=== PATIENT | female | born 1970 | race Caucasian/White ===

== ENCOUNTER 2016-07-21 19:46 | Emergency (ER) | payer MEDICARE ==
[2016-07-21 20:25] VITALS: RESP 18
[2016-07-21] MEDS ORDERED: SODIUM CHLORIDE 0.9% 1,000 ML IV STA ×2 (20:31)
[2016-07-21] MEDS ORDERED: RX INFO: IV CONTRAST WAS GIVEN 1 EACH MISC MISCELLANE PRN (20:31)
[2016-07-21] MEDS ORDERED: MORPHINE SULFATE 4 MG/ML SYRINGE IV STA (20:31)
--- NOTE | 2016-07-21 20:57 | ED ---
General Adult HPI - General Chief complaint: Abdominal Pain Stated complaint: Left Flank Pain Time Seen by Provider: 07/21/16 20:31 Source: patient, RN notes reviewed, old records reviewed Mode of arrival: ambulatory Limitations: no limitations - History of Present Illness Initial comments: This is a 46-year-old female the ER for evaluation. Patient presents today for evaluation of abdominal pain. Patient was any with severe abdominal pain left flank pain left groin pain. Left sided abdominal pain. Patient has history of multiple abdominal surgeries appendectomy Nevin hysterectomy. Patient denies any fevers, no diarrhea, no blood in her stool. No nausea vomiting. No recent travel history, no sick contacts. No colonoscopy history - Related Data Home Medications Medication Instructions Recorded Confirmed ALPRAZolam [Xanax] 1 mg PO BID PRN 04/04/15 07/21/16 Calcium Carbonate/Vitamin D3 1 tab PO DAILY 04/04/15 07/21/16 [Calcium 600 + Vit D Tablet] Cetirizine HCl [Zyrtec] 10 mg PO DAILY 04/04/15 07/21/16 Cholecalciferol [Vitamin D3] 5,000 unit PO DAILY 04/04/15 07/21/16 Est Estrogen 0.625 mg PO DAILY 04/04/15 07/21/16 Hydrocodone/Acetaminophen [[place] 1 tab PO Q6H PRN 04/04/15 07/21/16 10-325] Lisinopril [Zestril] 40 mg PO HS 04/04/15 07/21/16 Metoprolol Tartrate [Lopressor] 50 mg PO BID 04/04/15 07/21/16 amLODIPine [Norvasc] 10 mg PO HS 04/04/15 07/21/16 Gabapentin [Neurontin] 100 mg PO QAM 03/12/16 07/21/16 Bisacodyl [Dulcolax] 5 mg PO DAILY 07/21/16 07/21/16 DULoxetine HCL [Cymbalta] 30 mg PO DAILY 07/21/16 07/21/16 Gabapentin [Neurontin] 200 mg PO HS 07/21/16 07/21/16 Magnesium Oxide [Mag-Ox] 400 mg PO DAILY 07/21/16 07/21/16 Multivitamins, Thera [Multivitamin] 1 tab PO DAILY 01/04/17 01/04/17 Previous Rx's Medication Instructions Recorded Nitrofurantoin Monohyd/M-Cryst 100 mg PO Q12HR #14 cap 07/21/16 [Macrobid] Allergies Allergy/AdvReac Type Severity Reaction Status Date / Time No Known Allergies Allergy Verified 07/21/16 20:51 Review of Systems ROS Statement: Those systems with pertinent positive or pertinent negative responses have been documented in the HPI. ROS Other: All systems not noted in ROS Statement are negative. Past Medical History Past Medical History: Hypertension History of Any Multi-Drug Resistant Organisms: None Reported Past Surgical History: Appendectomy, Cholecystectomy, Hysterectomy, Orthopedic Surgery Additional Past Surgical History / Comment(s): back pain Past Psychological History: Anxiety Smoking Status: Never smoker Past Alcohol Use History: None Reported Past Drug Use History: None Reported General Exam Limitations: no limitations General appearance: alert, in no apparent distress, anxious Head exam: Present: atraumatic, normocephalic, normal inspection Eye exam: Present: normal appearance, PERRL, EOMI. Absent: scleral icterus, conjunctival injection, periorbital swelling ENT exam: Present: normal exam, mucous membranes moist Neck exam: Present: normal inspection. Absent: tenderness, meningismus, lymphadenopathy Respiratory exam: Present: normal lung sounds bilaterally. Absent: respiratory distress, wheezes, rales, rhonchi, stridor Cardiovascular Exam: Present: regular rate, normal rhythm, normal heart sounds. Absent: systolic murmur, diastolic murmur, rubs, gallop, clicks GI/Abdominal exam: Present: soft, normal bowel sounds. Absent: distended, tenderness, guarding, rebound, rigid Extremities exam: Present: normal inspection, full ROM, normal capillary refill. Absent: tenderness, pedal edema, joint swelling, calf tenderness Back exam: Present: normal inspection Neurological exam: Present: alert, oriented X3, CN II-XII intact Psychiatric exam: Present: normal affect, normal mood Skin exam: Present: warm, dry, intact, normal color. Absent: rash Course Vital Signs 07/21/16 20:23 Temperature 98.0 F Pulse Rate 75 Respiratory 18 Rate Blood Pressure 138/75 O2 Sat by Pulse 99 Oximetry - Reevaluation(s) Reevaluation #1: 07/21/16 22:11 Patient's pain is much improved at this time Medical Decision Making - Medical Decision Making 46 female here for evaluation for bowel pain, patient does have severe abdominal pain. Patient's pain is improved with narcotic pain management, CT of abdomen and pelvis is negative for acute disease - Lab Data Result diagrams: 07/21/16 21:15 Lab Results 07/21/16 07/21/16 Range/Units 21:15 22:12 WBC 7.1 (3.8-10.6) k/uL RBC 4.93 (3.80-5.40) m/uL Hgb 14.4 (11.4-16.0) gm/dL Hct 45.1 (34.0-46.0) % MCV 91.6 (80.0-100.0) fL MCH 29.3 (25.0-35.0) pg MCHC 32.0 (31.0-37.0) g/dL RDW 13.2 (11.5-15.5) % Plt Count 297 (150-450) k/uL Neutrophils % 66 % Lymphocytes % 25 % Monocytes % 5 % Eosinophils % 2 % Basophils % 1 % Neutrophils # 4.7 (1.3-7.7) k/uL Lymphocytes # 1.8 (1.0-4.8) k/uL Monocytes # 0.4 (0-1.0) k/uL Eosinophils # 0.1 (0-0.7) k/uL Basophils # 0.0 (0-0.2) k/uL Urine Color Yellow Urine Appearance Cloudy H (Clear) Urine pH 6.5 (5.0-8.0) Ur Specific [place] 1.017 (1.001-1.035) Urine Protein Negative (Negative) Urine Glucose (UA) Negative (Negative) Urine Ketones Negative (Negative) Urine Blood Negative (Negative) Urine Nitrate Negative (Negative) Urine Bilirubin Negative (Negative) Urine Urobilinogen <2.0 (<2.0) mg/dL Ur Leukocyte Esterase Large H (Negative) Urine RBC 6 H (0-5) /hpf Urine WBC 25 H (0-5) /hpf Ur Squamous Epith Cells 6 H (0-4) /hpf Urine Bacteria Rare H (None) /hpf Hyaline Casts 6 H (0-2) /lpf Urine Mucus Many H (None) /hpf - Radiology Data Radiology results: report reviewed (CT abdomen and pelvis is negative for acute disease), image reviewed Disposition Clinical Impression: Abdominal pain, UTI (urinary tract infection) Disposition: HOME SELF-CARE Condition: Good Instructions: Abdominal Pain (ED) Prescriptions: Nitrofurantoin Monohyd/M-Cryst [Macrobid] 100 mg PO Q12HR #14 cap Referrals: Yoandy Goodwin MD [Primary Care Provider] - 1-2 days
[2016-07-21] MEDS ORDERED: HYDROmorphone 1 MG/ML 1 ML SYRINGE IVP STA ×2 (21:14→22:18)
[2016-07-21 21:43] LABS: Basophils % (A) 1 %; CH 30.1; CHCM 33.1; Eosinophils # (A) 0.1 k/uL (0-0.7); Eosinophils % (A) 2 %; HCT 45.1 % (34.0-46.0); HDW 2.59; HGB 14.4 gm/dL (11.4-16.0); Luc # (Auto) 0.12; Luc % (Auto) 2; Lymphocytes # (A) 1.8 k/uL (1.0-4.8); Lymphocytes % (A) 25 %; MCH 29.3 pg (25.0-35.0); MCV 91.6 fL (80.0-100.0); Mean Platelet Volume 7.4; Monocytes # (A) 0.4 k/uL (0-1.0); Monocytes % (A) 5 %; Neutrophils # (A) 4.7 k/uL (1.3-7.7); Neutrophils % (A) 66 %; RBC 4.93 m/uL (3.80-5.40); RDW 13.2 % (11.5-15.5); WBC 7.1 k/uL (3.8-10.6); WBC (Perox) 7.24
--- NOTE | 2016-07-21 22:03 | CT ---
EXAMINATION TYPE: CT abdomen pelvis w con DATE OF EXAM: 07/21/2016 9:53 PM COMPARISON: 03/12/2016 HISTORY: LLQ pain x2 weeks. CT DLP: 2189.5 mGycm Automated exposure control for dose reduction was used. TECHNIQUE: Helical acquisition of images was performed from the lung bases through the pelvis. CONTRAST: Performed without Oral Contrast and with IV Contrast, patient injected with 100 mL of Omnipaque 300. FINDINGS: Lung bases are clear. There is no pleural effusion. There are clips from cholecystectomy. Liver spleen pancreas appear normal. Bile ducts are not dilated . There is no adrenal mass. Kidneys have normal size and contour. There is a 5 mm calcification in th e lower pole left kidney. There is a 3 mm calcification in the upper pole left kidney. There is a 2 c m cyst in the inferior spleen. There is no retroperitoneal adenopathy. There is no ascites. Appendix is not seen. There is no sign o f appendicitis. Bladder distends smoothly. There is no sign of a pelvic mass. There are a few diverti cula in the sigmoid colon. There is no sign of a pelvic mass. I see no bony destructive process. Ther e are spondylotic changes from L3 to S1 with disc space narrowing and vacuum disc. There is probably some bony spinal stenosis at L3-4 and L4-5. There are surgical clips in the stomach apparently from b ariatric surgery. IMPRESSION: SMALL SPLENIC CYST. NONOBSTRUCTING SMALL LEFT RENAL CALCULI. MILD SIGMOID DIVERTICULOSIS. NO SIGN OF ACUTE ABDOMEN AND PELVIS. NO ADVERSE CHANGE COMPARED TO CT SCAN. PREVIOUS SURGERY. THERE IS EVIDENCE OF LUMBAR SPINAL STENOSIS MAINLY AT L4-5.
[2016-07-21] MEDS ORDERED: KETOROLAC 30 MG/ML 1 ML VIAL IVP STA (22:18)
[2016-07-21 22:31] LABS: Appearance,Urine Cloudy (Clear); Bacteria,Urine Rare /hpf; Bilirubin,Urine Negative (Negative); Glucose,Urine (UA) Negative (Negative); Ketones,Urine Negative (Negative); Leukocyte Esterase,Urine Large (Negative); Mucus,Urine Many /hpf; Nitrite,Urine Negative (Negative); PH, Urine 6.5 (5.0-8.0); Particle Count 16253; Protein,Urine Negative (Negative); RBC,Urine 6 /hpf (0-5); Specific Gravity,Urine 1.017 (1.001-1.035); Squamous Epithelial Cell,Urine 6 /hpf (0-4); UA Billing (MACRO vs. MICRO) MICRO; Urobilinogen,Urine <2.0 mg/dL (<2.0); WBC,Urine 25 /hpf (0-5)
[2016-07-21] MEDS ORDERED: NITROFURANTOIN MONOHYD/M-CRYST 100 MG CAP PO STA (22:42)
[2016-07-21 22:56] LABS: Amylase <30 U/L (30-110); Anion Gap 11 mmol/L; Calcium 9.3 mg/dL (8.4-10.2); Carbon Dioxide 28 mmol/L (22-30); Chloride 102 mmol/L (98-107); Glucose 97 mg/dL (74-99); Non-African American GFR(MDRD) >60 (>60 ml/min/1.73 sqM); Sodium 141 mmol/L (137-145); Total Bilirubin 0.7 mg/dL (0.2-1.3)
[2016-07-21 23:00] VITALS: BP 157/76; PULSE 70; TEMP 97.5
[2016-07-21 23:05] LABS: Potassium 4.5 mmol/L (3.5-5.1); Total Protein 6.9 g/dL (6.3-8.2)
[2016-07-21 23:06] LABS: ALT 39 U/L (9-52); AST 37 U/L (14-36); Alkaline Phosphatase 75 U/L (38-126); Blood Urea Nitrogen 17 mg/dL (7-17)
== END 2016-07-21 23:20 | disposition home or self-care (01) ==
LOC: EC 19:46
DX: N39.0 Urinary tract infection, site not specified (principal); I10 Essential (primary) hypertension; F41.9 Anxiety disorder, unspecified; Z79.899 Other long term (current) drug therapy
CPT/HCPCS: 99284; 96374; 96376; 96375; 96361; 36415; 80053; 82150; 83605; 83690; 85025; 81001; 87086; 74177; J1885; J1170; Q9967

== ENCOUNTER 2016-07-24 01:44 | Emergency (ER) | payer MEDICARE ==
[2016-07-24 01:51] VITALS: BP 190/88; PULSE 83; RESP 18; TEMP 97.1
[2016-07-24] MEDS ORDERED: HYDROmorphone 1 MG/ML 1 ML SYRINGE IM STA (02:11)
--- NOTE | 2016-07-24 02:11 | ED ---
Abdominal Pain HPI - General Chief Complaint: Abdominal Pain Stated Complaint: abd pain Time Seen by Provider: 07/24/16 01:53 Source: patient, RN notes reviewed Mode of arrival: ambulatory Limitations: no limitations - History of Present Illness Initial Comments: 46-year-old female presents to emergency room chief complaint of left-sided abdominal wall pain. Patient states she's had this for about a week. Patient states started initially after lifting heavy boxes. Patient states it's in the left side of the abdomen. Patient states she stands up she notices a small bouts of left-sided the belly as well. Patient states she was seen here a few days ago she had a whole workup they thought maybe she had UTI and was sent home. Patient states antibiotics do not seem to be helping. Patient states the pain is just in the left side in one small area few touch. Patient denies any fever chills with this. Patient states she hasn't had any burning or seen in urination any nausea vomiting or diarrhea. Patient states she has had multiple surgeries to the abdomen. Patient denies any recent fever, chills, shortness of breath, chest pain, back pain, nausea vomiting, numbness or tingling, dysuria or hematuria, constipation or diarrhea, headaches or visual changes, or any other current symptoms. - Related Data Home Medications Medication Instructions Recorded Confirmed ALPRAZolam [Xanax] 1 mg PO BID PRN 04/04/15 07/24/16 Calcium Carbonate/Vitamin D3 1 tab PO DAILY 04/04/15 07/24/16 [Calcium 600 + Vit D Tablet] Cetirizine HCl [Zyrtec] 10 mg PO DAILY 04/04/15 07/24/16 Cholecalciferol [Vitamin D3] 5,000 unit PO DAILY 04/04/15 07/24/16 Est Estrogen 0.625 mg PO DAILY 04/04/15 07/24/16 Hydrocodone/Acetaminophen [[place] 1 tab PO Q6H PRN 04/04/15 07/24/16 10-325] Lisinopril [Zestril] 40 mg PO HS 04/04/15 07/24/16 Metoprolol Tartrate [Lopressor] 50 mg PO BID 04/04/15 07/24/16 amLODIPine [Norvasc] 10 mg PO HS 04/04/15 07/24/16 Gabapentin [Neurontin] 100 mg PO QAM 03/12/16 07/24/16 Bisacodyl [Dulcolax] 5 mg PO DAILY 07/21/16 07/24/16 DULoxetine HCL [Cymbalta] 30 mg PO DAILY 07/21/16 07/24/16 Gabapentin [Neurontin] 200 mg PO HS 07/21/16 07/24/16 Magnesium Oxide [Mag-Ox] 400 mg PO DAILY 07/21/16 07/24/16 Multivitamins, Thera [Multivitamin] 1 tab PO DAILY 07/21/16 07/24/16 Previous Rx's Medication Instructions Recorded Nitrofurantoin Monohyd/M-Cryst 100 mg PO Q12HR #14 cap 07/21/16 [Macrobid] Allergies Allergy/AdvReac Type Severity Reaction Status Date / Time No Known Allergies Allergy Verified 07/24/16 01:51 Review of Systems ROS Statement: Those systems with pertinent positive or pertinent negative responses have been documented in the HPI. ROS Other: All systems not noted in ROS Statement are negative. Past Medical History Past Medical History: Hypertension History of Any Multi-Drug Resistant Organisms: None Reported Past Surgical History: Appendectomy, Cholecystectomy, Hysterectomy, Orthopedic Surgery Additional Past Surgical History / Comment(s): back pain Past Psychological History: Anxiety Smoking Status: Never smoker Past Alcohol Use History: None Reported Past Drug Use History: None Reported General Exam - General Exam Comments Initial Comments: General: The patient is awake and alert, in no distress, and does not appear acutely ill. Eye: Pupils are equal, round and reactive to light, extra-ocular movements are intact; there is normal conjunctiva bilaterally. No signs of icterus. Ears, nose, mouth and throat: There are moist mucous membranes and no oral lesions. Neck: The neck is supple, there is no tenderness. Cardiovascular: There is a regular rate and rhythm. No murmur, rub or gallop is appreciated. Respiratory: Lungs are clear to auscultation, respirations are non-labored, breath sounds are equal. No wheezes, stridor, rales, or rhonchi. Gastrointestinal: Soft, non-distended, non-tender abdomen without masses or organomegaly noted. There is no rebound or guarding present. No CVA tenderness. Bowel sounds are unremarkable. Patient does appear to have one area that is superficially tender of the abdomen with no deep tenderness to palpation. Back: There is no tenderness to palpation in the midline. There is no obvious deformity. No rashes noted. Musculoskeletal: Normal ROM, no tenderness, There is no pedal edema. There is no calf tenderness or swelling. Sensation intact. Pulses equal bilaterally 2+. Neurological: CN II-XII intact, There are no obvious motor or sensory deficits. Coordination appears grossly intact. Speech is normal. Skin: Skin is warm and dry and no rashes or lesions are noted. Psychiatric: Cooperative, appropriate mood & affect, normal judgment. Limitations: no limitations Course Vital Signs 07/24/16 01:48 Temperature 97.1 F L Pulse Rate 83 Respiratory 18 Rate Blood Pressure 190/88 O2 Sat by Pulse 100 Oximetry Medical Decision Making - Medical Decision Making 46-year-old female presents emergency Department chief complaint of left-sided superficial abdominal pain. This discussed her suspicion for possible hernia versus other causes. CAT scan from previous and lab work was reviewed. Urine culture was read does not show sign of infection. At this time we discussed follow-up with her surgeon who she states is Dr. Sosa. We discussed that he needs to set the patient. We discussed return parameters and follow-up. We discussed all the patient's family's questions. He stated they understood. This and patient will be discharged home. Disposition Clinical Impression: Abdominal wall pain, Concern about hernia without diagnosis Disposition: HOME SELF-CARE Condition: Stable Instructions: Abdominal Pain (ED) Additional Instructions: Please use medication as discussed. Please follow up with family doctor if symptoms have not improved over the next two days. Please return to the emergency room if your symptoms increase or worsen or for any other concerns. Referrals: Yoandy Goodwin MD [Primary Care Provider] - 1-2 days [place] Sosa MD [Medical Doctor] - 1-2 days Time of Disposition: 02:11
== END 2016-07-24 02:29 | disposition home or self-care (01) ==
LOC: EC 01:44
DX: R10.9 Unspecified abdominal pain (principal); F41.9 Anxiety disorder, unspecified; I10 Essential (primary) hypertension; Z79.899 Other long term (current) drug therapy
CPT/HCPCS: 96372; 99283; J1170

== ENCOUNTER → 2016-08-04 | Outpatient (CLI) | payer MEDICARE ==
--- NOTE | 2016-08-04 23:06 | XR ---
EXAMINATION TYPE: XR abdomen 1V DATE OF EXAM: 08/04/2016 5:00 PM CLINICAL DATA: 46-year-old female left-sided kidney stones, [facility] COMPARISON: CT 07/21/2016 FINDINGS: Supine imaging limited for assessment of free air. Bowel gas pattern is nonobstructive. No significan t stool burden. Suture material in the upper abdomen relating to sleeve gastrectomy. Cholecystectomy clips are present along with a dropped clip in the right paramedian mid abdomen. Couple phlebolith in the pelvis. A clear suspicious urinary calcifications is not identified. Degenerative changes in the lumbar spine. IMPRESSION: The couple 6 mm left lower pole renal calculi seen on CT of 07/21/2016 are not well appreciated radiogr aphically.
== END | disposition home or self-care (01) ==
LOC: RADXRMAIN 16:38
PROVIDERS: ATTEND Family Medicine
DX: N20.0 Calculus of kidney (principal)
CPT/HCPCS: 74000

== ENCOUNTER 2016-09-26 21:11 | Emergency (ER) | payer MEDICARE ==
[2016-09-26] MEDS ORDERED: HYDROmorphone 1 MG/ML 1 ML SYRINGE IVP STA (23:31)
[2016-09-26] MEDS ORDERED: SODIUM CHLORIDE 0.9% 1,000 ML IV STA (23:31)
[2016-09-27 00:07] LABS: Basophils % (A) 1 %; CH 30.3; CHCM 33.2; Eosinophils # (A) 0.1 k/uL (0-0.7); Eosinophils % (A) 2 %; HCT 43.8 % (34.0-46.0); HDW 2.51; HGB 14.4 gm/dL (11.4-16.0); Luc # (Auto) 0.23; Luc % (Auto) 3; Lymphocytes # (A) 2.4 k/uL (1.0-4.8); Lymphocytes % (A) 31 %; MCH 30.3 pg (25.0-35.0); MCHC 32.9 g/dL (31.0-37.0); Mean Platelet Volume 7.3; Monocytes # (A) 0.4 k/uL (0-1.0); Monocytes % (A) 5 %; Neutrophils # (A) 4.4 k/uL (1.3-7.7); Neutrophils % (A) 58 %; RBC 4.77 m/uL (3.80-5.40); RDW 13.3 % (11.5-15.5); WBC 7.5 k/uL (3.8-10.6); WBC (Perox) 7.57
[2016-09-27 00:07] LABS: Appearance,Urine Clear (Clear); Bilirubin,Urine Negative (Negative); Glucose,Urine (UA) Negative (Negative); Ketones,Urine Negative (Negative); Leukocyte Esterase,Urine Negative (Negative); Nitrite,Urine Negative (Negative); Protein,Urine Negative (Negative); UA Billing (MACRO vs. MICRO) CHEM; Urobilinogen,Urine <2.0 mg/dL (<2.0)
[2016-09-27 00:22] LABS: ALT 33 U/L (9-52); AST 21 U/L (14-36); Alkaline Phosphatase 75 U/L (38-126); Amylase 45 U/L (30-110); Anion Gap 9 mmol/L; Blood Urea Nitrogen 14 mg/dL (7-17); Calcium 9.2 mg/dL (8.4-10.2); Carbon Dioxide 30 mmol/L (22-30); Chloride 103 mmol/L (98-107); Glucose 93 mg/dL (74-99); Non-African American GFR(MDRD) >60 (>60 ml/min/1.73 sqM); Potassium 4.3 mmol/L (3.5-5.1); Sodium 142 mmol/L (137-145); Total Bilirubin 0.5 mg/dL (0.2-1.3)
--- NOTE | 2016-09-27 00:51 | XR ---
EXAM: XR Abdomen, 1 View. CLINICAL HISTORY: Reason: abdominal pain TECHNIQUE: Frontal supine view of the abdomen/pelvis. COMPARISON: Abdominal radiographs 08/04/2016 FINDINGS: Intraperitoneal space: Bowel gas pattern is unremarkable. No evidence of bowel obstruction or pneumoperitoneum. Gastrointestinal tract: Unremarkable. No dilation. Organs: Surgical clips right upper quadrant compatible with previous cholecystectomy. No radiopaque renal calculi. No abnormal abdominal calcifications identified. Bones/joints: Unremarkable. IMPRESSION: No radiographic evidence of acute abdominal disease or bowel obstruction.
--- NOTE | 2016-09-27 01:06 | ED ---
Abdominal Pain HPI - General Chief Complaint: Abdominal Pain Stated Complaint: abd pain, Time Seen by Provider: 09/26/16 23:01 Source: patient, RN notes reviewed, old records reviewed Mode of arrival: wheelchair Limitations: no limitations - History of Present Illness Initial Comments: Patient is a 46 year old female with cheif complaint of chronic left lower quadrant abdominal pain. Patient states she has had CT scans, ultrasounds, and multiple lab tests. She states that she deals with this pain chronically, however the past day it became excrutiating. Patient states it feels as if her abdominal muscles are ripping. She denies any specific trauma or movements causing the injury. She states she has a history of kidney stones, but states that she knows this is different than her kidney stones. She states that the pain is only in the abdomen. She has a hysterectomy, and states it is unrelated to gynecologic reasons. She reports she had a bowel movement earlier today. She denies fever, chills, chest pain, shorntess of breath, vomiting, diarrhea, dysuria, hematuria, vaginal discharge. - Related Data Home Medications Medication Instructions Recorded Confirmed ALPRAZolam [Xanax] 1 mg PO BID PRN 04/04/15 09/26/16 Calcium Carbonate/Vitamin D3 1 tab PO DAILY 04/04/15 09/26/16 [Calcium 600 + Vit D Tablet] Cetirizine HCl [Zyrtec] 10 mg PO DAILY 04/04/15 09/26/16 Cholecalciferol [Vitamin D3] 5,000 unit PO DAILY 04/04/15 09/26/16 Est Estrogen 0.625 mg PO DAILY 04/04/15 09/26/16 Hydrocodone/Acetaminophen [[place] 1 tab PO Q6H PRN 04/04/15 09/26/16 10-325] Lisinopril [Zestril] 40 mg PO HS 04/04/15 09/26/16 Metoprolol Tartrate [Lopressor] 50 mg PO BID 04/04/15 09/26/16 amLODIPine [Norvasc] 10 mg PO HS 04/04/15 09/26/16 Gabapentin [Neurontin] 100 mg PO QAM 03/12/16 09/26/16 Bisacodyl [Dulcolax] 5 mg PO DAILY 07/21/16 09/26/16 DULoxetine HCL [Cymbalta] 30 mg PO DAILY 07/21/16 09/26/16 Gabapentin [Neurontin] 200 mg PO HS 07/21/16 09/26/16 Magnesium Oxide [Mag-Ox] 400 mg PO DAILY 07/21/16 09/26/16 Multivitamins, Thera [Multivitamin] 1 tab PO DAILY 07/21/16 09/26/16 Allergies Allergy/AdvReac Type Severity Reaction Status Date / Time No Known Allergies Allergy Verified 09/26/16 21:36 Review of Systems ROS Statement: Those systems with pertinent positive or pertinent negative responses have been documented in the HPI. ROS Other: All systems not noted in ROS Statement are negative. Past Medical History Past Medical History: Hypertension History of Any Multi-Drug Resistant Organisms: None Reported Past Surgical History: Appendectomy, Cholecystectomy, Hysterectomy, Orthopedic Surgery Additional Past Surgical History / Comment(s): back pain Past Psychological History: Anxiety Smoking Status: Never smoker Past Alcohol Use History: None Reported Past Drug Use History: None Reported General Exam Limitations: no limitations General appearance: alert, in no apparent distress Head exam: Present: atraumatic, normocephalic, normal inspection Eye exam: Present: normal appearance, PERRL, EOMI. Absent: scleral icterus, conjunctival injection, periorbital swelling ENT exam: Present: normal exam, mucous membranes moist Neck exam: Present: normal inspection. Absent: tenderness, meningismus, lymphadenopathy Respiratory exam: Present: normal lung sounds bilaterally. Absent: respiratory distress, wheezes, rales, rhonchi, stridor Cardiovascular Exam: Present: regular rate, normal rhythm, normal heart sounds. Absent: systolic murmur, diastolic murmur, rubs, gallop, clicks GI/Abdominal exam: Present: soft, tenderness (patient has tenderness with left lower quadrant. No evidence of bulging mass constent with hernia, patient has positive carnet sign. ), normal bowel sounds. Absent: distended, guarding, rebound, rigid Extremities exam: Present: normal inspection, full ROM, normal capillary refill. Absent: tenderness, pedal edema, joint swelling, calf tenderness Back exam: Present: normal inspection Neurological exam: Present: alert, oriented X3, CN II-XII intact Psychiatric exam: Present: normal affect, normal mood Skin exam: Present: warm, dry, intact, normal color. Absent: rash Course Vital Signs 09/26/16 09/27/16 21:34 01:40 Temperature 98.4 F 97.9 F Pulse Rate 83 77 Respiratory 20 16 Rate Blood Pressure 140/69 131/78 O2 Sat by Pulse 100 98 Oximetry Medical Decision Making - Medical Decision Making Patient is a 46 year old female with acute exacerbation of chronic left lower abdominal pain. Patient has had multiple tests for the past 6 months and no answers were found. Patient lab work was reviewed and patient reports that her pain is managed with IV pain medicine at this time. Patient labs and kub are negative for any acute process. I discussed that patient needs to follow up with PCP and to take at home pain medicaiton. Patient agrees with treatment plan and will comply. - Lab Data Result diagrams: 09/26/16 23:46 09/26/16 23:46 Lab Results 09/26/16 09/26/16 09/26/16 Range/Units 23:37 23:46 23:46 WBC 7.5 (3.8-10.6) k/uL RBC 4.77 (3.80-5.40) m/uL Hgb 14.4 (11.4-16.0) gm/dL Hct 43.8 (34.0-46.0) % MCV 92.0 (80.0-100.0) fL MCH 30.3 (25.0-35.0) pg MCHC 32.9 (31.0-37.0) g/dL RDW 13.3 (11.5-15.5) % Plt Count 310 (150-450) k/uL Neutrophils % 58 % Lymphocytes % 31 % Monocytes % 5 % Eosinophils % 2 % Basophils % 1 % Neutrophils # 4.4 (1.3-7.7) k/uL Lymphocytes # 2.4 (1.0-4.8) k/uL Monocytes # 0.4 (0-1.0) k/uL Eosinophils # 0.1 (0-0.7) k/uL Basophils # 0.0 (0-0.2) k/uL Sodium 142 (137-145) mmol/L Potassium 4.3 (3.5-5.1) mmol/L Chloride 103 (98-107) mmol/L Carbon Dioxide 30 (22-30) mmol/L Anion Gap 9 mmol/L BUN 14 (7-17) mg/dL Creatinine 0.70 (0.52-1.04) mg/dL Est GFR (MDRD) Af Amer >60 (>60 ml/min/1.73 sqM) Est GFR (MDRD) Non-Af >60 (>60 ml/min/1.73 sqM) Glucose 93 (74-99) mg/dL Calcium 9.2 (8.4-10.2) mg/dL Total Bilirubin 0.5 (0.2-1.3) mg/dL AST 21 (14-36) U/L ALT 33 (9-52) U/L Alkaline Phosphatase 75 (38-126) U/L Total Protein 7.0 (6.3-8.2) g/dL Albumin 3.9 (3.5-5.0) g/dL Amylase 45 (30-110) U/L Lipase 247 (23-300) U/L Urine Color Yellow Urine Appearance Clear (Clear) Urine pH 6.0 (5.0-8.0) Ur Specific [place] 1.010 (1.001-1.035) Urine Protein Negative (Negative) Urine Glucose (UA) Negative (Negative) Urine Ketones Negative (Negative) Urine Blood Negative (Negative) Urine Nitrate Negative (Negative) Urine Bilirubin Negative (Negative) Urine Urobilinogen <2.0 (<2.0) mg/dL Ur Leukocyte Esterase Negative (Negative) - Radiology Data Radiology results: report reviewed KUB is negative for any acute process. Disposition Clinical Impression: Abdominal pain, chronic, left lower quadrant Disposition: HOME SELF-CARE Condition: Good Instructions: Abdominal Pain (ED) Additional Instructions: Patient advised to follow up with primary care provider. Return to emergency department if any alarming signs or symptoms occur. Referrals: Yoandy Goodwin MD [Primary Care Provider] - 1-2 days Time of Disposition: 01:05
[2016-09-27 01:41] VITALS: BP 131/78; PULSE 77; RESP 16; TEMP 97.9
== END 2016-09-27 01:40 | disposition home or self-care (01) ==
LOC: EC 21:11
DX: G89.29 Other chronic pain (principal); R10.32 Left lower quadrant pain; Z79.899 Other long term (current) drug therapy; Z79.890 Hormone replacement therapy; I10 Essential (primary) hypertension; F41.9 Anxiety disorder, unspecified; Z90.710 Acquired absence of both cervix and uterus
CPT/HCPCS: 36415; 80053; 82150; 83690; 85025; 81003; 74000; 96374; 96361; 99284; J1170

== ENCOUNTER → 2016-10-27 | Outpatient (CLI) | payer MEDICARE ==
--- NOTE | 2016-10-28 10:03 | MM ---
Reason for exam: screening (asymptomatic). Last mammogram was performed 1 year and 2 months ago. History: Patient is postmenopausal. Benign excisional biopsy of the left breast. Taking estrogen for 14 years 2 months beginning at age 30. Physical Findings: A clinical breast exam by your physician is recommended on an annual basis and results should be correlated with mammographic findings. MG 3D Screening Mammo W/Cad Bilateral CC and MLO view(s) were taken. Prior study comparison: September 10, 2015, left breast MG 3d work up w/cad LT. August 28, 2015, bilateral MG screening mammo w CAD. There are scattered fibroglandular densities. Stable benign calcifications. There is no discrete abnormality. No significant changes when compared with prior studies. ASSESSMENT: Benign, BI-RAD 2 RECOMMENDATION: Routine screening mammogram of both breasts in 1 year.
== END | disposition home or self-care (01) ==
LOC: RADMAMWWP 09:46
PROVIDERS: ATTEND Obstetrics & Gynecology
DX: Z12.31 Encounter for screening mammogram for malignant neoplasm of breast (principal)
CPT/HCPCS: 77063; G0202

== ENCOUNTER → 2017-04-13 | Outpatient (CLI) | payer MEDICARE ==
[2017-04-13 13:13] LABS: Basophils # (A) 0.1 k/uL (0-0.2); Basophils % (A) 1 %; CH 29.6; CHCM 31.1; Eosinophils # (A) 0.2 k/uL (0-0.7); Eosinophils % (A) 3 %; HCT 46.3 % (34.0-46.0); HDW 2.49; HGB 14.4 gm/dL (11.4-16.0); Hypochromasia Slight; Luc # (Auto) 0.16; Luc % (Auto) 2; Lymphocytes # (A) 1.9 k/uL (1.0-4.8); Lymphocytes % (A) 23 %; MCH 29.8 pg (25.0-35.0); MCHC 31.2 g/dL (31.0-37.0); MCV 95.6 fL (80.0-100.0); Monocytes # (A) 0.5 k/uL (0-1.0); Monocytes % (A) 6 %; Neutrophils # (A) 5.6 k/uL (1.3-7.7); Neutrophils % (A) 67 %; RBC 4.84 m/uL (3.80-5.40); RDW 13.9 % (11.5-15.5); WBC 8.3 k/uL (3.8-10.6); WBC (Perox) 8.48
[2017-04-13 13:18] LABS: INR 0.9 (<1.2); Partial Thromboplastin Time 23.1 sec (22.0-30.0); Prothrombin Time 9.7 sec (9.0-12.0)
[2017-04-13 13:36] LABS: Anion Gap 10 mmol/L; Blood Urea Nitrogen 14 mg/dL (7-17); Calcium 9.2 mg/dL (8.4-10.2); Carbon Dioxide 28 mmol/L (22-30); Chloride 106 mmol/L (98-107); Glucose 72 mg/dL (74-99); Non-African American GFR(MDRD) >60 (>60 ml/min/1.73 sqM); Potassium 4.5 mmol/L (3.5-5.1); Sodium 144 mmol/L (137-145)
== END | disposition home or self-care (01) ==
LOC: LABWHC1 12:27
PROVIDERS: ATTEND Family Medicine
DX: Z01.818 Encounter for other preprocedural examination (principal)
CPT/HCPCS: 36415; 80048; 85025; 85610; 85730

== ENCOUNTER → 2017-11-30 | Outpatient (CLI) | payer MEDICARE ==
--- NOTE | 2017-11-30 12:08 | BD ---
EXAMINATION TYPE: Axial Bone Density DATE OF EXAM: 11/30/2017 COMPARISON: NONE CLINICAL HISTORY: 47-year-old female asymptomatic postmenopausal state Height: 5 FT 3 1/2 IN Weight: 278 FRAX RISK QUESTIONS: History of Fracture in Adulthood: YES Secondary Osteoporosis: 3. Menopause before 45: YES RISK FACTORS HISTORY OF: Surgery to Spine/Hip(right/left)/Wrist (right/left): LEFT WRIST CYST REMOVED X2 RT WRIST TENDON REPAI RED When: CYSTS AGE 11 AND 40, RT AGE 34 Active: YES Postmenopausal woman: TOTAL HYST AGE 30 Take estrogen and/or progesterone medications: ESTROTEST How lon YEARS MEDICATIONS: Additional Medications: ESTROTEST , BLOOD PRESSURE, CYMBALTA, NORCO , Additional History: EXAM MEASUREMENTS: Bone mineral densitometry was performed using the [employer] System. Bone mineral density as measured about the Lumbar spine is: ----- L1-L4(G/cm2): 1.644 T Score Values are as follows: ----- L2: 2.7 ----- L3: 4.7 ----- L4: 5.2 ----- L1-L4: 3.9 BASELINE Bone mineral density about the R hip (g/cm2): 1.245 Bone mineral density about the L hip (g/cm2): 1.145 T Score values are as follows: -----R Neck: 1.5 -----L Neck: 0.8 -----R Total: 1.5 -----L Total: 0.9 BASELINE IMPRESSION: Normal (Values between +1 and -1 indicate normal bone mass). Consider repeating this study in 5 year s or sooner if there is some new clinical indication. NOTE: T-SCORE=SD OF THE YOUNG ADULT MEAN.
== END | disposition home or self-care (01) ==
LOC: RADBDWWP 09:58
PROVIDERS: ATTEND Family Medicine
DX: Z78.0 Asymptomatic menopausal state (principal)
CPT/HCPCS: 77080

== ENCOUNTER 2018-01-01 03:27 | Emergency (ER) | payer MEDICARE ==
[2018-01-01 03:38] VITALS: RESP 18
[2018-01-01] MEDS ORDERED: DIAZEPAM 5 MG/ML 2 ML INJ IM STA (03:57)
[2018-01-01] MEDS ORDERED: KETOROLAC 60 MG/2 ML VIAL IM STA (03:57)
--- NOTE | 2018-01-01 04:02 | ED ---
General Adult HPI - General Chief complaint: Abdominal Pain Stated complaint: Flank Pain Time Seen by Provider: 01/01/18 03:35 Source: patient, RN notes reviewed Mode of arrival: wheelchair Limitations: no limitations - History of Present Illness Initial comments: This is a 47-year-old female presents emergency Department complaining of right lower back pain. Patient states this is been ongoing for a week and a half. Patient states any kind of bending twisting motion increases the pain. Patient states she might have a little increased frequency of urine but there has been no dysuria or hematuria. Patient states his been no recent injury to the back she doesn't recall falling lifting or straining in any way. Patient states she takes [employer] are ready for her back pain carpal tunnel and neuropathy. Patient denies any recent fever chills or cough. Patient denies any abdominal pain. Patient denies any chest pain or difficulty breathing. - Related Data Home Medications Medication Instructions Recorded Confirmed ALPRAZolam [Xanax] 1 mg PO BID PRN 04/04/15 09/26/16 Calcium Carbonate/Vitamin D3 1 tab PO DAILY 04/04/15 09/26/16 [Calcium 600 + Vit D Tablet] Cetirizine HCl [Zyrtec] 10 mg PO DAILY 04/04/15 09/26/16 Cholecalciferol [Vitamin D3] 5,000 unit PO DAILY 04/04/15 09/26/16 Est Estrogen 0.625 mg PO DAILY 04/04/15 09/26/16 Hydrocodone/Acetaminophen [[place] 1 tab PO Q6H PRN 04/04/15 09/26/16 10-325] Lisinopril [Zestril] 40 mg PO HS 04/04/15 09/26/16 Metoprolol Tartrate [Lopressor] 50 mg PO BID 04/04/15 09/26/16 amLODIPine [Norvasc] 10 mg PO HS 04/04/15 09/26/16 Gabapentin [Neurontin] 100 mg PO QA 03/12/16 09/26/16 Bisacodyl [Dulcolax] 5 mg PO DAILY 07/21/16 09/26/16 DULoxetine HCL [Cymbalta] 30 mg PO DAILY 07/21/16 09/26/16 Gabapentin [Neurontin] 200 mg PO HS 07/21/16 09/26/16 Magnesium Oxide [Mag-Ox] 400 mg PO DAILY 07/21/16 09/26/16 Multivitamins, Thera [Multivitamin] 1 tab PO DAILY 07/21/16 09/26/16 Previous Rx's Medication Instructions Recorded Cyclobenzaprine [Flexeril] 10 mg PO TID #20 tab 01/01/18 Allergies Allergy/AdvReac Type Severity Reaction Status Date / Time No Known Allergies Allergy Verified 01/01/18 03:38 Review of Systems ROS Statement: Those systems with pertinent positive or pertinent negative responses have been documented in the HPI. ROS Other: All systems not noted in ROS Statement are negative. Past Medical History Past Medical History: Hypertension Additional Past Medical History / Comment(s): kidney stones History of Any Multi-Drug Resistant Organisms: None Reported Past Surgical History: Appendectomy, Cholecystectomy, Hysterectomy, Orthopedic Surgery Additional Past Surgical History / Comment(s): back pain, left knee replacement Past Psychological History: Anxiety Smoking Status: Never smoker Past Alcohol Use History: None Reported Past Drug Use History: None Reported General Exam - General Exam Comments Initial Comments: GENERAL: Patient is well-developed and well-nourished. Patient is nontoxic and well- hydrated and is in mild distress. ENT: Neck is soft and supple. No significant lymphadenopathy is noted. Oropharynx is clear. Moist mucous membranes. Neck has full range of motion without eliciting any pain. EYES: The sclera were anicteric and conjunctiva were pink and moist. Extraocular movements were intact and pupils were equal round and reactive to light. Eyelids were unremarkable. PULMONARY: Unlabored respirations. Good breath sounds bilaterally. No audible rales rhonchi or wheezing was noted. CARDIOVASCULAR: There is a regular rate and rhythm without any murmurs gallops or rubs. ABDOMEN: Soft and nontender with normal bowel sounds. SKIN: Skin is clear with no lesions or rashes and otherwise unremarkable. NEUROLOGIC: Patient is alert and oriented x3. Cranial nerves II through XII are grossly intact. Motor and sensory are also intact. Normal speech, volume and content. Symmetrical smile. MUSCULOSKELETAL: Normal extremities with adequate strength and full range of motion. No lower extremity swelling or edema. No calf tenderness. LYMPHATICS: No significant lymphadenopathy is noted PSYCHIATRIC: Normal psychiatric evaluation. Normal interpersonal interactions appears functionally intact in deals appropriately with others. No signs of depression. No signs of anxiety. Limitations: no limitations Course Vital Signs 01/01/18 01/01/18 03:34 04:51 Temperature 98.0 F Pulse Rate 69 69 Respiratory 18 18 Rate Blood Pressure 113/67 123/56 O2 Sat by Pulse 99 99 Oximetry Medical Decision Making - Medical Decision Making I went into reevaluate the patient she was doing much better. She has an appointment to follow up with her physician early this week. - Lab Data Lab Results 01/01/18 Range/Units 03:47 Urine Color Yellow Urine Appearance Cloudy H (Clear) Urine pH 6.5 (5.0-8.0) Ur Specific [place] 1.011 (1.001-1.035) Urine Protein Negative (Negative) Urine Glucose (UA) Negative (Negative) Urine Ketones Negative (Negative) Urine Blood Negative (Negative) Urine Nitrite Negative (Negative) Urine Bilirubin Negative (Negative) Urine Urobilinogen <2.0 (<2.0) mg/dL Ur Leukocyte Esterase Small H (Negative) Urine WBC 4 (0-5) /hpf Ur Squamous Epith Cells 10 H (0-4) /hpf Urine Bacteria Rare H (None) /hpf Urine Mucus Rare H (None) /hpf Disposition Clinical Impression: Musculoskeletal back pain Disposition: HOME SELF-CARE Condition: Good Instructions: Acute Low Back Pain (ED) Prescriptions: Cyclobenzaprine [Flexeril] 10 mg PO TID #20 tab Is patient prescribed a controlled substance at d/c from ED?: No Referrals: Jasiel Meléndez MD [Primary Care Provider] - 1-2 days Time of Disposition: 05:26
[2018-01-01] MEDS ORDERED: DIAZEPAM 5 MG/ML 2 ML INJ IVP STA (04:08)
[2018-01-01] MEDS ORDERED: KETOROLAC 30 MG/ML 1 ML VIAL IVP STA (04:09)
[2018-01-01 04:14] LABS: Appearance,Urine Cloudy (Clear); Bacteria,Urine Rare /hpf; Bilirubin,Urine Negative (Negative); Blood,Urine Negative (Negative); Color,Urine Yellow; Glucose,Urine (UA) Negative (Negative); Ketones,Urine Negative (Negative); Leukocyte Esterase,Urine Small (Negative); Mucus,Urine Rare /hpf; Nitrite,Urine Negative (Negative); PH, Urine 6.5 (5.0-8.0); Protein,Urine Negative (Negative); Specific Gravity,Urine 1.011 (1.001-1.035); Squamous Epithelial Cell,Urine 10 /hpf (0-4); Urobilinogen,Urine <2.0 mg/dL (<2.0); WBC,Urine 4 /hpf (0-5)
[2018-01-01] MEDS ORDERED: HYDROmorphone 0.5 MG/0.5 ML SYRINGE IVP STA (04:40)
[2018-01-01 05:50] VITALS: BP 136/62; PULSE 62; TEMP 97.9
== END 2018-01-01 05:48 | disposition home or self-care (01) ==
LOC: EC 03:27
DX: M54.5 Low back pain (principal); R10.31 Right lower quadrant pain; I10 Essential (primary) hypertension; F41.9 Anxiety disorder, unspecified; Z90.49 Acquired absence of other specified parts of digestive tract; Z79.890 Hormone replacement therapy; Z79.899 Other long term (current) drug therapy
CPT/HCPCS: 81001; 99284; 96374; 96375 ×2; J3360; J1885; J1170

== ENCOUNTER → 2018-01-02 | Outpatient (CLI) | payer MEDICARE ==
--- NOTE | 2018-01-03 00:08 | MR ---
EXAMINATION TYPE: MR lumbar spine wo con DATE OF EXAM: 01/02/2018 COMPARISON: August 19, 2009 HISTORY: LBP, BLE radic x years; no hx trauma/surgery TECHNIQUE: Multiplanar, multisequence images of the lumbar spine were acquired. The lumbar vertebra have normal alignment. There is mild to moderate narrowing of disc spaces from L3 to S1. There is posterior disc herniation to a mild degree at L3-4. There is some hypertrophic facet arthropathy at L4-5 with mild lateral recess stenosis. There is no significant spinal stenosis. The visualized sacroiliac joints show cystic changes. I see no focal bone destruction. There is no lumbar paraspinal mass. There is no compression fracture. The neuroforamina are fairly well-maintained. IMPRESSION: Spondylotic changes from L3 to S1. Small posterior disc herniations at L3-4 L4-5. No spinal stenosis. There is overall not adverse change compared to old exam.
== END | disposition home or self-care (01) ==
LOC: RADMRIMAIN 17:48
PROVIDERS: ATTEND Psychiatry & Neurology Neurology
DX: M51.26 Other intervertebral disc displacement, lumbar region (principal); M47.816 Spondylosis without myelopathy or radiculopathy, lumbar region
CPT/HCPCS: 72148

== ENCOUNTER → 2018-05-08 | Outpatient (CLI) | payer MEDICARE ==
--- NOTE | 2018-05-08 12:09 | XR ---
EXAMINATION TYPE: XR hand complete LT DATE OF EXAM: 05/08/2018 CLINICAL HISTORY: pain TECHNIQUE: Frontal, lateral and oblique images of the left hand are obtained. COMPARISON: None. FINDINGS: There is no acute fracture/dislocation evident. Severe narrowing at the first carpometacar pal joint with underlying bony collapse and fragmentation seen. The overlying soft tissue appears unr emarkable. IMPRESSION: There is no acute fracture or dislocation. ICD 10 NO FRACTURE, INITIAL EVALUATION
== END | disposition home or self-care (01) ==
LOC: RADXRMAIN 11:07
PROVIDERS: ATTEND Physician Assistant
DX: M79.642 Pain in left hand (principal)

== ENCOUNTER 2018-09-23 22:53 | Emergency (ER) | payer MEDICARE ==
[2018-09-23 23:23] VITALS: BP 142/79; PULSE 74; RESP 16; TEMP 98.2
[2018-09-23] MEDS ORDERED: KETOROLAC 60 MG/2 ML VIAL IM STA (23:44)
[2018-09-23] MEDS ORDERED: MORPHINE SULFATE 2 MG/ML SYRINGE IM STA (23:44)
--- NOTE | 2018-09-23 23:51 | ED ---
General Adult HPI - General Chief complaint: Extremity Injury, Upper Stated complaint: In-Quicker Hand Swelling Time Seen by Provider: 09/23/18 23:27 Source: patient, family, RN notes reviewed Mode of arrival: ambulatory Limitations: no limitations - History of Present Illness Initial comments: Patient is a pleasant 48-year-old female presenting to the emergency Department with complaints of left hand pain and swelling. Patient has had symptoms since around April. Patient did have x-rays done twice, last was yesterday. Patient did see a local hand specialist yesterday and was given a localized injection of steroid. Patient states since that time discomfort has increased and swelling has increased a little bit as well. Patient denies any color change or warmth or fever. Patient does routinely see a glass breaker however does not have any diagnosed rheumatological disease. Patient has not seen her glass breaker this has started. Area of involvement is the MCP of the left ring finger. - Related Data Home Medications Medication Instructions Recorded Confirmed ALPRAZolam [Xanax] 1 mg PO BID PRN 04/04/15 09/26/16 Calcium Carbonate/Vitamin D3 1 tab PO DAILY 04/04/15 09/26/16 [Calcium 600 + Vit D Tablet] Cetirizine HCl [Zyrtec] 10 mg PO DAILY 04/04/15 09/26/16 Cholecalciferol [Vitamin D3] 5,000 unit PO DAILY 04/04/15 09/26/16 Est Estrogen 0.625 mg PO DAILY 04/04/15 09/26/16 Hydrocodone/Acetaminophen [[place] 1 tab PO Q6H PRN 04/04/15 09/26/16 10-325] Lisinopril [Zestril] 40 mg PO HS 04/04/15 09/26/16 Metoprolol Tartrate [Lopressor] 50 mg PO BID 04/04/15 09/26/16 amLODIPine [Norvasc] 10 mg PO HS 04/04/15 09/26/16 Gabapentin [Neurontin] 100 mg PO QA 03/12/16 09/26/16 Bisacodyl [Dulcolax] 5 mg PO DAILY 07/21/16 09/26/16 DULoxetine HCL [Cymbalta] 30 mg PO DAILY 07/21/16 09/26/16 Gabapentin [Neurontin] 200 mg PO HS 07/21/16 09/26/16 Magnesium Oxide [Mag-Ox] 400 mg PO DAILY 07/21/16 09/26/16 Multivitamins, Thera [Multivitamin] 1 tab PO DAILY 07/21/16 09/26/16 Previous Rx's Medication Instructions Recorded Cyclobenzaprine [Flexeril] 10 mg PO TID #20 tab 01/01/18 predniSONE 20 mg PO BID #10 tab 09/23/18 Allergies Allergy/AdvReac Type Severity Reaction Status Date / Time No Known Allergies Allergy Verified 09/23/18 23:23 Review of Systems ROS Statement: Those systems with pertinent positive or pertinent negative responses have been documented in the HPI. Constitutional: Denies: fever Eyes: Denies: eye pain ENT: Denies: ear pain Respiratory: Denies: cough Cardiovascular: Denies: chest pain Endocrine: Denies: fatigue Gastrointestinal: Denies: abdominal pain Genitourinary: Denies: dysuria Musculoskeletal: Reports: arthralgia Skin: Denies: rash Neurological: Denies: weakness Past Medical History Past Medical History: Hypertension Additional Past Medical History / Comment(s): kidney stones, trigger finger History of Any Multi-Drug Resistant Organisms: None Reported Past Surgical History: Appendectomy, Cholecystectomy, Hysterectomy, Orthopedic Surgery Additional Past Surgical History / Comment(s): back pain, left knee replacement Past Psychological History: Anxiety Smoking Status: Never smoker Past Alcohol Use History: None Reported Past Drug Use History: None Reported General Exam Limitations: no limitations General appearance: alert, in no apparent distress Head exam: Present: atraumatic Eye exam: Present: normal appearance Respiratory exam: Present: normal lung sounds bilaterally Cardiovascular Exam: Present: regular rate, normal rhythm Left Hand Wrist exam: Present: full ROM, tenderness (Index finger MCP), swelling (Index MCP), other (No warmth). Absent: erythema Vascular: Present: normal capillary refill. Absent: vascular compromise Neurological exam: Present: alert. Absent: motor sensory deficit Psychiatric exam: Present: normal affect, normal mood Skin exam: Present: normal color. Absent: rash, erythema Course Vital Signs 09/23/18 23:16 Temperature 98.2 F Pulse Rate 74 Respiratory 16 Rate Blood Pressure 142/79 O2 Sat by Pulse 98 Oximetry Medical Decision Making - Medical Decision Making Patient does have mild to moderate swelling over the next finger MCP with associated tenderness. Patient states this is somewhat chronic. No signs of infection. No warmth or erythema. Full range of motion. Sensation intact distally. Patient will be given medication for pain and inflammation in the emergency department. Patient will be prescribed steroid if symptoms continue tomorrow. Patient will need to have close follow-up with her orthopedic doctor on Tuesday. Disposition Clinical Impression: Hand swelling Disposition: HOME SELF-CARE Condition: Stable Instructions (If sedation given, give patient instructions): Arthralgia (ED) Additional Instructions: Start steroids tomorrow if symptoms persist. Please follow-up with your orthopedic doctor Tuesday. Please also follow-up with your glass breaker and primary care physician. Return for increased pain, swelling, redness, warmth, fever, worsening symptoms or other concerns. Prescriptions: predniSONE 20 mg PO BID #10 tab Is patient prescribed a controlled substance at d/c from ED?: No Referrals: Jasiel Meléndez MD [Primary Care Provider] - 1-2 days Luis Cowan DO [Medical Doctor] - 1-2 days Time of Disposition: 23:50
--- NOTE | 2018-09-24 00:04 | ED ---
Disposition Clinical Impression: Hand swelling Disposition: HOME SELF-CARE Condition: Stable Instructions (If sedation given, give patient instructions): Arthralgia (ED) Additional Instructions: Start steroids tomorrow if symptoms persist. Please follow-up with your orthopedic doctor Tuesday. Please also follow-up with your strategy associate and primary care physician. Return for increased pain, swelling, redness, warmth, fever, worsening symptoms or other concerns. Prescriptions: predniSONE 20 mg PO BID #10 tab Is patient prescribed a controlled substance at d/c from ED?: No Referrals: Jasiel Meléndez MD [Primary Care Provider] - 1-2 days Luis Cowan DO [Medical Doctor] - 1-2 days Procedures - Orthopedic Splinting/Casting Injury #1 Side: left Upper Extremity Injury Location: short arm, hand Upper Extremity Immobilizer: volar splint
== END 2018-09-24 00:05 | disposition home or self-care (01) ==
LOC: EC 22:53
DX: M79.89 Other specified soft tissue disorders (principal); M79.642 Pain in left hand; I10 Essential (primary) hypertension; F41.9 Anxiety disorder, unspecified; Z79.890 Hormone replacement therapy; Z79.899 Other long term (current) drug therapy; Z87.39 Personal history of other diseases of the musculoskeletal system and connective tissue
CPT/HCPCS: 99283; 96372 ×2; J1885; J2270

== ENCOUNTER → 2018-12-25 | Outpatient (CLI) | payer OTHER | END | disposition home or self-care (01) | LOC: RADMRIMAIN 11:12 | PROVIDERS: ATTEND Orthopaedic Surgery | DX: Z53.9 Procedure and treatment not carried out, unspecified reason (principal) ==

== ENCOUNTER → 2018-12-26 | Outpatient (CLI) | payer OTHER ==
--- NOTE | 2018-12-27 12:24 | MR ---
EXAMINATION TYPE: MR hand LT wo con DATE OF EXAM: 12/26/2018 COMPARISON: 05/08/2018 left hand x-ray HISTORY: Left hand pain, swelling, and limited movement. TECHNIQUE: Multiplanar, multisequence images of the left hand were acquired per department protocol. FINDINGS: There is extensive degenerative change of the first carpometacarpal joint with capsular hyp ertrophy and discontinuity of the anterior metacarpal ligament. The radial collateral ligament appear s grossly intact but bowed by the capsular hypertrophy and bony productive change. Small osseous cyst s are seen of the first metacarpal base, lunate, and capitellum that are presumed to be degenerative in nature. The flexor and extensor compartments appear unremarkable. Radial and ulnar nerves also appear unremar kable. No extrinsic compression is seen. No focal bone marrow edema is appreciated. Osseous cyst within the ulnar styloid process is seen. Giv en the larger field of view there is some limitation in evaluation of the triangular fibrocartilage h owever no discrete tear is seen and there is no fluid in the distal radioulnar joint. The scapholunat e ligament and lunatotriquetral ligaments appear intact. No joint effusion. Small osseous cysts of the third metatarsal head is seen. Small probable bone island within the secon d proximal phalanx although not appreciated on the exam of 05/08/2018. IMPRESSION: 1. Extensive arthropathic changes of the first carpometacarpal joint with discontinuity of the anteri or metacarpal ligament and bowing of the radial collateral ligament by capsular hypertrophy and bony productive change. 2. Carpal carpal ligaments appear intact however there is suboptimal evaluation of the triangular fib rocartilage given the large [id number]. No gross defect. 3. Mild arthropathy of the carpals with multiple osseous cysts. No bone marrow edema is seen.
== END | disposition home or self-care (01) ==
LOC: RADMRIMAIN 11:43
PROVIDERS: ATTEND Orthopaedic Surgery
DX: M19.042 Primary osteoarthritis, left hand (principal); M18.12 Unilateral primary osteoarthritis of first carpometacarpal joint, left hand; M85.642 Other cyst of bone, left hand; M24.242 Disorder of ligament, left hand

== ENCOUNTER → 2019-03-29 | Outpatient (CLI) | payer OTHER ==
--- NOTE | 2019-03-29 10:29 | MM ---
Reason for exam: screening (asymptomatic). Last mammogram was performed 2 years and 5 months ago. History: Patient is postmenopausal. Benign excisional biopsy of the left breast. Taking estrogen for 16 years 7 months beginning at age 30. Physical Findings: A clinical breast exam by your physician is recommended on an annual basis and results should be correlated with mammographic findings. MG Screening Mammo w CAD Bilateral CC, MLO, and XCCL view(s) were taken. Prior study comparison: October 27, 2016, bilateral MG 3d screening mammo w/cad. September 10, 2015, left breast MG 3d work up w/cad LT. There are scattered fibroglandular densities. There are benign appearing round calcifications bilaterally. There is no discrete abnormality. ASSESSMENT: Benign, BI-RAD 2 RECOMMENDATION: Routine screening mammogram of both breasts in 1 year.
== END | disposition home or self-care (01) ==
LOC: RADMAMWWP 08:41
PROVIDERS: ATTEND Obstetrics & Gynecology
DX: Z12.31 Encounter for screening mammogram for malignant neoplasm of breast (principal)
CPT/HCPCS: 77067

== ENCOUNTER → 2019-06-27 | Outpatient (CLI) | payer OTHER ==
--- NOTE | 2019-06-27 20:17 | XR ---
EXAMINATION TYPE: XR foot complete RT DATE OF EXAM: 06/27/2019 COMPARISON: NONE HISTORY: Foot pain TECHNIQUE: 3 views FINDINGS: Metatarsals are intact. There are moderate plantar and Achilles calcaneal spurs. There are no erosions. Joint spaces are fairly normal. IMPRESSION: Calcaneal spurring. No fracture. No sign of inflammatory arthritis.
== END | disposition home or self-care (01) ==
LOC: RADXRMAIN 16:38
PROVIDERS: ATTEND Family Medicine
DX: M77.31 Calcaneal spur, right foot (principal)

== ENCOUNTER 2019-08-10 13:36 | Emergency (ER) | payer OTHER ==
[2019-08-10] MEDS ORDERED: HYDROcodone/APAP 5-325MG 1 EACH TAB PO STA (14:15)
[2019-08-10] MEDS ORDERED: IBUPROFEN 400 MG TAB PO STA (14:15)
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
[2019-08-10] MEDS ORDERED: HYDROmorphone 1 MG/ML 1 ML SYRINGE IM STA (16:06)
[2019-08-10 16:31] VITALS: BP 142/78; PULSE 64; RESP 16; TEMP 98.2
== END 2019-08-10 16:30 | disposition home or self-care (01) ==
LOC: EC 13:36
DX: S49.92XA Unspecified injury of left shoulder and upper arm, initial encounter (principal); S89.92XA Unspecified injury of left lower leg, initial encounter; I10 Essential (primary) hypertension; F41.9 Anxiety disorder, unspecified; Z79.890 Hormone replacement therapy; Z79.899 Other long term (current) drug therapy; Z96.653 Presence of artificial knee joint, bilateral; V47.5XXA Car driver injured in collision with fixed or stationary object in traffic accident, initial encounter; Y93.89 Activity, other specified; Y92.410 Unspecified street and highway as the place of occurrence of the external cause
CPT/HCPCS: 73030; 73562; 71045; 99284; 96372; J1170

== ENCOUNTER 2019-11-09 16:18 | Emergency (ER) | payer OTHER ==
[2019-11-09 16:22] VITALS: RESP 18
[2019-11-09] MEDS ORDERED: KETOROLAC 30 MG/ML 1 ML VIAL IVP STA (16:42)
[2019-11-09] MEDS ORDERED: SODIUM CHLORIDE 0.9% 1,000 ML IV STA (16:42)
[2019-11-09 17:03] LABS: Appearance,Urine Clear (Clear); Bacteria,Urine Occasional /hpf; Basophils % (A) 1 %; Bilirubin,Urine Negative (Negative); Blood,Urine Negative (Negative); Calcium Oxalate Crystals,Urine Rare /hpf; Color,Urine Yellow; Eosinophils # (A) 0.5 k/uL (0-0.7); Eosinophils % (A) 8 %; Glucose,Urine (UA) Negative (Negative); HCT 43.4 % (34.0-46.0); HGB 13.5 gm/dL (11.4-16.0); Hypochromasia Slight; Ketones,Urine Negative (Negative); Leukocyte Esterase,Urine Moderate (Negative); Lymphocytes # (A) 2.3 k/uL (1.0-4.8); Lymphocytes % (A) 33 %; MCH 28.1 pg (25.0-35.0); MCHC 31.1 g/dL (31.0-37.0); MCV 90.3 fL (80.0-100.0); Monocytes # (A) 0.3 k/uL (0-1.0); Monocytes % (A) 5 %; Mucus,Urine Many /hpf; Neutrophils # (A) 3.5 k/uL (1.3-7.7); Neutrophils % (A) 51 %; Nitrite,Urine Negative (Negative); Platelet Count 430 k/uL (150-450); Protein,Urine Trace (Negative); RBC 4.81 m/uL (3.80-5.40); RBC,Urine 1 /hpf (0-5); RDW 14.4 % (11.5-15.5); Specific Gravity,Urine 1.026 (1.001-1.035); Squamous Epithelial Cell,Urine 5 /hpf (0-4); WBC 6.9 k/uL (3.8-10.6); WBC,Urine 4 /hpf (0-5)
[2019-11-09 17:12] LABS: ALT 18 U/L (4-34); AST 24 U/L (14-36); African American GFR (CKD) >90 (>60 ml/min/1.73 sqM); Albumin 3.9 g/dL (3.5-5.0); Alkaline Phosphatase 81 U/L (38-126); Anion Gap 8 mmol/L; Blood Urea Nitrogen 16 mg/dL (7-17); Calcium 8.7 mg/dL (8.4-10.2); Carbon Dioxide 27 mmol/L (22-30); Chloride 104 mmol/L (98-107); Glucose 114 mg/dL (74-99); Non-African American GFR(CKD) >90 (>60 ml/min/1.73 sqM); Potassium 4.1 mmol/L (3.5-5.1); Sodium 139 mmol/L (137-145); Total Bilirubin 0.3 mg/dL (0.2-1.3)
--- NOTE | 2019-11-09 17:34 | CT ---
EXAMINATION TYPE: CT abdomen pelvis wo con DATE OF EXAM: 11/09/2019 COMPARISON: 07/21/2016 INDICATION: left flank pain, hx of stones. DLP: 1745 mGycm, Automated exposure control for dose reduction was used. CONTRAST: 0 mL of Isovue 300. Study performed without Oral Contrast TECHNIQUE: Axial images were obtained from above the diaphragm to the pubic rami in the axial plane a t 5 mm thick sections. Reconstructed images are reviewed on the computer in the coronal plane. FINDINGS: Limited CT sections are obtained the lung bases. The lung bases are clear. CT ABDOMEN: Gastric sleeve is been performed. Small hiatal hernia is present. Liver: Normal Spleen: Normal Pancreas: Normal Adrenal glands: The adrenal glands are normal. Gallbladder: Surgically absent Kidneys: No masses are evident. No hydronephrosis is present. No cysts are present. There is a 0.3 cm mid left lateral of renal stone without obstruction. There are several calcifications at the infe rior pole left kidney. The largest measures 0.5 cm transverse. No obstruction is evident. No ureteral stones are evident. Aorta: Normal Inferior vena cava: Normal. CT PELVIS: Loops of bowel within the abdomen and pelvis are normal. The studies performed without oral contr ast limiting bowel evaluation. There may be some mild diverticulosis. No adjacent inflammatory change s to suggest acute diverticulitis is evident. Appears to be an anastomosis in the right lower quadran t between small bowel and colon. Appendix: Not identified. No suspicious dilated tubular structures or inflammatory changes are eviden t. Urinary bladder: Decompressed with limited evaluation. No suspicious calcifications are evident. Genitourinary structures: Uterus and ovaries are not identified. Osseous structures: No suspicious lytic or sclerotic lesions. IMPRESSIONS: 1. Nonobstructing left renal stones. 2. Mild diverticulosis without acute diverticulitis. 3. Postsurgical bowel changes.
[2019-11-09] MEDS ORDERED: MORPHINE SULFATE 4 MG/ML SYRINGE IVP STA (17:39)
--- NOTE | 2019-11-09 17:50 | ED ---
Abdominal Pain HPI - General Chief Complaint: Abdominal Pain Stated Complaint: lt sided flank pain Time Seen by Provider: 11/09/19 16:26 Source: patient Mode of arrival: ambulatory Limitations: no limitations - History of Present Illness Initial Comments: Patient is a 49-year-old female presenting to emergency Department with complaints of left-sided flank pain 3 days. Patient states she has a history of kidney stones and this feels similar. She denies any fever, chills, nausea, vomiting. She's been having regular bowel movements. She does admit to mild dysuria. She denies any hematuria. She does have history of multiple abdominal surgeries including hysterectomy, tummy tuck, and other exploratory surgeries for an infection. She does take [place] as at home 3 times a day. She states this is not helping with her pain. She has no other complaints at this time. She denies chance for secondary to hysterectomy. Upon arrival to the ER, her vital signs are stable. - Related Data Home Medications Medication Instructions Recorded Confirmed Hydrocodone/Acetaminophen [[place] 1 tab PO TID 04/04/15 11/09/19 10-325] Lisinopril [Zestril] 40 mg PO HS 04/04/15 11/09/19 Metoprolol Tartrate [Lopressor] 50 mg PO BID 04/04/15 11/09/19 amLODIPine [Norvasc] 10 mg PO HS 04/04/15 11/09/19 Gabapentin [Neurontin] 100 mg PO QAM 03/12/16 11/09/19 Gabapentin [Neurontin] 300 mg PO HS 07/21/16 11/09/19 Multivitamins, Thera [Multivitamin] 1 tab PO DAILY 07/21/16 11/09/19 Bisacodyl [Dulcolax] 5 mg PO DAILY 11/09/19 11/09/19 DULoxetine HCL [Cymbalta] 60 mg PO BID 11/09/19 11/09/19 Estratest Hs 0.625-1.25mg Tab 1 tab PO DAILY 11/09/19 11/09/19 Fexofenadine HCl [Meaghan Allergy] 180 mg PO DAILY 11/09/19 11/09/19 Previous Rx's Medication Instructions Recorded Cephalexin [Keflex] 500 mg PO BID 5 Days #10 cap 11/09/19 Ketorolac [Toradol] 10 mg PO Q8HR #10 tab 11/09/19 Tamsulosin [Flomax] 0.4 mg PO DAILY #7 cap 11/09/19 Allergies Allergy/AdvReac Type Severity Reaction Status Date / Time No Known Allergies Allergy Verified 11/09/19 17:40 Review of Systems ROS Statement: Those systems with pertinent positive or pertinent negative responses have been documented in the HPI. ROS Other: All systems not noted in ROS Statement are negative. Past Medical History Past Medical History: Hypertension Additional Past Medical History / Comment(s): kidney stones, trigger finger History of Any Multi-Drug Resistant Organisms: None Reported Past Surgical History: Appendectomy, Cholecystectomy, Hysterectomy, Orthopedic Surgery Additional Past Surgical History / Comment(s): left knee replacement, Right knee been replaced twice Past Psychological History: Anxiety Smoking Status: Never smoker Past Alcohol Use History: None Reported Past Drug Use History: None Reported General Exam - General Exam Comments Initial Comments: GENERAL: Well-appearing, well-nourished and in no acute distress. HEAD: Atraumatic, normocephalic. EYES: Pupils equal round and reactive to light, extraocular movements intact, sclera anicteric, conjunctiva are normal. ENT: TMs normal, nares patent, oropharynx clear without exudates. Moist mucous membranes. NECK: Normal range of motion, supple without lymphadenopathy or JVD. LUNGS: Breath sounds clear to auscultation bilaterally and equal. No wheezes rales or rhonchi. HEART: Regular rate and rhythm without murmurs, rubs or gallops. ABDOMEN: Left sided abdominal tenderness, mild left flank pain. Soft, normoactive bowel sounds. No guarding, no rebound. No masses appreciated. : Deferred EXTREMITIES: Normal range of motion, no pitting or edema. No clubbing or cyanosis. NEUROLOGICAL: Normal speech, normal gait. PSYCH: Normal mood, normal affect. SKIN: Warm, Dry, normal turgor, no rashes or lesions noted. Limitations: no limitations Course Vital Signs 11/09/19 11/09/19 11/09/19 16:20 17:02 17:55 Temperature 98 F 98.2 F Pulse Rate 80 75 72 Respiratory 18 18 18 Rate Blood Pressure 160/91 116/56 129/67 O2 Sat by Pulse 100 97 95 Oximetry Medical Decision Making - Medical Decision Making Patient is a 49-year-old female presenting with left-sided flank pain with radiation into the left groin 3 days. She does have history kidney stones and states this feels similar. She denies recent fever. Her vital signs are stable upon arrival. On exam patient has some mild left flank pain tenderness and left-sided abdominal tenderness. Her labs are unremarkable. UA shows evidence of bacteria, leukocyte Estrace. CT of the abdomen shows nonobstructing left sided renal stones, mild diverticulosis without acute diverticulitis. No other acute findings. I did discuss these findings with the patient. Suggested that she might have recently passed a small stone. Patient will be started on antibiotics as well as Flomax and Toradol for pain relief. She is in agreement with this plan of care. She is stable for discharge. Return parameters were discussed with the patient she verbalized understanding. Case discussed with Dr. Hernández. - Lab Data Result diagrams: 11/09/19 16:54 11/09/19 16:54 Lab Results 11/09/19 11/09/19 11/09/19 Range/Units 16:54 16:54 16:54 WBC 6.9 (3.8-10.6) k/uL RBC 4.81 (3.80-5.40) m/uL Hgb 13.5 (11.4-16.0) gm/dL Hct 43.4 (34.0-46.0) % MCV 90.3 (80.0-100.0) fL MCH 28.1 (25.0-35.0) pg MCHC 31.1 (31.0-37.0) g/dL RDW 14.4 (11.5-15.5) % Plt Count 430 (150-450) k/uL Neutrophils % 51 % Lymphocytes % 33 % Monocytes % 5 % Eosinophils % 8 % Basophils % 1 % Neutrophils # 3.5 (1.3-7.7) k/uL Lymphocytes # 2.3 (1.0-4.8) k/uL Monocytes # 0.3 (0-1.0) k/uL Eosinophils # 0.5 (0-0.7) k/uL Basophils # 0.0 (0-0.2) k/uL Hypochromasia Slight Sodium 139 (137-145) mmol/L Potassium 4.1 (3.5-5.1) mmol/L Chloride 104 (98-107) mmol/L Carbon Dioxide 27 (22-30) mmol/L Anion Gap 8 mmol/L BUN 16 (7-17) mg/dL Creatinine 0.68 (0.52-1.04) mg/dL Est GFR (CKD-EPI)AfAm >90 (>60 ml/min/1.73 sqM) Est GFR (CKD-EPI)NonAf >90 (>60 ml/min/1.73 sqM) Glucose 114 H (74-99) mg/dL Calcium 8.7 (8.4-10.2) mg/dL Total Bilirubin 0.3 (0.2-1.3) mg/dL AST 24 (14-36) U/L ALT 18 (4-34) U/L Alkaline Phosphatase 81 (38-126) U/L Total Protein 7.0 (6.3-8.2) g/dL Albumin 3.9 (3.5-5.0) g/dL Urine Color Yellow Urine Appearance Clear (Clear) Urine pH 6.0 (5.0-8.0) Ur Specific [place] 1.026 (1.001-1.035) Urine Protein Trace H (Negative) Urine Glucose (UA) Negative (Negative) Urine Ketones Negative (Negative) Urine Blood Negative (Negative) Urine Nitrite Negative (Negative) Urine Bilirubin Negative (Negative) Urine Urobilinogen 3.0 (<2.0) mg/dL Ur Leukocyte Esterase Moderate H (Negative) Urine RBC 1 (0-5) /hpf Urine WBC 4 (0-5) /hpf Ur Squamous Epith Cells 5 H (0-4) /hpf Calcium Oxalate Crystal Rare H (None) /hpf Urine Bacteria Occasional H (None) /hpf Urine Mucus Many H (None) /hpf Disposition Clinical Impression: Left flank pain, UTI (urinary tract infection), Calculus of left kidney Disposition: HOME SELF-CARE Condition: Stable Instructions (If sedation given, give patient instructions): Kidney Stones (ED) Additional Instructions: Please return to the Emergency Department if symptoms worsen or any other concerns. Take medications as prescribed. Follow-up with PCP. Prescriptions: Tamsulosin [Flomax] 0.4 mg PO DAILY #7 cap Cephalexin [Keflex] 500 mg PO BID 5 Days #10 cap Ketorolac [Toradol] 10 mg PO Q8HR #10 tab Is patient prescribed a controlled substance at d/c from ED?: No Referrals: Jasiel Meléndez MD [Primary Care Provider] - 1-2 days
[2019-11-09 17:56] VITALS: BP 129/67; PULSE 72; TEMP 98.2
== END 2019-11-09 18:03 | disposition home or self-care (01) ==
LOC: EC 16:18
DX: N39.0 Urinary tract infection, site not specified (principal); N20.0 Calculus of kidney; K57.90 Diverticulosis of intestine, part unspecified, without perforation or abscess without bleeding; I10 Essential (primary) hypertension; F41.9 Anxiety disorder, unspecified; Z79.899 Other long term (current) drug therapy; Z90.49 Acquired absence of other specified parts of digestive tract; Z90.89 Acquired absence of other organs; Z90.710 Acquired absence of both cervix and uterus; Z96.653 Presence of artificial knee joint, bilateral
CPT/HCPCS: 96374; 96375; 96361; 99284; 36415; 80053; 85025; 81001; 74176; J2270; J1885

== ENCOUNTER → 2020-05-12 | Outpatient (CLI) | payer OTHER ==
--- NOTE | 2020-05-14 10:34 | MM ---
Reason for exam: screening (asymptomatic). Last mammogram was performed 1 year and 1 month ago. History: Patient is postmenopausal. Benign excisional biopsy of the left breast. Taking estrogen for 16 years 7 months beginning at age 30. Physical Findings: A clinical breast exam by your physician is recommended on an annual basis and results should be correlated with mammographic findings. MG 3D Screening Mammo W/Cad Bilateral CC and MLO view(s) were taken. Prior study comparison: March 29, 2019, bilateral MG screening mammo w CAD. October 27, 2016, bilateral MG 3d screening mammo w/cad. There are scattered fibroglandular densities. There are benign appearing round calcifications bilaterally. There is no discrete abnormality. ASSESSMENT: Benign, BI-RAD 2 RECOMMENDATION: Routine screening mammogram of both breasts in 1 year.
== END | disposition home or self-care (01) ==
LOC: RADMAMWWP 13:17
PROVIDERS: ATTEND Family Medicine
DX: Z12.31 Encounter for screening mammogram for malignant neoplasm of breast (principal)
CPT/HCPCS: 77063; 77067

== ENCOUNTER → 2020-09-03 | Outpatient (CLI) | payer OTHER ==
--- NOTE | 2020-09-03 15:38 | US ---
EXAMINATION TYPE: US bladder DATE OF EXAM: 09/03/2020 COMPARISON: CT 2019 CLINICAL HISTORY: R32 Unspecified urinary incontinence.... EXAM MEASUREMENTS: Post Void Residual Volume: 16.5 mL Color Doppler performed to assess ureteral jets. Bilateral Jets seen: no Normal Post Void Residual (less than 50ml): yes IMPRESSION: Nonvisualization of ureteral jets.
--- NOTE | 2020-09-03 16:41 | CT ---
EXAMINATION TYPE: CT lower leg LT wo con DATE OF EXAM: 09/03/2020 COMPARISON: None INDICATION: Left leg pain radiating from hip down to knee x couple months, no injury. DLP: 1752.5 mGycm, Automated exposure control for dose reduction was used. CONTRAST: None CT of the left lower extremity is performed from above the femoral head to the lower tibia. Three-D r econstructed images performed on a separate computer by the technologist are reviewed. There is some limitation due to beam hardening artifact from the left knee prosthesis. 2-D reconstructed images in the coronal and sagittal plane are reviewed on the computer. FINDINGS: Femoral head articulates with the acetabulum. Diffuse mild joint space narrowing may be present. No a cute fracture at the femoral neck is evident. Femoral shaft to the prosthesis is intact. Knee prosthesis causes limitation at the joint space. The portion of the distal femur and proximal ti chivo is visualized however appears intact. Some very subtle lucency surrounding the tibial stem of the prosthesis may be present. Consider the possibility of loosening. Fibula appears intact. The tibia included away from the prosthesis appears normal. There is beam hard ening artifact from left ankle prosthesis. IMPRESSIONS: 1. There may be some lucency surrounding the tibial stem of the prosthesis. Consider the possibilit y of loosening. Consider bone scan for additional evaluation with attention to the left knee. 2. Osseous structures as visualized otherwise appear intact.
== END | disposition home or self-care (01) ==
LOC: RADUSWWP 15:08
PROVIDERS: ATTEND Family Medicine
DX: M79.605 Pain in left leg (principal); R32 Unspecified urinary incontinence
CPT/HCPCS: 76857

== ENCOUNTER 2020-09-08 15:19 | Emergency (ER) | payer OTHER ==
[2020-09-08 15:23] VITALS: RESP 18; TEMP 97.5
--- NOTE | 2020-09-08 15:37 | ED ---
General Adult HPI - General Chief complaint: Extremity Injury, Lower Stated complaint: R Ankle Pain Time Seen by Provider: 09/08/20 15:31 Source: patient, RN notes reviewed Mode of arrival: wheelchair Limitations: physical limitation - History of Present Illness Initial comments: Patient is a pleasant 50-year-old female presenting to the emergency Department with complaints of right ankle pain. Onset of symptoms was yesterday. Patient was shopping at [employer] when she felt a snap in her ankle. Patient states there is no fall. No significant foot pain. Patient states discomfort has increased since yesterday. Discomfort does increase with ambulation. Patient is able and really with discomfort. No other area of injury or concern. No history of chronic right ankle pain. - Related Data Home Medications Medication Instructions Recorded Confirmed Hydrocodone/Acetaminophen [[place] 1 tab PO TID 04/04/15 11/09/19 10-325] Metoprolol Tartrate [Lopressor] 50 mg PO BID 04/04/15 11/09/19 amLODIPine [Norvasc] 10 mg PO HS 04/04/15 11/09/19 lisinopriL [Zestril] 40 mg PO HS 04/04/15 11/09/19 Gabapentin [Neurontin] 100 mg PO QAM 03/12/16 11/09/19 Gabapentin [Neurontin] 300 mg PO HS 07/21/16 11/09/19 Multivitamins, Thera [Multivitamin] 1 tab PO DAILY 07/21/16 11/09/19 DULoxetine HCL [Cymbalta] 60 mg PO BID 11/09/19 11/09/19 Estratest Hs 0.625-1.25mg Tab 1 tab PO DAILY 11/09/19 11/09/19 Fexofenadine HCl [Meaghan Allergy] 180 mg PO DAILY 11/09/19 11/09/19 bisacodyL [Dulcolax] 5 mg PO DAILY 11/09/19 11/09/19 Previous Rx's Medication Instructions Recorded Cephalexin [Keflex] 500 mg PO BID 5 Days #10 cap 11/09/19 Ketorolac [Toradol] 10 mg PO Q8HR #10 tab 11/09/19 Tamsulosin [Flomax] 0.4 mg PO DAILY #7 cap 11/09/19 Allergies Allergy/AdvReac Type Severity Reaction Status Date / Time No Known Allergies Allergy Verified 09/08/20 15:23 Review of Systems ROS Statement: Those systems with pertinent positive or pertinent negative responses have been documented in the HPI. ROS Other: All systems not noted in ROS Statement are negative. Constitutional: Denies: fever Eyes: Denies: eye pain ENT: Denies: ear pain Respiratory: Denies: cough Cardiovascular: Denies: chest pain Endocrine: Denies: fatigue Gastrointestinal: Denies: abdominal pain Genitourinary: Denies: urgency Musculoskeletal: Reports: as per HPI Skin: Denies: rash Neurological: Denies: weakness Past Medical History Past Medical History: Hypertension Additional Past Medical History / Comment(s): kidney stones, trigger finger History of Any Multi-Drug Resistant Organisms: None Reported Past Surgical History: Appendectomy, Cholecystectomy, Hysterectomy, Orthopedic Surgery Additional Past Surgical History / Comment(s): left knee replacement, Right knee been replaced twice Past Psychological History: Anxiety Smoking Status: Never smoker Past Alcohol Use History: None Reported Past Drug Use History: None Reported General Exam Limitations: physical limitation General appearance: alert, in no apparent distress, obese Head exam: Present: atraumatic Eye exam: Present: normal appearance Neck exam: Present: normal inspection Respiratory exam: Present: normal lung sounds bilaterally Cardiovascular Exam: Present: regular rate, normal rhythm Expanded Peripheral pulses: 2+: Posterior Tibialis (R), Dorsalis Pedis (R) GI/Abdominal exam: Present: soft. Absent: tenderness Extremities exam: Present: tenderness (Mild tenderness medial greater than lateral ankle. No foot tenderness. No tenderness of the proximal tib-fib.). Absent: calf tenderness Neurological exam: Present: alert Psychiatric exam: Present: normal affect, normal mood Skin exam: Present: normal color Course Vital Signs 09/08/20 15:20 Temperature 97.5 F L Pulse Rate 66 Respiratory 18 Rate Blood Pressure 151/83 O2 Sat by Pulse 100 Oximetry Medical Decision Making - Medical Decision Making Patient reevaluated and resting comfortably in bed. Patient updated on results and need for follow-up. - Radiology Data Radiology results: image reviewed (Right ankle x-ray reveals no acute process) Disposition Clinical Impression: Ankle sprain Disposition: HOME SELF-CARE Condition: Stable Instructions (If sedation given, give patient instructions): Ankle Sprain (ED) Additional Instructions: Rest, ice, compression, elevation. [id number] Motrin as needed. Return for increased pain, swelling, worsening symptoms or other concerns. Please f ollow-up with primary care physician in the next day or 2 for recheck. If symptoms continue consider orthopedic evaluation. Is patient prescribed a controlled substance at d/c from ED?: No Referrals: Jasiel Meléndez MD [Primary Care Provider] - 1-2 days Time of Disposition: 16:49
--- NOTE | 2020-09-08 16:33 | XR ---
RESULT: HISTORY: pain TECHNIQUE: 3 views of the right ankle were obtained. COMPARISON: None. FINDINGS: There is no acute fracture or dislocation. There are scattered mild degenerative changes. Prior post surgical changes of the calcaneus are seen. The ankle mortise is congruent. IMPRESSION: No acute osseous abnormality. Mild osteoarthritis.
[2020-09-08 16:56] VITALS: BP 142/80; PULSE 70
== END 2020-09-08 17:06 | disposition home or self-care (01) ==
LOC: EC 15:19
DX: S93.401A Sprain of unspecified ligament of right ankle, initial encounter (principal); I10 Essential (primary) hypertension; Z79.899 Other long term (current) drug therapy; F41.9 Anxiety disorder, unspecified; Z96.653 Presence of artificial knee joint, bilateral; X50.9XXA Other and unspecified overexertion or strenuous movements or postures, initial encounter; Y93.01 Activity, walking, marching and hiking; Y92.89 Other specified places as the place of occurrence of the external cause
CPT/HCPCS: 73610; 29515; 99283; L4350

== ENCOUNTER 2020-10-19 00:19 | Emergency (ER) | payer OTHER ==
[2020-10-19 00:25] VITALS: RESP 18
[2020-10-19] MEDS ORDERED: IBUPROFEN 400 MG TAB PO STA (00:55)
[2020-10-19] MEDS ORDERED: ACETAMINOPHEN TAB 325 MG TAB PO STA (00:55)
--- NOTE | 2020-10-19 01:00 | ED ---
Fever HPI - General Chief Complaint: Fever Stated Complaint: Cough, SOB Time Seen by Provider: 10/19/20 00:30 Source: patient Mode of arrival: wheelchair Limitations: no limitations - History of Present Illness MD Complaint: fever -: days(s) Context: sick contacts Associated Symptoms: chills, myalgias, headache, cough Treatments Prior to Arrival: Acetaminophen - Related Data Home Medications Medication Instructions Recorded Confirmed Hydrocodone/Acetaminophen [[place] 1 tab PO TID 04/04/15 11/09/19 10-325] Metoprolol Tartrate [Lopressor] 50 mg PO BID 04/04/15 11/09/19 amLODIPine [Norvasc] 10 mg PO HS 04/04/15 11/09/19 lisinopriL [Zestril] 40 mg PO HS 04/04/15 11/09/19 Gabapentin [Neurontin] 100 mg PO QAM 03/12/16 11/09/19 Gabapentin [Neurontin] 300 mg PO HS 07/21/16 11/09/19 Multivitamins, Thera [Multivitamin] 1 tab PO DAILY 07/21/16 11/09/19 DULoxetine HCL [Cymbalta] 60 mg PO BID 11/09/19 11/09/19 Estratest Hs 0.625-1.25mg Tab 1 tab PO DAILY 11/09/19 11/09/19 Fexofenadine HCl [Meaghan Allergy] 180 mg PO DAILY 11/09/19 11/09/19 bisacodyL [Dulcolax] 5 mg PO DAILY 11/09/19 11/09/19 Previous Rx's Medication Instructions Recorded Cephalexin [Keflex] 500 mg PO BID 5 Days #10 cap 11/09/19 Ketorolac [Toradol] 10 mg PO Q8HR #10 tab 11/09/19 Tamsulosin [Flomax] 0.4 mg PO DAILY #7 cap 11/09/19 Allergies Allergy/AdvReac Type Severity Reaction Status Date / Time No Known Allergies Allergy Verified 10/19/20 00:20 Review of Systems ROS Statement: Those systems with pertinent positive or pertinent negative responses have been documented in the HPI. ROS Other: All systems not noted in ROS Statement are negative. Constitutional: Reports: fever, chills Respiratory: Reports: cough. Denies: dyspnea, hemoptysis Cardiovascular: Denies: chest pain, palpitations, edema Gastrointestinal: Denies: abdominal pain, nausea, vomiting, diarrhea Genitourinary: Denies: dysuria, hematuria Musculoskeletal: Reports: myalgia. Denies: back pain Skin: Denies: rash Neurological: Reports: headache. Denies: weakness, numbness, confusion Past Medical History Past Medical History: Hypertension Additional Past Medical History / Comment(s): kidney stones, trigger finger History of Any Multi-Drug Resistant Organisms: None Reported Past Surgical History: Appendectomy, Cholecystectomy, Hysterectomy, Orthopedic Surgery Additional Past Surgical History / Comment(s): left knee replacement, Right knee been replaced twice Past Psychological History: Anxiety Smoking Status: Never smoker Past Alcohol Use History: None Reported Past Drug Use History: None Reported General Exam Limitations: no limitations General appearance: alert, in no apparent distress Head exam: Present: atraumatic, normocephalic Eye exam: Present: normal appearance. Absent: scleral icterus, conjunctival injection ENT exam: Present: normal oropharynx Neck exam: Present: normal inspection, full ROM Respiratory exam: Present: normal lung sounds bilaterally. Absent: respiratory distress, wheezes, rales, rhonchi, stridor Cardiovascular Exam: Present: normal rhythm, tachycardia, normal heart sounds. Absent: systolic murmur, diastolic murmur, rubs, gallop GI/Abdominal exam: Present: soft. Absent: distended, tenderness, guarding, rebound, rigid, mass Extremities exam: Present: normal inspection, normal capillary refill. Absent: pedal edema, calf tenderness Back exam: Present: normal inspection. Absent: CVA tenderness (R), CVA tenderness (L) Neurological exam: Present: alert Skin exam: Present: warm, dry, intact, normal color. Absent: rash Course Vital Signs 10/19/20 00:22 Temperature 101.1 F H Pulse Rate 113 H Respiratory 18 Rate Blood Pressure 138/72 O2 Sat by Pulse 95 Oximetry Medical Decision Making - Lab Data Lab Results 10/19/20 Range/Units 01:32 Coronavirus (PCR) Detected A (Not Detectd) Disposition Clinical Impression: COVID-19 Disposition: HOME SELF-CARE Condition: Good Instructions (If sedation given, give patient instructions): Coronavirus Disease 2019 (COVID-19) Is patient prescribed a controlled substance at d/c from ED?: No Referrals: Jasiel Meléndez MD [Primary Care Provider] - 1-2 days
[2020-10-19] MEDS ORDERED: ONDANSETRON 4 MG/2 ML VIAL IVP STA (01:30)
[2020-10-19] MEDS ORDERED: ONDANSETRON ODT 4 MG TAB PO STA (01:32)
[2020-10-19 03:54] VITALS: BP 122/64; PULSE 86; TEMP 98.7
[2020-10-19] MEDS ORDERED: BAMLANIVIMAB (EUA) 700 MG, ETESEVIMAB (EUA) 1,400 MG in SODIUM CHLORIDE 0.9% 50 ML IVPB ONE (04:00)
== END 2020-10-19 05:35 | disposition home or self-care (01) ==
LOC: EC 00:19
DX: U07.1 COVID-19 (principal); R00.0 Tachycardia, unspecified; F41.9 Anxiety disorder, unspecified; I10 Essential (primary) hypertension; Z79.899 Other long term (current) drug therapy; Z90.49 Acquired absence of other specified parts of digestive tract; Z90.710 Acquired absence of both cervix and uterus; Z96.653 Presence of artificial knee joint, bilateral
CPT/HCPCS: 87635; 99283; 96374; Q0245

== ENCOUNTER → 2020-11-03 | Outpatient (CLI) | payer OTHER ==
--- NOTE | 2020-11-03 14:51 | XR ---
EXAMINATION TYPE: XR wrist limited bilateral DATE OF EXAM: 11/03/2020 COMPARISON: Left hand 05/08/2018 HISTORY: 50-year-old female with bilateral wrist pain after fall 5 days ago. M25.531., M25.532 TECHNIQUE: 2 views each side FINDINGS: Left: End-stage degenerative changes of the left basal joint of the thumb with loss of joint space, extensi ve hyperostotic degenerative spurring and sclerosis and cystic change. The radiocarpal and distal rad ioulnar joint as well as the metacarpals appear intact. No acute fracture, subluxation, dislocation. Right: 5 mm corticated bone fragment adjacent to the ulnar styloid process. Mild to moderate degenerative ch cristian first CMC joint with marginal spurring and either a 2 mm fragmented spur loose body. Radiocarpal and distal radioulnar joint as well as the midcarpal compartment appear intact. No acute fracture, s ubluxation, or dislocation. IMPRESSION: 1. 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 No acute oss eous abnormality seen. 2. Right: 5 mm corticated bone fragment adjacent to the ulnar styloid process could represent an acce ssory ossicle or sequela of remote injury. Mild to moderate overall OA at the basal joint of the thum b. No acute osseous abnormality seen.
== END | disposition home or self-care (01) ==
LOC: RADXRMAIN 14:26
PROVIDERS: ATTEND Nurse Practitioner Family
DX: M19.032 Primary osteoarthritis, left wrist (principal)

== ENCOUNTER → 2021-02-25 | Outpatient (CLI) | payer OTHER ==
--- NOTE | 2021-02-25 16:06 | XR ---
EXAMINATION TYPE: XR knee complete LT DATE OF EXAM: 02/25/2021 COMPARISON: 08/10/2019 HISTORY: Pain left patella following fall TECHNIQUE: 3 view left knee FINDINGS: Tibial and femoral components are present. No acute fractures or dislocations are evident. Postsurgical changes along the posterior patella. Small joint effusion may be difficult to exclude. N o moderate or large effusion is evident. Couple of small calcifications are inferior to the patella w hich may be fragments joint space. These appear to be present previously on comparison study. IMPRESSION: 1. No acute osseous abnormality. Left knee prosthesis is present.
--- NOTE | 2021-02-25 16:07 | XR ---
EXAMINATION TYPE: XR shoulder complete LT DATE OF EXAM: 02/25/2021 COMPARISON: NONE HISTORY: Pain TECHNIQUE: Shoulder examined in 3 views FINDINGS: The humeral head articulates with the glenoid. The acromio-clavicular junction is normal. No acute fractures or dislocations are evident. A follow up study can be performed 7-10 days from acute trauma for continued pain. IMPRESSION: 1. Normal three-view left Shoulder
== END | disposition home or self-care (01) ==
LOC: RADXRMAIN 15:25
PROVIDERS: ATTEND Nurse Practitioner
DX: M25.519 Pain in unspecified shoulder (principal); M25.562 Pain in left knee

== ENCOUNTER 2021-05-13 09:57 | Day surgery (SDC) | payer OTHER ==
[2021-05-11 12:20] VITALS: BMI 46.3
--- NOTE | 2021-05-12 20:12 | HP ---
HISTORY AND PHYSICAL DATE OF SURGERY: 05/13/2021 Alexia Borrego is a 50-year-old patient seen with progressive left shoulder pain. We discussed options regarding treatment. She elected to proceed with left shoulder arthroscopy. Consent was obtained. PAST MEDICAL HISTORY: Hypertension, hyperlipidemia. PAST SURGICAL HISTORY: Bilateral total knee arthroplasty, revision right total knee arthroplasty, right shoulder rotator cuff repair, gastric sleeve surgery. DAILY MEDICATIONS: Amlodipine, Cymbalta, lisinopril, metoprolol. ALLERGIES: NONE. SOCIAL HISTORY: She denies tobacco use. PHYSICAL EVALUATION OF THE LEFT SHOULDER: Flexion is 50 degrees. Abduction is 40 degrees. External rotation zero with weakness. Tenderness along the anterolateral acromion and rotator cuff insertion site. Impingement is positive at 80 degrees. Cross-body adduction sign is positive. Drop- arm sign is positive. Distal neurovascular exam is intact. IMAGING: Left shoulder radiographs revealed a type 2 acromion, evidence for acromioclavicular joint osteoarthritis, and cystic changes of the tuberosity. Left shoulder MRI revealed a retracted rotator cuff tear, severe subacromial space narrowing, impingement and acromioclavicular joint osteoarthritis. IMPRESSION: 1. Left shoulder impingement with retracted rotator cuff tear. 2. Left shoulder acromioclavicular joint osteoarthritis. 3. Hypertension. 4. Hyperlipidemia. PLAN: Left shoulder arthroscopy with subacromial decompression, arthroscopic rotator cuff repair, Jose Luis procedure and debridement. MMODL / IJN: [id number] /
[~2021-05-13 09:57] MED LIST: DEXAMETHASONE SOD PHOSPHATE 4 MG/ML 1 ML VIAL IV ONE; HYDROmorphone 0.5 MG/0.5 ML SYRINGE IVP PRN; LACTATED RINGERS 1,000 ML IV SCH; LIDOCAINE 1% (10MG/ML) FOR IV START INTRADERMA PRN; MIDAZOLAM 2 MG/2 ML VIAL IV PRN; ONDANSETRON 4 MG/2 ML VIAL IVP ONE; SCOPOLAMINE 1.5MG/72HR PATCH TRANSDERM ONE; ceFAZolin 3 GM in SODIUM CHLORIDE 0.9% 100 ML IVPB PRN; fentaNYL (PF) 50 MCG/ML 2 ML AMP IVP PRN
[2021-05-13] MEDS ORDERED: MIDAZOLAM 2 MG/2 ML VIAL IVP ONE (11:08)
[2021-05-13] MEDS ORDERED: fentaNYL (PF) 50 MCG/ML 2 ML AMP IVP ONE (11:09)
[2021-05-13] MEDS ORDERED: SUCCINYLCHOLINE CHLORIDE 100 MG/5 ML SYR IV ONE (11:16)
[2021-05-13] MEDS ORDERED: PROPOFOL 10 MG/ML 20 ML VIAL IV ONE (11:16)
[2021-05-13] MEDS ORDERED: LIDOCAINE 1% INJ 10MG/ML (20 ML MDV) ONE (11:16)
[2021-05-13] MEDS ORDERED: ROPIVACAINE 5 MG/ML 30 ML VIAL ONE (11:16)
[2021-05-13] MEDS ORDERED: PHENYLEPHRINE-0.9% NACL SYG 1,000 MCG/10 ML SYRINGE ONE (11:16)
[2021-05-13] MEDS ORDERED: MIDAZOLAM 2 MG/2 ML VIAL ONE (11:16)
[2021-05-13] MEDS ORDERED: fentaNYL (PF) 50 MCG/ML 2 ML AMP ONE (11:16)
[2021-05-13] MEDS ORDERED: ePHEDrine 50 MG/ML 1 ML AMP ONE (11:16)
--- NOTE | 2021-05-13 11:24 | P.ANPRN ---
Procedure Note - Anesthesia - Nerve Block Performed Left Interscalene Single Time Out Performed: Yes (1107) Date of Procedure: 05/13/21 Procedure Start Time: 11:08 Procedure Stop Time: 11:15 Location of Patient: PreOp Indication: Acute Post-Operative Pain, Requested by Surgeon Specifically requested for management of pain by DrAyesha: Memo Pedraza Sedation Type: Sedate with meaningful contact maintained Preparation: Sterile Prep Position: Supine Catheter: None Needle Types: Pajunk Needle Gauge: 21 Ultrasound used to visualize needle placement: Yes Ultrasound used to observe medication spread: Yes Injectate: 0.5% Ropivacaine (see comment for volume) (30cc) Blood Aspirated: No Pain Paresthesia on Injection Noted: No Resistance on Injection: Normal Image Stored and Saved: Yes Events: Uneventful and Well Tolerated
[2021-05-13] MEDS ORDERED: LACTATED RINGERS 1,000 ML IV ONE (12:10)
--- NOTE | 2021-05-13 13:45 | P.OP ---
Date of Procedure: 05/13/21 Preoperative Diagnosis: Left shoulder impingement Postoperative Diagnosis: 1. Left shoulder large rotator cuff tendon tear 2. Left shoulder impingement 3. Left shoulder acromioclavicular joint osteoarthritis 4. Left shoulder superficial labral tear 5. Left shoulder long head biceps tendon tear Procedure(s) Performed: 1. Left shoulder arthroscopic rotator cuff repair 2. Left shoulder arthroscopic subacromial decompression 3. Left shoulder arthroscopic Jose Luis procedure 4. Left shoulder arthroscopic debridement labral tear 5. Left shoulder arthroscopic biceps tenotomy Implants: 4Arthrex swivel lock anchors Anesthesia: GETA, regional (Interscalene block) Surgeon: Memo Pedraza Protective Signal Repairer #1: Seymour Hardwick Estimated Blood Loss (ml): 11 Pathology: none sent Condition: stable Disposition: PACU Indications for Procedure: 50-year-old patient seen with progressive left shoulder pain. After treatment options were discussed, she elected to proceed with arthroscopy. Operative Findings: See description of procedure Description of Procedure: Patient underwent an interscalene block by department of anesthesia. The patient was then taken to the operative suite. The patient underwent a general anesthetic by the department of anesthesia. The patient was placed into a lateral position and secured. There was appropriate padding of the bony prominence. Left shoulder was then prepped and draped in normal sterile orthopedic fashion. We placed the extremity in 10 pounds of longitudinal traction. A posterior incision was now made for a posterior working portal site. The trocar and cannula were inserted into the glenohumeral joint. Arthroscopy was initiated. Spinal needle was now inserted anteriorly, to ascertain the anterior working portal site. An incision was now made in that area, a trocar was inserted followed by a probe. There was some superficial tearing of the superior labrum. There was partial tearing hyperemia long head biceps tendon. I performed an arthroscopic biceps tenotomy. I debrided that superficial labral tear getting down to stable labral tissue. I noted grade 2 chondromalacia of the humeral head with no osteochondral tears present. The residual labrum was probed and found to be stable. Instruments removed from glenohumeral joint. Utilizing the posterior working portal site, the trocar and cannula were inse rted into the subacromial space. Arthroscopy initiated. I made an incision 2 fingerbreadths lateral to the acromion. I introduced my trocar followed by my ArthroCare ablator. I now began ablating thick subacromial bursal tissue, which exposed the undersurface of the anterior acromion. There was diminished subacromial space. There was a very prominent anterior acromion. A motorized bur was introduced and a subacromial decompression was performed. I also excised some osteophytes off the inferior aspect of the distal clavicle. The AC joint was visualized and noted to be fairly arthritic. The motorized bur was introduced in the anterior portal site and a Jose Luis procedure was performed without difficulty, decompressing the AC joint nicely. I turned my attention to the rotator cuff. There was a 3.54 cm rotator cuff tear. I debrided the margins getting down to stable tendon tissue. I placed 2 converging sutures centrally. I was able to pull the tendon over the footprint. I introduced my motorized bur and abraded the footprint area, getting some petechial bleeding. I now made an accessory portal site off the lateral aspect of the acromion. I punched 2 holes medial for medial row fixation with the assistance of Carson HANCOCK carefully tapping the punch with a mallet as I held the punch and the camera. I now introduced both anchors into the pre-punched holes and Carson HANCOCK tapped them with the mallet as I held anchors and the camera. Carson HANCOCK now screwed the anchors in place a while I held the anchor guide and camera. All 8 limbs of suture were now passed through good bites of rotator cuff tendon. I also passed an additional length stitch anteriorly and posteriorly. I now punched 2 holes for lateral row fixation again I held the punch and camera while Carson HANCOCK used a mallet to tap in the punch. We now passed sutures through both anchors and individually I introduced the anchors into the pre-punch holes I held the anchor guide in position with one hand holding the camera with the other hand while Carson HANCOCK tensioned the sutures and screwed in the anchors one at a time. All residual suture limbs were now clipped. We had good compression of the tendon along the entire footprint. Instruments now removed from the portal sites. All portal sites were approximated with nylon suture. Sterile dressings were applied followed by a shoulder immobilizer. Seymour HANCOCK assisted in this complex case. The patient was awakened, transferred to a bed, and taken to recovery in stable condition.
[2021-05-13 13:51] VITALS: TEMP 97.2
[2021-05-13 14:00] VITALS: RESP 16
[2021-05-13] MEDS ORDERED: HYDROcodone/APAP 10-325MG 1 EACH TAB ONE (14:52)
[2021-05-13 15:11] VITALS: BP 112/76; PULSE 78
[2021-05-13] MEDS ORDERED: HYDROcodone/APAP 10-325MG 1 EACH TAB PO ONE (15:13)
== END 2021-05-13 16:03 | disposition home or self-care (01) ==
LOC: OR 09:57
PROVIDERS: ATTEND Orthopaedic Surgery
DX: M19.012 Primary osteoarthritis, left shoulder (principal); I10 Essential (primary) hypertension; E78.5 Hyperlipidemia, unspecified
CPT/HCPCS: 29824; 29826; 29827; 29828; 64415; 76942; C1713 ×4; J2250; J1100; J0690; J2405; J2001; J3010; J2795; J2370; J0330; J2704

== ENCOUNTER → 2021-06-24 | Outpatient (CLI) | payer OTHER | END | disposition home or self-care (01) | LOC: LABWHC1 12:11 | PROVIDERS: ATTEND Family Medicine | DX: J06.9 Acute upper respiratory infection, unspecified (principal) | CPT/HCPCS: 87502; U0003; C9803; U0005 ==

== ENCOUNTER → 2021-07-14 | Outpatient (CLI) | payer OTHER ==
--- NOTE | 2021-07-14 18:32 | XR ---
EXAMINATION TYPE: XR foot complete LT DATE OF EXAM: 07/14/2021 CLINICAL HISTORY: pain TECHNIQUE: Frontal, lateral and oblique images of the left foot are obtained. COMPARISON: None. FINDINGS: Cortical irregularity involving the base of the fifth metatarsal may reflect a small chip o r avulsion fracture. No additional fractures seen. Postoperative changes about the ankle joint. IMPRESSION: Cortical irregularity involving the base of the fifth metatarsal may reflect a small chip or avulsion fracture.
== END | disposition home or self-care (01) ==
LOC: RADXRMAIN 15:57
PROVIDERS: ATTEND Nurse Practitioner Family
DX: R93.6 Abnormal findings on diagnostic imaging of limbs (principal)

== ENCOUNTER 2021-08-05 10:15 | Day surgery (SDC) | payer OTHER ==
[2021-08-03 10:41] VITALS: BMI 44.9
--- NOTE | 2021-08-04 14:00 | HP ---
HISTORY AND PHYSICAL HISTORY OF PRESENT ILLNESS: Alexia Borrego is a 51-year-old patient seen with symptomatic right carpal tunnel syndrome. We discussed options for treatment. She elected to proceed with decompression right median nerve. Consent obtained. PAST MEDICAL HISTORY: Hypertension. SURGICAL HISTORY: Total knee arthroplasty, bilateral ankle arthroplasty, hysterectomy, shoulder rotator cuff repair, gastric sleeve. DAILY MEDICATIONS: Amlodipine, Cymbalta, gabapentin, hydrocodone, lisinopril, metoprolol. ALLERGIES: None. SOCIAL HISTORY: She denies current tobacco use. PHYSICAL EVALUATION OF THE RIGHT HAND: She has a positive carpal compression, carpal Tinel's causing increased numbness, tingling throughout the median nerve distribution. There is some moderate thenar atrophy. She has some decreased sensation throughout the median nerve distribution. She has good perfusion distally. There is a good radial pulse present. RADIOGRAPHS: Radiographs revealed osteoarthritic changes. MRI revealed carpal tunnel syndrome. IMPRESSION: 1. Right carpal tunnel syndrome. 2. Hypertension. PLAN: Decompression, right median nerve. MMODL / IJN: [id number] /
[~2021-08-05 10:15] MED LIST changes: +BUPIVACAINE (PF) 0.25% 30 ML VIAL SQ ONE; -DEXAMETHASONE SOD PHOSPHATE 4 MG/ML 1 ML VIAL IV ONE; -HYDROmorphone 0.5 MG/0.5 ML SYRINGE IVP PRN; -LACTATED RINGERS 1,000 ML IV SCH; -LIDOCAINE 1% (10MG/ML) FOR IV START INTRADERMA PRN; -MIDAZOLAM 2 MG/2 ML VIAL IV PRN; -ONDANSETRON 4 MG/2 ML VIAL IVP ONE; -SCOPOLAMINE 1.5MG/72HR PATCH TRANSDERM ONE; -ceFAZolin 3 GM in SODIUM CHLORIDE 0.9% 100 ML IVPB PRN; -fentaNYL (PF) 50 MCG/ML 2 ML AMP IVP PRN
[2021-08-05 10:43] VITALS: TEMP 98.4
[2021-08-05] MEDS ORDERED: ONDANSETRON 4 MG/2 ML VIAL ONE (10:50)
[2021-08-05] MEDS ORDERED: ONDANSETRON 4 MG/2 ML VIAL IVP ONE (11:07)
[2021-08-05] MEDS ORDERED: LACTATED RINGERS 1,000 ML IV ONE (11:07)
[2021-08-05] MEDS ORDERED: KETAMINE 10 MG/ML 20 ML VIAL ONE (11:35)
[2021-08-05] MEDS ORDERED: MIDAZOLAM 2 MG/2 ML VIAL ONE (11:35)
[2021-08-05] MEDS ORDERED: PROPOFOL 10 MG/ML 20 ML VIAL IV ONE (11:35)
[2021-08-05] MEDS ORDERED: LIDOCAINE 1% INJ 10MG/ML (20 ML MDV) ONE (11:35)
[2021-08-05] MEDS ORDERED: fentaNYL (PF) 50 MCG/ML 2 ML AMP ONE (11:35)
--- NOTE | 2021-08-05 12:06 | P.OP ---
Date of Procedure: 08/05/21 Preoperative Diagnosis: Right carpal tunnel syndrome Postoperative Diagnosis: Right carpal tunnel syndrome Procedure(s) Performed: Decompression right median nerve Anesthesia: MAC, local Surgeon: Memo Pedraza Estimated Blood Loss (ml): 1 Pathology: none sent Condition: stable Disposition: PACU Indications for Procedure: 51-year-old patient seen with symptomatic right carpal syndrome. After having treatment options discussed she elected to proceed decompression right median nerve. Operative Findings: see description of procedure Description of Procedure: Patient was taken to the operative suite. She underwent IV sedation by the department of anesthesia. She received preoperative IV antibiotics. A well- padded tourniquet placed proximal right upper extremity. Right upper extremity was prepped and draped in the normal sterile orthopedic fashion. I infiltrated the proposed incision site with 10 mL quarter percent plain Marcaine. Once sufficient local analgesia was noted the extremity was elevated and tourniquet insufflated to 25. I made an incision beginning at the distal volar wrist crease extending distally approximately 3 cm in line with the fourth metacarpal sharply through skin. I dissected down through the palmar fascia to the transverse carpal ligament. I made a small incision in the transverse carpal ligament. I now released the transverse carpal ligament proximally and distally with blunt Metzenbaums. There was complete release of the ligament. There was good decompression of the nerve. There was good hemostasis. The wound was irrigated. Skin margins were proximal nylon suture. We applied sterile dressings. The tourniquet was released with immediate capillary refill of all digits noted. The patient was now awakened and transferred to recovery stable condition having tolerated the procedure well.
[2021-08-05 12:09] VITALS: RESP 16
[2021-08-05 12:52] VITALS: BP 119/76
[2021-08-05 13:10] VITALS: PULSE 60
== END 2021-08-05 13:34 | disposition home or self-care (01) ==
LOC: OR 10:15
PROVIDERS: ATTEND Orthopaedic Surgery
DX: G56.01 Carpal tunnel syndrome, right upper limb (principal); I10 Essential (primary) hypertension; Z98.84 Bariatric surgery status; Z96.659 Presence of unspecified artificial knee joint; Z96.662 Presence of left artificial ankle joint; Z96.661 Presence of right artificial ankle joint; Z90.710 Acquired absence of both cervix and uterus; Z98.890 Other specified postprocedural states; Z79.899 Other long term (current) drug therapy; Z79.891 Long term (current) use of opiate analgesic
CPT/HCPCS: 64721; J2250; J0690; J2405; J2001; J3010; J2704

== ENCOUNTER → 2021-08-27 | Outpatient (CLI) | payer OTHER ==
--- NOTE | 2021-08-27 16:13 | XR ---
EXAMINATION TYPE: XR wrist complete RT DATE OF EXAM: 08/27/2021 COMPARISON: NONE HISTORY: 51-year-old female M2 5.531, right wrist pain. TECHNIQUE: 4 views FINDINGS: There is vamsi widening of the scapholunate interval at 4.5 mm. There is some degenerative joint spac e narrowing and spurring at the distal radioulnar joint. 5 mm corticated bone fragment of the ulnar s tyloid process suggesting sequela of remote injury. There is a mild ulnar sided soft tissue swelling. Moderate degenerative change of the first CMC joint with a 2.5 mm loose body. There is abnormal narr owing of the radioscaphoid joint space on the navicular view. IMPRESSION: 1. Vamsi scapholunate ligament disruption. The navicular view shows abnormal narrowing of the radiosc aphoid joint space. Findings suggest early SLAC wrist. 2. Moderate OA at the basal joint of the thumb and mild to moderate at the distal radioulnar joint. 3. Corticated bone fragment at the ulnar styloid process suggesting sequela of remote injury.
== END | disposition home or self-care (01) ==
LOC: RADXRMAIN 14:21
PROVIDERS: ATTEND Family Medicine
DX: M18.11 Unilateral primary osteoarthritis of first carpometacarpal joint, right hand (principal); S63.8X1A Sprain of other part of right wrist and hand, initial encounter; X58.XXXA Exposure to other specified factors, initial encounter

== ENCOUNTER → 2021-09-15 | Outpatient (CLI) | payer OTHER ==
--- NOTE | 2021-09-16 02:00 | MR ---
EXAMINATION TYPE: MR shoulder LT wo con DATE OF EXAM: 09/15/2021 COMPARISON: None HISTORY: Left shoulder pain and limited movement since 2020, surgery 05-13-21 Multiplanar multiecho imaging of the left shoulder without contrast. FINDINGS: There is a moderate-sized shoulder joint effusion. Subscapularis tendon is intact. There is linear ar tifact in the humeral head consistent with previous surgery. There is large defect in the supraspinat us tendon with retraction. There is some spurring at the AC joint. There is no evidence of a fracture. There is some mild deformity in irregular contour of the anterior glenoid labrum. The biceps tendon is not well defined. There is probably at least partial tear of th e biceps tendon. IMPRESSION: Very large rotator cuff tear with extensive retraction of the supraspinatus tendon. Large shoulder will int effusion. Deformity of the anterior glenoid labrum consistent with labral tear. There is at least partial tear of the biceps tendon. No fracture seen.
== END | disposition home or self-care (01) ==
LOC: RADMRIMAIN 13:00
PROVIDERS: ATTEND Orthopaedic Surgery
DX: M75.112 Incomplete rotator cuff tear or rupture of left shoulder, not specified as traumatic (principal); M25.412 Effusion, left shoulder; M67.814 Other specified disorders of tendon, left shoulder

== ENCOUNTER → 2021-10-12 | Outpatient (CLI) | payer OTHER | END | disposition home or self-care (01) | LOC: LABWHC1 15:03 | PROVIDERS: ATTEND Nurse Practitioner Family | DX: I10 Essential (primary) hypertension (principal) | CPT/HCPCS: 36415; 93005 ==

== ENCOUNTER 2021-10-22 09:34 | Day surgery (SDC) | payer OTHER ==
[2021-10-21 12:14] VITALS: BMI 43.4
--- NOTE | 2021-10-21 13:50 | HP ---
HISTORY AND PHYSICAL DATE OF SURGERY: 10/22/2021 Alexia Borrego is a 51-year-old patient seen with progressive left shoulder pain consistent with rotator cuff tendon tear. We discussed options regarding treatment. She elected to proceed with arthroscopy. Consent was obtained. PAST MEDICAL HISTORY: Hypertension. PAST SURGICAL HISTORY: Total knee arthroplasty, revision total knee arthroplasty, ankle arthroscopy, hysterectomy, shoulder surgery, gastric sleeve. DAILY MEDICATIONS: Amlodipine, Cymbalta, gabapentin, lisinopril, metoprolol. ALLERGIES: NONE REPORTED. SOCIAL HISTORY: She denies current tobacco use. PHYSICAL EVALUATION OF THE LEFT SHOULDER: Flexion 10 degrees. Abduction is 10 degrees. External rotation zero degrees with pain and weakness. Tenderness along the anterolateral acromion and rotator cuff insertion. Impingement is positive at 60 degrees. Drop-arm sign is positive. Distal neurovascular exam is intact. Radiographs of the left shoulder revealed conversion to a flat anterior acromion. MRI left shoulder revealed a large recurrent rotator cuff tendon tear. IMPRESSION: 1. Left shoulder large rotator cuff tendon tear. 2. History of previous left shoulder arthroscopic rotator cuff repair. 3. Hypertension. 4. Hyperlipidemia. PLAN: Left shoulder arthroscopy with arthroscopic rotator cuff repair and debridement. MMODL / IJN: [id number] /
[~2021-10-22 09:34] MED LIST changes: -BUPIVACAINE (PF) 0.25% 30 ML VIAL SQ ONE; +DEXAMETHASONE SOD PHOSPHATE 4 MG/ML 1 ML VIAL IV ONE; +HYDROmorphone 0.5 MG/0.5 ML SYRINGE IVP PRN; +LACTATED RINGERS 1,000 ML IV SCH; +LIDOCAINE 1% (10MG/ML) FOR IV START INTRADERMA PRN; +METOCLOPRAMIDE 5 MG/ML 2 ML VIAL IVP PRN; +MIDAZOLAM 2 MG/2 ML VIAL IV PRN; +ONDANSETRON 4 MG/2 ML VIAL IVP ONE; +fentaNYL (PF) 50 MCG/ML 2 ML AMP IVP PRN
[2021-10-22] MEDS ORDERED: MIDAZOLAM 2 MG/2 ML VIAL IVP ONE (10:37)
[2021-10-22] MEDS ORDERED: fentaNYL (PF) 50 MCG/ML 2 ML AMP IVP ONE (10:37)
[2021-10-22] MEDS ORDERED: LIDOCAINE 1% INJ 10MG/ML (20 ML MDV) ONE (11:16)
[2021-10-22] MEDS ORDERED: ePHEDrine 50 MG/ML 1 ML VIAL ONE (11:16)
[2021-10-22] MEDS ORDERED: MIDAZOLAM 2 MG/2 ML VIAL ONE (11:16)
[2021-10-22] MEDS ORDERED: ROPIVACAINE 5 MG/ML 30 ML VIAL ONE (11:16)
[2021-10-22] MEDS ORDERED: PROPOFOL 10 MG/ML 20 ML VIAL IV ONE (11:16)
[2021-10-22] MEDS ORDERED: SUCCINYLCHOLINE CHLORIDE VIAL 200 MG/10 ML VIAL IV ONE (11:16)
[2021-10-22] MEDS ORDERED: fentaNYL (PF) 50 MCG/ML 2 ML AMP ONE (11:16)
--- NOTE | 2021-10-22 13:28 | P.ANPRN ---
Procedure Note - Anesthesia - Nerve Block Performed Right Interscalene Single Time Out Performed: Yes (1036) Date of Procedure: 10/22/21 Procedure Start Time: 10:37 Procedure Stop Time: 10:43 Location of Patient: PreOp Indication: Acute Post-Operative Pain, Requested by Surgeon Specifically requested for management of pain by DrAyesha: Memo Pedraza Sedation Type: Sedate with meaningful contact maintained Preparation: Sterile Prep Position: Supine Catheter: None Needle Types: Pajunk Needle Gauge: 21 Ultrasound used to visualize needle placement: Yes Ultrasound used to observe medication spread: Yes Injectate: 0.5% Ropivacaine (see comment for volume) (30cc) Blood Aspirated: No Pain Paresthesia on Injection Noted: No Resistance on Injection: Normal Image Stored and Saved: Yes Events: Uneventful and Well Tolerated
--- NOTE | 2021-10-22 13:28 | P.OP ---
Date of Procedure: 10/22/21 Preoperative Diagnosis: Left shoulder recurrent rotator cuff tear Postoperative Diagnosis: Left shoulder recurrent massive retracted rotator cuff tendon tear Procedure(s) Performed: Left shoulder arthroscopic revision rotator cuff repair Implants: 2Arthrex 4.75 swivel lock anchors 1Arthrex 5.5 swivel lock anchor Anesthesia: GETA, regional (Interscalene block) Surgeon: Memo Pedraza Electro Winning Operator #1: Seymour Hardwick Estimated Blood Loss (ml): 10 Pathology: none sent Condition: stable Disposition: PACU Indications for Procedure: 51-year-old patient seen with a recurrent large retracted rotator cuff tendon tear. She had previous undergone arthroscopic rotator cuff repair of a massive tear and fell down a few times postoperatively. She was noted to have a recurrent retracted large tear. We discussed options for treatment. She elected to proceed with arthroscopy. Consent was obtained. Operative Findings: See description of procedure Description of Procedure: Patient underwent an interscalene block by department of anesthesia. The patient was then taken to the operative suite. The patient underwent a general anesthetic by the department of anesthesia. The patient was placed into a lateral position and secured. There was appropriate padding of the bony prominence. Left shoulder was then prepped and draped in normal sterile orthopedic fashion. We placed the extremity in 10 pounds of longitudinal traction. A posterior incision was now made for a posterior working portal site. The trocar and cannula were inserted into the glenohumeral joint. Arthroscopy was initiated. Spinal needle was now inserted anteriorly, to ascertain the anterior working portal site. An incision was now made in that area, a trocar was inserted followed by a probe the labrum was stable. There were grade 1/2 chondromalacia changes about the glenohumeral joint. The biceps was absent. I could visualize a massive retracted rotator cuff tendon tear. Instruments re moved from glenohumeral joint. Utilizing the posterior working portal site, the trocar and cannula were inserted into the subacromial space. Arthroscopy initiated. I made an incision 2 fingerbreadths lateral to the acromion. I introduced my trocar followed by my ArthroCare ablator. I now began ablating thick subacromial bursal tissue, which exposed the undersurface of the anterior acromion. There was evidence of the previous decompression with adequate subacromial space. I turned my attention to the massive rotator cuff tendon tear. The measured approximately 4.5 cm and was retracted to level of glenoid. There was significant residual suture material diffusely noted. At this point I meticulously removed all the suture material. I could visualize a previous anchors and one of them appear loose distally. I removed that without difficulty. I tried to pull the tendon over the footprint and it was now mobile enough. There was some shredded areas were debrided out. I now began meticulously releasing the tendon proximally all the way around. I still could not mobilize over the footprint. I now utilized to converging suture centrally. I now pulled the tendon I could just get just to the edge of the footprint area. I decided to go ahead and try repair here. With the assistance of Carson HANCOCK I passed 6 everted mattress sutures through good bites of rotator cuff tendon starting anteriorly and working my posteriorly. I now centrally punch hole the footprint area for insertion of an anchor. We passed the 4 central limbs of suture through the eyelet of a 4.75 swivel lock anchor. I placed the anchor into the pre-punch hole. I held it in position while Carson HANCOCK tension all 4 suture limbs in the plate that anchor with good fixation noted. The tendon was just barely over the footprint. I now addressed posterior portion of the tear. I punched the hole in the footprint area therefore insertional anchor. All 4 limbs of suture were passed through the eyelet of a 5.5 Arthrex swivel lock anchor. I placed the eyelet into the pre-punch hole. I held it there while Carson HANCOCK tension all 4 suture limbs and deployed the anchor with good fixation noted. Residual suture limbs were clipped. I now turned my attention to the anterior portion of the tear. A partial footprint in the area of the footprint for insertion of anchor. I passed all 4 limbs of suture through the eyelet of a 4.75 swivel lock anchor. I placed that eyelet into the prepunched hole. I held that while Carson HANCOCK tension all 4 suture limbs and deployed the anchor with good fixation noted. All residual suture limbs were clipped. The repair was under quite a bit attention. The central portion which is barely over the footprint. Instruments now removed from the portal sites. All portal sites were approximated with nylon suture. Sterile dressings were applied followed by a shoulder immobilizer. Seymour HANCOCK assisted in this complex case. The patient was awakened, transferred to a bed, and taken to recovery in stable condition. The patient's prognosis is guarded given this recurrent massive retracted tear.
[2021-10-22 14:07] VITALS: TEMP 96.1
[2021-10-22 14:51] VITALS: BP 113/75; PULSE 70; RESP 20
== END 2021-10-22 15:38 | disposition home or self-care (01) ==
LOC: OR 09:34
PROVIDERS: ATTEND Orthopaedic Surgery
DX: M75.122 Complete rotator cuff tear or rupture of left shoulder, not specified as traumatic (principal); M94.212 Chondromalacia, left shoulder; I10 Essential (primary) hypertension; M79.7 Fibromyalgia; G43.909 Migraine, unspecified, not intractable, without status migrainosus; F41.9 Anxiety disorder, unspecified; F32.A Depression, unspecified; E78.5 Hyperlipidemia, unspecified; W19.XXXA Unspecified fall, initial encounter; Z96.659 Presence of unspecified artificial knee joint; Z90.710 Acquired absence of both cervix and uterus; Z98.84 Bariatric surgery status; Z79.899 Other long term (current) drug therapy
CPT/HCPCS: 64415; 76942; 29827; C1713 ×3; J2250; J0330; J1100; J0690; J2405; J2001; J3010; J2795; J2704

== ENCOUNTER 2021-11-04 17:01 | Emergency (ER) | payer OTHER ==
[2021-11-04 17:06] VITALS: BP 158/81; PULSE 69; RESP 18; TEMP 98
--- NOTE | 2021-11-04 17:38 | ED ---
General Adult HPI - General Chief complaint: Extremity Injury, Upper Stated complaint: rt wrist injury Time Seen by Provider: 11/04/21 17:10 Source: patient Mode of arrival: ambulatory Limitations: no limitations - History of Present Illness Initial comments: Patient is a 51-year-old female presenting with chief complaint of right wrist pain. Patient states that she tripped over a blanket in the hallway today and landed on her right side. Patient denies hitting her head or use of blood thinners. Patient admits to pain and swelling of the right wrist, she has full range of motion significant pain over the posterior lateral portion of the wrist. She denies any numbness, tingling, weakness, radiation of pain up the arm or down the fingers, cold extremity. No headache, neck pain or stiffness, vision or hearing changes, dizziness, nausea, vomiting, loss of consciousness, amnesia. - Related Data Home Medications Medication Instructions Recorded Confirmed Hydrocodone/Acetaminophen [[place] 1 tab PO TID PRN 04/04/15 10/22/21 10-325] Metoprolol Tartrate [Lopressor] 50 mg PO BID 04/04/15 10/22/21 amLODIPine [Norvasc] 10 mg PO HS 04/04/15 10/22/21 lisinopriL [Zestril] 40 mg PO HS 04/04/15 10/22/21 Gabapentin [Neurontin] 100 mg PO QAM 03/12/16 10/22/21 Gabapentin [Neurontin] 400 mg PO HS 07/21/16 10/22/21 DULoxetine HCL [Cymbalta] 60 mg PO BID 11/09/19 10/22/21 Fexofenadine HCl [Meaghan Allergy] 180 mg PO DAILY 11/09/19 10/22/21 bisacodyL [Dulcolax] 5 mg PO DAILY 11/09/19 10/22/21 Solifenacin Succinate [Vesicare] 5 mg PO HS 05/11/21 10/22/21 Fruit & Vegetable Supplement 1 tab PO DAILY 08/03/21 10/22/21 Previous Rx's Medication Instructions Recorded traMADol HCl [Ultram] 50 mg PO Q6H PRN #12 tab 08/05/21 Allergies Allergy/AdvReac Type Severity Reaction Status Date / Time No Known Allergies Allergy Verified 11/04/21 19:10 Review of Systems ROS Statement: Those systems with pertinent positive or pertinent negative responses have been documented in the HPI. ROS Other: All systems not noted in ROS Statement are negative. Past Medical History Past Medical History: Hypertension Additional Past Medical History / Comment(s): kidney stones, MIGRAINE HEADACHES, NEUROPATHY, History of Any Multi-Drug Resistant Organisms: None Reported Past Surgical History: Appendectomy, Bariatric Surgery, Cholecystectomy, Hysterectomy, Orthopedic Surgery, Tonsillectomy Additional Past Surgical History / Comment(s): left knee replacement, Right knee been replaced twice, LEFT ANKLE SURGERY, RIGHT HEEL SURGERY , RIGHT ROTATOR CUFF SURGERY, D&C, LAP BAND SURGERY, REMOVAL OF LAP BAND, GASTRIC SLEEVE, Past Anesthesia/Blood Transfusion Reactions: No Reported Reaction Past Psychological History: Anxiety, Depression Smoking Status: Never smoker Past Alcohol Use History: None Reported Past Drug Use History: None Reported - Past Family History Mother Family Medical History: Cancer Father Family Medical History: Cancer General Exam Limitations: no limitations General appearance: alert, in no apparent distress Head exam: Present: atraumatic, normocephalic, normal inspection Eye exam: Present: normal appearance, EOMI. Absent: scleral icterus Right Forearm Wrist exam: Present: full ROM, tenderness, swelling, tenderness over anatomical snuff box. Absent: ecchymosis, erythema Vascular: Absent: vascular compromise Neurological exam: Present: alert, oriented X3, CN II-XII intact Psychiatric exam: Present: normal affect, normal mood Skin exam: Present: warm, dry, intact, normal color. Absent: rash Course Vital Signs 11/04/21 17:03 Temperature 98 F Pulse Rate 69 Respiratory 18 Rate Blood Pressure 158/81 O2 Sat by Pulse 100 Oximetry Medical Decision Making - Medical Decision Making Patient is a 51-year-old female presenting with chief complaint of right wrist pain. Patient fell after tripping over an object in her hallway today landing on the right side. Patient denies head injury, use of blood thinners, loss of consciousness, nausea, vomiting, neck pain or stiffness. On examination there is tenderness over the anatomical snuffbox. Patient has full range of motion and is neurovascularly intact. X-ray shows no acute fracture or dislocation. Due to tenderness over the snuffbox I am treating with thumb spica splint for potential scaphoid fracture. Educated the patient on the findings and scaphoid fractures. I instructed the patient to follow-up with orthopedics in one to 2 days. Follow-up with primary care this week. Take Motrin and Tylenol as needed for pain control, icing and elevation may also help control pain. I answered all questions and educated on return parameters. Report back to ER if any worsening symptoms. Patient conveyed verbal understanding and agreed to the plan. I discussed this case with my attending Dr. Nugent. - Radiology Data Radiology results: report reviewed Wrist x-ray: No acute wrist fracture or dislocation appreciated. Again demonstrated is widening of the scapholunate interval. Again demonstrated is sequel of remote trauma of the ulnar styloid. Again demonstrated arthritic changes at the distal radial ulnar joint, first carpometacarpal joint distal interphalangeal joints. Mild soft tissue swelling wrist joint greater along the ulnar side. Disposition Clinical Impression: Scaphoid fracture Narrative: suspected, xray negative Disposition: HOME SELF-CARE Condition: Good Instructions (If sedation given, give patient instructions): Wrist Injury (ED), Scaphoid Fracture (ED) Additional Instructions: Follow-up with orthopedics in one to 2 days. Follow-up with primary care this week. Report back to ER with any worsening symptoms, including but not limited to discoloration of the fingers, increasing sensation of tightness, loss of sensation. Is patient prescribed a controlled substance at d/c from ED?: No Referrals: Jasiel Meléndez MD [Primary Care Provider] - 1-2 days Johnna Feliz DO [Doctor of Osteopathic Medicine] - 1-2 days Time of Disposition: 19:01
--- NOTE | 2021-11-04 17:46 | XR ---
EXAMINATION TYPE: XR wrist complete RT DATE OF EXAM: 11/04/2021 COMPARISON: 08/27/2021 HISTORY: 51 years Female. STUDY INDICATION GIVEN: injury and pain . TECHNIQUE: 4 radiographs of the wrist IMPRESSION: No acute wrist fracture or dislocation appreciated. Again demonstrated is widening of the scapholunate interval. Again demonstrated is sequel of remote trauma of the ulnar styloid. Again demonstrated are arthritic changes at the distal radial ulnar joint, first carpometacarpal join t distal interphalangeal joints. Mild soft tissue swelling wrist joint greater along the ulnar side.
== END 2021-11-04 19:24 | disposition home or self-care (01) ==
LOC: EC 17:01
DX: S62.011A Displaced fracture of distal pole of navicular [scaphoid] bone of right wrist, initial encounter for closed fracture (principal); I10 Essential (primary) hypertension; F41.9 Anxiety disorder, unspecified; F32.A Depression, unspecified; Z87.442 Personal history of urinary calculi; Z90.49 Acquired absence of other specified parts of digestive tract; Z98.84 Bariatric surgery status; Z90.710 Acquired absence of both cervix and uterus; Z96.652 Presence of left artificial knee joint; W01.0XXA Fall on same level from slipping, tripping and stumbling without subsequent striking against object, initial encounter
CPT/HCPCS: 29125; 99283

== ENCOUNTER → 2021-12-29 | Outpatient (CLI) | payer OTHER ==
--- NOTE | 2021-12-30 02:22 | MR ---
EXAMINATION TYPE: MR shoulder RT wo con DATE OF EXAM: 12/29/2021 COMPARISON: None HISTORY: Right shoulder pain and limited range of motion for 2 months due to trip and fall. Multiplanar multiecho imaging of the right shoulder with no contrast. There is a moderate shoulder joint effusion. There is obliteration of the subacromial joint space. Th ere is retraction of the supraspinatus tendon. There is moderate hypertrophic osteoarthritis of the g lenohumeral joint. There is deformity of the anterior glenoid labrum. The subscapularis tendon shows some thinning. The biceps tendon is intact. There is fluid in the subacromial subdeltoid bursa. There is hypertrophic spurring at the AC joint with fluid. No fracture seen. There is some atrophy of the supraspinatus and infraspinatus muscles. IMPRESSION: Large rotator cuff tear with retraction of the supraspinatus tendon. There is obliteration of the sub acromial joint space. Superior subluxation of the humeral head. Moderate hypertrophic osteoarthritis. Infraspinatus muscle atrophy. Moderate shoulder joint effusion and subdeltoid effusion. No fracture seen.
== END | disposition home or self-care (01) ==
LOC: RADMRIMAIN 16:04
PROVIDERS: ATTEND Family Medicine
DX: S46.011A Strain of muscle(s) and tendon(s) of the rotator cuff of right shoulder, initial encounter (principal); M19.011 Primary osteoarthritis, right shoulder; M62.50 Muscle wasting and atrophy, not elsewhere classified, unspecified site; W01.0XXA Fall on same level from slipping, tripping and stumbling without subsequent striking against object, initial encounter

== ENCOUNTER → 2021-12-30 | Outpatient (CLI) | payer OTHER ==
--- NOTE | 2021-12-30 12:37 | XR ---
EXAMINATION TYPE: XR foot complete RT DATE OF EXAM: 12/30/2021 CLINICAL HISTORY: Medial side pain. TECHNIQUE: Frontal, lateral, and oblique images of the right foot are obtained. COMPARISON: Right foot X-ray June 27, 2019 FINDINGS: There is no acute fracture/dislocation evident in the right foot. Flexion in the toes is r edemonstrated. Metallic anchors in the posterior calcaneus redemonstrated. Persistent moderate bony f ormation possible fracture spur inferior calcaneus at plantar fascia attachment and moderate bony for mation posterior superior calcaneus near distal Achilles insertion. No new bony destruction. Overlyin g soft tissue is unremarkable. IMPRESSION: As above.
== END | disposition home or self-care (01) ==
LOC: RADXRMAIN 12:02
PROVIDERS: ATTEND Nurse Practitioner Family
DX: M21.271 Flexion deformity, right ankle and toes (principal)

== ENCOUNTER → 2022-03-03 | Outpatient (CLI) | payer OTHER ==
[2022-03-03 22:45] LABS: Basophils # (A) 0.06 X 10*3/uL (0.00-0.10); Eosinophils # (A) 0.43 X 10*3/uL (0.04-0.35); Eosinophils % (A) 6.9 %; HGB 12.3 g/dL (12.0-15.0); Immature Grans, Automated 0.2 %; Lymphocytes # (A) 1.85 X 10*3/uL (0.90-5.00); Lymphocytes % (A) 29.6 %; MCH 28.3 pg (27.0-32.0); MCHC 31.5 g/dL (32.0-37.0); MCV 89.7 fL (80.0-97.0); Mean Platelet Volume 10.7 fL (9.5-12.2); Monocytes # (A) 0.45 X 10*3/uL (0.20-1.00); Monocytes % (A) 7.2 %; NRBC Per 100 WBC 0 /100 WBCS (0.0-0.0); Neutrophils # (A) 3.45 X 10*3/uL (1.80-7.70); Neutrophils % (A) 55.1 %; Platelet Count 372 X 10*3/uL (140-440); RBC 4.35 X 10*6/uL (4.10-5.20); RDW 14.6 % (11.5-14.5); WBC 6.25 X 10*3/uL (4.50-10.00)
[2022-03-04 02:12] LABS: Anion Gap 10.4 mmol/L (10.00-18.00); Carbon Dioxide 25.3 mmol/L (20.0-27.5)
== END | disposition home or self-care (01) ==
LOC: LABPAT 15:44
PROVIDERS: ATTEND Family Medicine
DX: Z01.812 Encounter for preprocedural laboratory examination (principal); M75.41 Impingement syndrome of right shoulder
CPT/HCPCS: 80051; 85025

== ENCOUNTER 2022-03-25 05:34 | Day surgery (SDC) | payer OTHER ==
[2022-03-24 08:31] VITALS: BMI 44.2
--- NOTE | 2022-03-25 03:26 | HP ---
HISTORY AND PHYSICAL DATE OF SURGERY: 03/25/2022. HISTORY OF PRESENT ILLNESS: Alexia Borrego is a 51-year-old patient seen with progressive right shoulder pain. We discussed options regarding treatment. She elected to proceed with right shoulder arthroscopy. Consent regarding the procedure was obtained. PAST MEDICAL HISTORY: Hypertension. PAST SURGICAL HISTORY: Total knee arthroplasty bilaterally, left ankle arthroplasty, right shoulder rotator cuff repair, gastric sleeve, left shoulder arthroscopy. MEDICATIONS: Daily medications are, 1. Cymbalta. 2. Hydrocodone. 3. Lisinopril. 4. Metoprolol. ALLERGIES: None. SOCIAL HISTORY: She denies tobacco use. PHYSICAL EVALUATION OF THE RIGHT SHOULDER: Flexion is 80 degrees. Abduction is 80 degrees. External rotation is 0 degrees with weakness. There is tenderness along the anterior lateral acromion and rotator cuff insertion. Impingement is positive at 80 degrees. Anterior apprehension sign is positive. Drop-arm sign is positive. Distal neurovascular exam is intact. RADIOGRAPHS: Right shoulder radiographs revealed some superior migration of the humeral head and evidence for acromioclavicular joint osteoarthritis. MRI of right shoulder revealed a large retracted rotator cuff tendon tear. IMPRESSION: 1. Right shoulder impingement with rotator cuff tear. 2. Right shoulder acromioclavicular joint osteoarthritis. 3. Hypertension. 4. Chronic opioid use. PLAN: Right shoulder arthroscopy with subacromial decompression, possible arthroscopic rotator cuff repair, Jose Luis procedure and debridement. MMODL / IJN: [id number] /
[2022-03-25] MEDS ORDERED: ONDANSETRON 4 MG/2 ML VIAL IVP ONE (05:51)
[2022-03-25] MEDS ORDERED: LACTATED RINGERS 1,000 ML IV SCH (05:51)
[2022-03-25] MEDS ORDERED: HYDROmorphone 0.5 MG/0.5 ML SYRINGE IVP PRN (05:51)
[2022-03-25] MEDS ORDERED: MIDAZOLAM 2 MG/2 ML VIAL IV PRN (05:51)
[2022-03-25] MEDS ORDERED: DEXAMETHASONE SOD PHOSPHATE 4 MG/ML 1 ML VIAL IV ONE (05:51)
[2022-03-25] MEDS ORDERED: LIDOCAINE 1% (10MG/ML) FOR IV START INTRADERMA PRN (05:51)
[2022-03-25 06:15] VITALS: TEMP 97
[2022-03-25] MEDS ORDERED: MIDAZOLAM 2 MG/2 ML VIAL IVP ONE (06:55)
[2022-03-25] MEDS ORDERED: LIDOCAINE 2% INJ 20 MG/ML (2 ML VIAL) ONE (07:02)
[2022-03-25] MEDS ORDERED: PROPOFOL 10 MG/ML 20 ML VIAL IV ONE (07:02)
[2022-03-25] MEDS ORDERED: ROPIVACAINE 5 MG/ML 30 ML VIAL ONE (07:02)
[2022-03-25] MEDS ORDERED: DEXAMETHASONE SOD PHOSPHATE 4 MG/ML 1 ML VIAL ONE (07:02)
[2022-03-25] MEDS ORDERED: SUCCINYLCHOLINE CHLORIDE 200 MG/10 ML VIAL IV ONE (07:02)
[2022-03-25] MEDS ORDERED: MIDAZOLAM 2 MG/2 ML VIAL ONE (07:02)
[2022-03-25] MEDS ORDERED: HYDROcodone/APAP 10-325MG 1 EACH TAB PO ONE (09:28)
[2022-03-25 09:33] VITALS: BP 120/75; PULSE 68; RESP 15
--- NOTE | 2022-03-25 09:44 | OP ---
OPERATIVE REPORT PREOPERATIVE DIAGNOSIS: Right shoulder impingement. POSTOPERATIVE DIAGNOSES: 1. Right shoulder massive retracted rotator cuff tendon tear. 2. Right shoulder impingement. 3. Right shoulder partial long head biceps tendon tear. 4. Right shoulder superficial labral tears. PROCEDURES PERFORMED: 1. Right shoulder arthroscopic rotator cuff repair. 2. Right shoulder arthroscopic subacromial decompression. 3. Right shoulder arthroscopic biceps tenotomy. 4. Right shoulder arthroscopic debridement of labral tear. IMPLANTS: 1-4.75 Arthrex SwiveLock anchor. ANESTHESIA: General with a preoperative interscalene block for postoperative pain management. ESTIMATED BLOOD LOSS: 11 mL. PATHOLOGY: None sent. CONDITION: Stable. INDICATIONS FOR PROCEDURE: A 51-year-old patient was seen with progressive right shoulder pain. After treatment options were discussed with her, she elected to proceed with right shoulder arthroscopy. Consent was obtained. DESCRIPTION OF PROCEDURE: The patient was taken to the operative suite after having interscalene block performed by the Department of Anesthesia for postoperative pain management. She received preoperative IV antibiotics. She underwent general anesthetic by the Department of Anesthesia. She was placed in a lateral recumbent position with appropriately padding the bony prominence. She was secured. The right upper extremity was placed in 10 pounds of longitudinal traction. The right shoulder was prepped and draped in normal sterile orthopedic fashion. A posterior working portal site was made. A trocar and camera were inserted into the glenohumeral joint. Arthroscopy was now initiated. I used a spinal needle to assign the anterior working portal site. I made an incision of 12 by trocar and probe. There were superficial tearing of the superior and anterior labrum and partial tearing of the long head biceps tendon. There was an obvious large retracted rotator cuff tendon tear I could see from the glenohumeral side. There were advanced chondromalacia changes involving the superior glenoid and the superior humeral head, more moderate inferiorly. I performed an arthroscopic biceps tenotomy. I debrided out the superficial labral tear. The residual labrum was probed and was found to be stable. Instruments were now removed from the glenohumeral joint. Utilizing the posterior working portal site, the trocar and camera were introduced into the subacromial space. Arthroscopy was now initiated there. I made an incision along the lateral acromion and inserted a trocar followed by my ArthroCare ablator. I ablated some thick subacromial bursal tissue exposing the undersurface of the anterior acromion, which was very prominent and appeared to be there was evidence for some previous surgery as this patient did have previous open repair with some residual suture material. I performed a decompression. I removed some osteophytes off the inferior aspect of the clavicle distally. In the AC joint, we noted moderate arthritis, not enough to warrant a Jose Luis procedure. I now turned my attention to the rotator cuff tendon. There was a massive retracted tear. Subscapularis was torn and was not repairable. I performed a significant release anterior, middle, and posterior. Still, I could not pull that tendon over the footprint centrally. I could pull the tendon over the footprint involving the infraspinatus tendon. The supraspinatus tendon was retracted and nonrepairable. I decided at this point to try and repair infraspinatus to see if we could give her some coverage posteriorly. I debrided the footprint with a motorized bur. With the assistance of KARISSA Hodges, I passed 2 vertical mattress sutures with good bites of rotator cuff tendon/infraspinatus tendon. I now punched a hole in the footprint area for insertion of an anchor. All 4 limbs of the suture were passed through the eyelet of a 4.75 Arthrex SwiveLock anchor. I placed the eyelet into the pre-punched hole. I held it in position while KARISSA Hodges, tensioned all 4 suture limbs and deployed the anchor with good fixation noted. Residual suture limbs were clipped. We had good repair of that infraspinatus tendon. Again, subscapularis and supraspinatus were not repairable. At this point, instruments were removed from the subacromial space. All 3 portal sites were approximated with nylon suture. Sterile dressings were applied. The patient was placed into a sling, awakened, transferred to a bed, and taken to Recovery in stable condition. Her prognosis is obviously guarded given the massive tear and unrepairable supraspinatus and subscapularis tendons. KARISSA Hodges, assisted with this complex procedure. MMODL / IJN: [id number] /
--- NOTE | 2022-03-25 19:28 | P.ANPRN ---
Procedure Note - Anesthesia - Nerve Block Performed Right Interscalene Single Time Out Performed: Yes Date of Procedure: 03/25/22 Procedure Start Time: 06:53 Procedure Stop Time: 06:58 Location of Patient: PreOp Indication: Acute Post-Operative Pain, Requested by Surgeon Sedation Type: Sedate with meaningful contact maintained Preparation: Sterile Prep Position: Supine Needle Types: Pajunk Needle Gauge: 21 Ultrasound used to visualize needle placement: Yes Ultrasound used to observe medication spread: Yes Blood Aspirated: No Pain Paresthesia on Injection Noted: No Resistance on Injection: Normal Image Stored and Saved: Yes Events: Uneventful and Well Tolerated (ropi .5% 20cc plus dexamethasone 4mg)
== END 2022-03-25 10:30 | disposition home or self-care (01) ==
LOC: OR 05:34
PROVIDERS: ATTEND Orthopaedic Surgery
DX: M75.101 Unspecified rotator cuff tear or rupture of right shoulder, not specified as traumatic (principal); M75.41 Impingement syndrome of right shoulder; S46.121A Laceration of muscle, fascia and tendon of long head of biceps, right arm, initial encounter; S43.431A Superior glenoid labrum lesion of right shoulder, initial encounter; M94.211 Chondromalacia, right shoulder; M25.711 Osteophyte, right shoulder; M19.011 Primary osteoarthritis, right shoulder; G89.18 Other acute postprocedural pain; I10 Essential (primary) hypertension; K21.9 Gastro-esophageal reflux disease without esophagitis; Z79.899 Other long term (current) drug therapy; R94.31 Abnormal electrocardiogram [ECG] [EKG]; Z80.0 Family history of malignant neoplasm of digestive organs; X58.XXXA Exposure to other specified factors, initial encounter
CPT/HCPCS: 64415; 76942; 29827; 29826; 29807; C1713; J2250; J0330; J1100; J0690; J2405; J2795; J2704; J2001

== ENCOUNTER → 2022-05-31 | Outpatient (CLI) | payer OTHER | END | disposition home or self-care (01) | LOC: LABPAT 14:24 | PROVIDERS: ATTEND Anesthesiology | DX: Z01.812 Encounter for preprocedural laboratory examination (principal) | CPT/HCPCS: 93005 ==

== ENCOUNTER 2022-06-02 09:05 | Day surgery (SDC) | payer OTHER ==
[2022-05-31 10:14] VITALS: BMI 43.9
--- NOTE | 2022-06-01 19:29 | P.HPOR ---
History of Present Illness H&P Date: 06/01/22 Chief Complaint: Right thumb CMC arthritis Subjective: This is a 51 year old female that presents today for follow up evaluation regarding a right hand and base of the thumb arthritis. She recently underwent shoulder surgery and feels she is strong enough to now rehab the thumb. She is still having pain with grasp, pinch and movement at the base of the thumb. SHe denies any paresthesias. Physical Examination: RUE: AIN/PIN/Radial/Ulnar/Median motor intact. Radial/Ulnar/Median SILT. 2+/4 Radial/Ulnar pulses palpated. 5/5 APB, 5/5 FDI. Negative Finkelsteins, positive CMC grind, negative Durkan's compression. Wrist F/E 70/60. No pain with DRUJ shuck. Imaging: X-Rays of the right wrist taken at last visit demonstrate severe thumb CMC arthritis. Chronic S-L widening with DISI deformity, present on 2018 and 2020 comparison views. Old healed distal radius fracture with 15 degrees of residual dorsal angulation and chronic healed ulnar styloid fracture. Arthritic changes at DRUJ with no evidence of dorsal or volar subluxation at DRUJ joint. No acute fracture/dislocation visible. 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 4.) Right DRUJ arthritis Plan: Diagnosis and treatment options were discussed with the patient. She would like to proceed with right thumb basal joint arthroplasty after having failed conservative treatment for her right thumb CMC arthritis. Risks and benefits of surgery including bleeding, infection, damage to surrounding tissue, need for further surgery, residual numbness were discussed and the patient wished to go forward with surgery. -Sabino Nguyen DO Orthopedic Hand/Upper Extremity Surgeon Past Medical History Past Medical History: Hypertension Additional Past Medical History / Comment(s): kidney stones, MIGRAINE HEADACHES, NEUROPATHY, History of Any Multi-Drug Resistant Organisms: None Reported Past Surgical History: Appendectomy, Bariatric Surgery, Cholecystectomy, Hysterectomy, Joint Replacement, Orthopedic Surgery, Tonsillectomy Additional Past Surgical History / Comment(s): left knee replacement, Right knee been replaced twice, LEFT ANKLE SURGERY, RIGHT HEEL SURGERY , RIGHT ROTATOR CUFF SURGERY X2, D&C, LAP BAND SURGERY, REMOVAL OF LAP BAND, GASTRIC SLEEVE, LT SHOULDER SX X2, Past Anesthesia/Blood Transfusion Reactions: No Reported Reaction Smoking Status: Never smoker - Past Family History Mother Family Medical History: Cancer Additional Family Medical History / Comment(s): LIVER CANCER. Father Family Medical History: Cancer Additional Family Medical History / Comment(s): COLON CANCER. Medications and Allergies Home Medications Medication Instructions Recorded Confirmed Type Hydrocodone/Acetaminophen [[place] 1 tab PO QID PRN 04/04/15 05/31/22 History 10-325] Metoprolol Tartrate [Lopressor] 50 mg PO BID 04/04/15 05/31/22 History amLODIPine [Norvasc] 10 mg PO HS 04/04/15 05/31/22 History lisinopriL [Zestril] 40 mg PO HS 04/04/15 05/31/22 History Gabapentin [Neurontin] 100 mg PO DAILY 03/12/16 05/31/22 History DULoxetine HCL [Cymbalta] 60 mg PO BID 11/09/19 05/31/22 History Solifenacin Succinate [Vesicare] 10 mg PO HS 05/11/21 05/31/22 History Naproxen 500 mg PO BID PRN 11/04/21 05/31/22 History Omeprazole 20 mg PO DAILY 03/24/22 05/31/22 History Gabapentin [Neurontin] 400 mg PO HS 05/31/22 05/31/22 History Allergies Allergy/AdvReac Type Severity Reaction Status Date / Time No Known Allergies Allergy Verified 05/31/22 10:03 Physical Examination Osteopathic Statement: *. No significant issues noted on an osteopathic structural exam other than those noted in the History and Physical/Consult.
[~2022-06-02 09:05] MED LIST changes: -METOCLOPRAMIDE 5 MG/ML 2 ML VIAL IVP PRN; -fentaNYL (PF) 50 MCG/ML 2 ML AMP IVP PRN
[2022-06-02] MEDS ORDERED: METOPROLOL TARTRATE 50 MG TAB PO STA (09:44)
[2022-06-02] MEDS ORDERED: MIDAZOLAM 2 MG/2 ML VIAL IVP ONE (10:05)
[2022-06-02] MEDS ORDERED: ROPIVACAINE 5 MG/ML 30 ML VIAL ONE (10:26)
[2022-06-02] MEDS ORDERED: fentaNYL (PF) 50 MCG/ML 2 ML AMP ONE (10:26)
[2022-06-02] MEDS ORDERED: SUCCINYLCHOLINE CHLORIDE 200 MG/10 ML VIAL IV ONE (10:26)
[2022-06-02] MEDS ORDERED: PROPOFOL 10 MG/ML 20 ML VIAL IV ONE (10:26)
[2022-06-02] MEDS ORDERED: LIDOCAINE 2% INJ 20 MG/ML (2 ML VIAL) ONE (10:26)
[2022-06-02] MEDS ORDERED: DEXAMETHASONE SOD PHOSPHATE 4 MG/ML 1 ML VIAL ONE (10:26)
[2022-06-02 11:41] VITALS: TEMP 96.8
[2022-06-02 11:48] VITALS: RESP 16
[2022-06-02 12:35] VITALS: BP 140/65; PULSE 70
--- NOTE | 2022-06-02 22:02 | P.OP ---
Date of Procedure: 06/02/22 Preoperative Diagnosis: Right thumb CMC arthritis Postoperative Diagnosis: Right thumb CMC arthritis Procedure(s) Performed: Right thumb basilar joint arthroplasty Implants: Arthrex 3.5 Swivel Lock suture Hitchcock x2 Anesthesia: BEE regional Surgeon: Sabino Nguyen Waste Oil Pumper #1: Gonzalo Gabriel Estimated Blood Loss (ml): 0 Pathology: none sent Condition: stable Disposition: PACU Description of Procedure: This is a 51 year old female who presents today for a right thumb CMC basal joint arthroplasty after having failed conservative treatment for severe thumb CMC arthritis. Risks and benefits of surgery were discussed with the patient including bleeding, damage to surrounding tissue, infection, need for further surgery as well as risks of anesthesia including pulmonary embolism and even and the patient wished to proceed with surgical intervention. The patients was seen in the pre-operative area by myself. Consent and H&P were completed and updated. The correct extremity was marked in the pre-operative area by myself and all other questions were answered. Patient received a upper extremity nerve block by the department of anesthesia. She then was brought to the operating room by the department of anesthesia. They remained on the portable stretcher and a rolling hand table was brought to the side of the operative extremity. The patient was then drifted off to sleep by the department of anesthesia. A nonsterile tourniquet was then applied to the operative extremity and the right upper extremity was then prepped and draped in normal sterile fashion. Pre-operative time out was performed indicating the correct patient, procedure and laterality. All in the room agreed. Pre-operative antibiotics were given prior to skin incision. The operative extremity was the exsanguinated with an esmarch bandage and the tourniquet was inflated to 250mmHg. Longitudinal incision was made over the left thumb CMC joint with a 15 blade scalpel. Blunt dissection was taken down to subcutaneous tissues with littler scissors taking care to preserve the branches of the superficial radial nerve. Dorsal radial artery was identified proximally in the incision and protected throughout the procedure. Scalpel was then made to incise the thumb CMC joint creating full thickness flaps off of the proximal metacarpal base and trapezium, this plane was further developed with a periosteal elevator. Elevator was then utilized to identify the thumb CMC joint and scaphotrapezial joint. McGlamory elevator was then used to excise the trapezium whole. Guidewire was then introduced down to the laser line at the base of the first metacarpal through the same incision and was over drilled. Another guidewire was then inserted at the radial base of the first metacarpal near the Insertion of APL and was then over drilled with normal drill guide. A 3.5mm Arthrex SwiveLock anchor was then inserted into the base of the first metacarpal. While holding the thumb in slight traction and full adduction, another 3.5mm Arthrex SwiveLock anchor was inserted into the base of the second metacarpal and the two strands of fibertape were centered across the first metacarpal base to create a sling around the base suspending the thumb metacarpal, good elizabeth purchase was appreciated. The thumb was successfully suspended and full ROM was achieved passively. Suture ends were cut and skin was closed with several interrupted 4-0 Monocryl sutures followed by a running 4-0 Monocryl stitch. Sterile dressing consisting of mastisol and steri strips followed by 4x4s cast padding, and a thumb spica plaster splint was applied. Tourniquet was let down and the hand had brisk cap refill and normal perfusion immediately. The patient was then woken by the department of anesthesia and transferred to PACU in stable condition. Gonzalo HANCOCK was present for the case and assisted in major portions of procedure and protection of vital neurovascular structures. Sabino Nguyen D.O. Orthopedic Hand/Upper Extremity Surgeon
--- NOTE | 2022-06-03 18:53 | P.ANPRN ---
Procedure Note - Anesthesia - Nerve Block Performed Right Supraclavicular Single Time Out Performed: Yes Date of Procedure: 06/02/22 Procedure Start Time: 10:04 Procedure Stop Time: 10:12 Location of Patient: PreOp Indication: Acute Post-Operative Pain, Requested by Surgeon Sedation Type: Sedate with meaningful contact maintained Preparation: Sterile Prep Position: Supine Needle Types: Pajunk Needle Gauge: 21 Ultrasound used to visualize needle placement: Yes Ultrasound used to observe medication spread: Yes Blood Aspirated: No Pain Paresthesia on Injection Noted: No Resistance on Injection: Normal Image Stored and Saved: Yes Events: Uneventful and Well Tolerated (ropi .5% 20cc plus dexamethasone 4mg)
== END 2022-06-02 13:35 | disposition home or self-care (01) ==
LOC: OR 09:05
PROVIDERS: ATTEND Orthopaedic Surgery Hand Surgery
DX: M18.11 Unilateral primary osteoarthritis of first carpometacarpal joint, right hand (principal); G89.18 Other acute postprocedural pain; I10 Essential (primary) hypertension; K21.9 Gastro-esophageal reflux disease without esophagitis; Z90.49 Acquired absence of other specified parts of digestive tract; Z90.710 Acquired absence of both cervix and uterus; Z87.81 Personal history of (healed) traumatic fracture; Z90.89 Acquired absence of other organs; Z96.652 Presence of left artificial knee joint; Z80.0 Family history of malignant neoplasm of digestive organs; Z79.899 Other long term (current) drug therapy
CPT/HCPCS: 64415; 76942; 25447; C1713; J2250; J0330; J1100; J0690; J2405; J3010; J2795; J2704; J2001

== ENCOUNTER → 2022-12-03 | Outpatient (CLI) | payer OTHER ==
[2022-12-04 02:22] LABS: % Iron Saturation 32.47 (12.00-45.00); Ferritin 30.1 ng/mL (10.0-291.0)
== END | disposition home or self-care (01) ==
LOC: LABWHC1 14:28
PROVIDERS: ATTEND Family Medicine
DX: R53.83 Other fatigue (principal)
CPT/HCPCS: 36415; 82728; 83540; 83550

== ENCOUNTER → 2023-01-05 | Outpatient (CLI) | payer OTHER ==
--- NOTE | 2023-01-06 09:16 | MM ---
Reason for Exam: Screening (asymptomatic). Last mammogram was performed 2 year(s) and 8 month(s) ago. Patient History: Menarche at age 15. First Full-Term at age 22. Left ovary removed at age 30. Right ovary removed at age 30. Hysterectomy at age 30. Postmenopausal. Estrogen, starting at age 30 for 16 years, 7 months. Benign Excisional Biopsy on the left side. Risk Values: Shonda 5 year model risk: 1.1%. NCI Lifetime model risk: 8.2%. Prior Study Comparison: 10/27/2016 Bilateral Screening Mammogram, [facility]. 03/29/2019 Bilateral Screening Mammogram, [facility]. 05/12/2020 Bilateral Screening Mammogram, [facility]. Tissue Density: There are scattered fibroglandular densities. Findings: Analyzed By CAD. There is no suspicious group of microcalcifications or new suspicious mass in either breast. Overall Assessment: Benign, BI-RAD 2 Management: Screening Mammogram of both breasts in 1 year. . Patient should continue monthly self-breast exams. A clinical breast exam by your physician is recommended on an annual basis. This exam should not preclude additional follow-up of suspicious palpable abnormalities. Note on Shonda scores and lifetime risk: 1. A Shonda score greater than 3% is considered moderate risk. If this is the case, consider specialist referral to assess eligibility for a risk reducing agent. 2. If overall lifetime risk for the development of breast cancer is 20% or higher, the patient may qualify for future screening with alternating mammogram and breast MRI. Electronically signed and approved by: Keny Rao M.D. Radiologis
== END | disposition home or self-care (01) ==
LOC: RADMAMWWP 14:44
PROVIDERS: ATTEND Family Medicine
DX: Z12.31 Encounter for screening mammogram for malignant neoplasm of breast (principal); Z78.0 Asymptomatic menopausal state
CPT/HCPCS: 77063; 77067

== ENCOUNTER → 2023-01-11 | Outpatient (CLI) | payer OTHER ==
[2023-01-11 20:31] LABS: ALT 14 U/L (8-44); AST 14 U/L (13-35); Albumin 3.8 d/dL (3.8-4.9); Albumin/Globulin Ratio 1.52 Ratio (1.60-3.17); Alkaline Phosphatase 86 U/L (41-126); BUN/Creat Ratio 21.57 Ratio (12.00-20.00); Blood Urea Nitrogen 15.1 mg/dL (9.0-27.0); Calcium 9.2 mg/dL (8.7-10.3); Carbon Dioxide 27.2 mmol/L (21.6-31.8); Chloride 105 mmol/L (96-109); Chol/HDL Ratio 3.98 Ratio; Ferritin 30.7 ng/mL (10.0-291.0); Globulin 2.5 d/dL (1.6-3.3); Glucose 99 mg/dL (70-110); Iron 30 UG/DL (50-170); LDL Cholesterol,Calculated 145.1 mg/dL (0.0-131.0); Potassium 4.1 mmol/L (3.5-5.5); Sodium 145 mmol/L (135-145); T4, Free (Free Thyroxine) 0.92 ng/dL (0.80-1.80); Total Bilirubin 0.2 mg/dL (0.3-1.2); Total Protein 6.3 d/dL (6.2-8.2)
[2023-01-11 20:48] LABS: Basophils # (A) 0.06 X 10*3/uL (0.00-0.10); Basophils % (A) 0.7 %; Eosinophils # (A) 0.39 X 10*3/uL (0.04-0.35); Eosinophils % (A) 4.8 %; HCT 40.6 % (37.2-46.3); Lymphocytes # (A) 2.82 X 10*3/uL (0.90-5.00); Lymphocytes % (A) 34.5 %; MCH 25.4 pg (27.0-32.0); MCHC 29.6 d/dL (32.0-37.0); Mean Platelet Volume 9.9 FL (9.5-12.2); Monocytes # (A) 0.62 X 10*3/uL (0.20-1.00); Monocytes % (A) 7.6 %; NRBC Per 100 WBC 0 X 10*3/uL (0.00-0.01); Neutrophils # (A) 4.27 X 10*3/uL (1.80-7.70); Neutrophils % (A) 52.2 %; Platelet Count 415 X 10*3/uL (140-440); RBC 4.72 X 10*6/uL (4.10-5.20); RDW 19.5 % (11.5-14.5); WBC 8.18 X 10*3/uL (4.50-10.00)
== END | disposition home or self-care (01) ==
LOC: LABWHC1 15:30
PROVIDERS: ATTEND Family Medicine
DX: I10 Essential (primary) hypertension (principal); G45.9 Transient cerebral ischemic attack, unspecified; R53.83 Other fatigue
CPT/HCPCS: 36415; 80053; 80061; 82306; 82728; 83036; 83540; 84439; 84443; 85025; 86800

== ENCOUNTER → 2023-02-09 | Outpatient (CLI) | payer OTHER ==
--- NOTE | 2023-02-10 08:35 | US ---
EXAMINATION TYPE: US carotid duplex BILAT DATE OF EXAM: 02/09/2023 COMPARISON: NONE CLINICAL INDICATION: Female, 52 years old with history of G45.9, I10; HTN controlled with meds. Dizz iness. TECHNIQUE: Carotid duplex ultrasound examination. Indirect Doppler criteria was utilized. FINDINGS: EXAM MEASUREMENTS: RIGHT: Peak Systolic Velocity (PSV) cm/sec ----- Right CCA: 73.2 ----- Right ICA: 77.9 ----- Right ECA: 98.2 ICA/CCA ratio: 1.1 RIGHT: End Diastole cm/sec ----- Right CCA: 16.0 ----- Right ICA: 25.2 ----- Right ECA: 12.8 LEFT: Peak Systolic Velocity (PSV) cm/sec ----- Left CCA: 72.8 ----- Left ICA: 97.8 ----- Left ECA: 93.0 ICA/CCA ratio: 1.3 LEFT: End Diastole cm/sec ----- Left CCA: 16.2 ----- Left ICA: 31.8 ----- Left ECA: 0.0 VERTEBRALS (direction of flow): Right Vertebral: Antegrade Left Vertebral: Antegrade Rhythm: Normal PRIMARY CARE PROVIDER NOTES: No significant velocity elevations. Plaque in right bulb. IMPRESSION: Less than 50% stenosis of the bilateral carotid bifurcations. Criteria for Assigning % of Stenosis / Diameter reduction (Estimation based on the indirect measurements of the internal carotid artery velocities (ICA PSV). 1. Normal (no stenosis)=ICA PSV < 125 cm/s: ratio < 2.0: ICA EDV<40 cm/s. 2. Less than 50% stenosis=ICA PSV < 125 cm/s: ratio < 2.0: ICA EDV<40 cm/s. 3. 50 to 69% stenosis=ICA PSV of 125 to 230 cm/s: ration 2.0 ? 4.0: ICA EDV 40-100 cm/s. 4. Greater than 70% stenosis to near occlusion= ICA PSV > 230 cm/s: ratio > 4.0: ICA EDV > 100 cm/s. 5. Near occlusion= ICA PSV velocities may be low or undetectable: variable ratio and ICA EDV. 6. Total occlusion=unable to detect flow.
--- NOTE | 2023-02-10 18:00 | CA ---
Transthoracic Echo Report Name: Alexia Borrego Age: 52 Gender: F : 1970 Exam Date: 02/09/2023 15:09 Exam Location: [facility] Ht (in): 64 Wt (lb): 276 Ordering Physician: Jasiel Meléndez MD Attending/Referring Phys: [id number], Medhat Stenotype Operator Marie Tilley TYRON Procedure CPT: Indications: G45.9, I10 Cardiac Hx: Technical Quality: Fair Contrast 1: Total Dose (mL): Contrast 2: Total Dose (mL): MEASUREMENTS (Male / Female) Normal Values 2D ECHO LV Diastolic Diameter PLAX 4.3 cm 4.2 - 5.9 / 3.9 - 5.3 cm LV Systolic Diameter PLAX 2.8 cm IVS Diastolic Thickness 1.3 cm 0.6 - 1.0 / 0.6 - 0.9 cm LVPW Diastolic Thickness 1.3 cm 0.6 - 1.0 / 0.6 - 0.9 cm LV Relative Wall Thickness 0.6 RV Internal Dim ED PLAX 3.8 cm LA Volume 54.4 cm??? 18 - 58 / 22 - 52 cm??? M-MODE Aortic Root Diameter MM 2.8 cm LA Systolic Diameter MM 4.2 cm LA Ao Ratio MM 1.5 AV Cusp Separation MM 2.0 cm DOPPLER AV Peak Velocity 158.3 cm/s AV Peak Gradient 10.0 mmHg AV Mean Velocity 106.6 cm/s AV Mean Gradient 5.1 mmHg AV Velocity Time Integral 28.8 cm AI Peak Velocity 418.8 cm/s AI Peak Gradient 70.2 mmHg AI Pressure Half Time 529.9 ms LVOT Peak Velocity 95.5 cm/s LVOT Peak Gradient 3.6 mmHg LVOT Velocity Time Integral 18.8 cm MV Area PHT 3.6 cm??? Mitral E Point Velocity 73.1 cm/s Mitral A Point Velocity 92.8 cm/s Mitral E to A Ratio 0.8 MV Deceleration Time 211.2 ms MV E' Velocity 9.3 cm/s Mitral E to MV E' Ratio 7.9 TR Peak Velocity 231.8 cm/s TR Peak Gradient 21.5 mmHg Right Ventricular Systolic Press 25.8 mmHg FINDINGS Left Ventricle Moderately increased left ventricular wall thickness. Normal left ventricular systolic function with no obvious regional wall motion abnormalities. Left ventricular ejection fraction is estimated at 55-60 %. Right Ventricle Mild right ventricular dilatation. Right ventricular systolic pressure within normal limits. Right Atrium Normal right atrial size. Left Atrium Mildly increased left atrial volume. Mildly increased left atrial area. Mitral Valve Structurally normal mitral valve. No mitral stenosis, regurgitation or prolapse. Aortic Valve Trileaflet aortic valve. No aortic stenosis. mild aortic regurgitation. Tricuspid Valve Structurally normal tricuspid valve. Mild tricuspid regurgitation. Pulmonic Valve Structurally normal pulmonic valve. Pericardium No pericardial effusion. Aorta Normal size aortic root and proximal ascending aorta. CONCLUSIONS 1. Normal left ventricular systolic function 2. Tricuspid aortic valve with mild aortic regurgitation 3. Mild tricuspid regurgitation with normal right ventricular systolic pressure Previewed by: Dr. Akli Coppola MD (Electronically Signed) Final Date: 10 February 2023 17:59
== END | disposition home or self-care (01) ==
LOC: RADECHMAIN 15:01
PROVIDERS: ATTEND Family Medicine
DX: I65.23 Occlusion and stenosis of bilateral carotid arteries (principal); I08.2 Rheumatic disorders of both aortic and tricuspid valves; I10 Essential (primary) hypertension
CPT/HCPCS: 93306; 93880

== ENCOUNTER → 2023-02-24 | Outpatient (CLI) | payer OTHER | END | disposition home or self-care (01) | LOC: LABWHC1 12:52 | PROVIDERS: ATTEND Orthopaedic Surgery | DX: M25.812 Other specified joint disorders, left shoulder (principal) | CPT/HCPCS: 87070 ==

== ENCOUNTER → 2023-02-25 | Outpatient (CLI) | payer OTHER ==
--- NOTE | 2023-02-28 09:17 | CT ---
EXAMINATION TYPE: CT brain w con DATE OF EXAM: 02/28/2023 COMPARISON: none HISTORY: ABNORMAL GAIT AND MOBILITY CT DLP: 1047.10 mGycm Automated exposure control for dose reduction was used. CONTRAST: CT scan of the head is performed with IV Contrast, patient injected with 100 mL of Isovue 300. FINDINGS: There is no abnormal enhancing mass or midline shift identified. The ventricles and sulci are within normal limits in size. The globes are intact and the visualized sinuses are clear. IMPRESSION: Negative contrast enhanced head CT exam.
== END | disposition home or self-care (01) ==
LOC: RADCTMAIN 09:36
PROVIDERS: ATTEND Family Medicine
DX: R26.9 Unspecified abnormalities of gait and mobility (principal)
CPT/HCPCS: 70460; Q9967

== ENCOUNTER → 2023-05-04 | Outpatient (CLI) | payer OTHER ==
--- NOTE | 2023-05-04 15:42 | XR ---
EXAMINATION TYPE: XR Hip Bilateral and AP pelvis DATE OF EXAM: 05/04/2023 COMPARISON: NONE HISTORY: Pain TECHNIQUE: AP view the pelvis and bilateral 2 view hip series. There is a severe degenerative change lower lumbar spine. SI joints demonstrate mild arthropathy. The re is a mild bilateral hip arthropathy. Ossifications along the greater trochanter can be associated with trochanteric bursitis greater on the left. There is a small spur involving the right greater trochanter. IMPRESSION: 1. Findings are compatible with mild bilateral hip arthropathy. 2. Severe degenerative change lower lumbar spine. 3. Hypertrophic spurring of the greater trochanter bilaterally correlate for trochanteric bursitis.
[2023-05-04 20:39] LABS: Basophils # (A) 0.06 X 10*3/uL (0.00-0.10); Basophils % (A) 0.8 %; Eosinophils # (A) 0.22 X 10*3/uL (0.04-0.35); Eosinophils % (A) 2.8 %; HCT 41.2 % (37.2-46.3); HGB 13.1 d/dL (12.0-15.0); Lymphocytes % (A) 23.8 %; MCHC 31.8 d/dL (32.0-37.0); MCV 91.2 FL (80.0-97.0); Mean Platelet Volume 10.5 FL (9.5-12.2); Monocytes # (A) 0.51 X 10*3/uL (0.20-1.00); Monocytes % (A) 6.4 %; NRBC Per 100 WBC 0 X 10*3/uL (0.00-0.01); Neutrophils # (A) 5.25 X 10*3/uL (1.80-7.70); Neutrophils % (A) 65.4 %; Platelet Count 374 X 10*3/uL (140-440); RBC 4.52 X 10*6/uL (4.10-5.20); RDW 14.5 % (11.5-14.5)
[2023-05-04 20:50] LABS: Ferritin 49.5 ng/mL (10.0-291.0); Iron 84 UG/DL (50-170); Rheumatoid Factor, Qnt <15 IU/mL (0-15); Total Iron Binding Capacity 370 UG/DL (228-460)
[2023-05-04 20:58] LABS: Erythrocyte Sedimentation Rate 26 mm/Hr (0-30)
== END | disposition home or self-care (01) ==
LOC: LABWHC1 14:38
PROVIDERS: ATTEND Family Medicine
DX: M47.816 Spondylosis without myelopathy or radiculopathy, lumbar region (principal); D50.9 Iron deficiency anemia, unspecified; M19.90 Unspecified osteoarthritis, unspecified site; E55.9 Vitamin D deficiency, unspecified; M16.9 Osteoarthritis of hip, unspecified
CPT/HCPCS: 36415; 73521; 82306; 82728; 83540; 83550; 85025; 85652; 86038; 86140; 86431

== ENCOUNTER → 2023-05-05 | Outpatient (CLI) | payer OTHER ==
--- NOTE | 2023-05-18 14:10 | NM ---
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 Immedia te images and 4 hours post injection images acquired. FINDINGS: Triple phase bone scan: There is abnormal uptake surrounding bilateral photopenic defects involving t he knees and shoulders compatible with replacement surgery. There is asymmetry in the degree of uptak e with a hyperintensity noted surrounding the left shoulder prostheses. Mild to moderate intensity uptake involving the superior vertebral column including the thoracic and lumbar spines. Given the intensity of uptake favor degenerative changes. Abnormal uptake involving the bilateral feet greater on the left likely either post arthritic or erin te trauma. Nuclear medicine bone marrow scan: 9.9 mCi of sulfur colloid was administered. Images were obtained at approximate 60 minutes postinject ion. Marrow distribution appears to be symmetric with regard to the upper extremities bilaterally. Tagged WBC nuclear medicine exam Approximately 20.5 mCi of labeled WBC Ceretec was administered. Imaging was obtained 3 hours post inj ection. There is symmetric uptake bilaterally with regard to the bilateral shoulder prostheses and murillo rrounding osseous structures. IMPRESSION: 1. There is asymmetric intensity uptake surrounding the left shoulder prostheses with no correspondin g marrow displacement or increased uptake on tagged WBC study. Findings may be postsurgical but loose kaitlynn should also be in the differential diagnosis.
== END | disposition home or self-care (01) ==
LOC: RADNMMAIN 07:33
PROVIDERS: ATTEND Orthopaedic Surgery
DX: Z47.1 Aftercare following joint replacement surgery (principal); Z96.612 Presence of left artificial shoulder joint
CPT/HCPCS: 78315; A9503

== ENCOUNTER → 2023-05-09 | Outpatient (CLI) | payer OTHER | END | disposition home or self-care (01) | LOC: RADNMMAIN 09:48 | PROVIDERS: ATTEND Orthopaedic Surgery | DX: Z53.9 Procedure and treatment not carried out, unspecified reason (principal) | CPT/HCPCS: 78300; A9569 ==

== ENCOUNTER → 2023-05-13 | Outpatient (CLI) | payer OTHER ==
--- NOTE | 2023-05-20 12:49 | NM ---
EXAMINATION TYPE: NM bone 3 phase DATE OF EXAM: 05/09/2023 COMPARISON: NONE CLINICAL INDICATION: Female, 52 years old with history of Z96.612 PRESENCE OF LEFT ARTIFICIAL SHOULDER JOINT; Triple phase bone scintigraphy was performed following the injection of 24.4 mCi Tc 99m MDP. Immediate images and 4 hours post injection images acquired. FINDINGS: Triple phase bone scan: There is abnormal uptake surrounding bilateral photopenic defects involving the knees and shoulders compatible with replacement surgery. There is asymmetry in the degree of uptake with a hyperintensity noted surrounding the left shoulder prostheses. Mild to moderate intensity uptake involving the superior vertebral column including the thoracic and lumbar spines. Given the intensity of uptake favor degenerative changes. Abnormal uptake involving the bilateral feet greater on the left likely either post arthritic or remote trauma. Nuclear medicine bone marrow scan: 9.9 mCi of sulfur colloid was administered. Images were obtained at approximate 60 minutes postinjection. Marrow distribution appears to be symmetric with regard to the upper extremities bilaterally. Tagged WBC nuclear medicine exam Approximately 20.5 mCi of labeled WBC Ceretec was administered. Imaging was obtained 3 hours post injection. There is symmetric uptake bilaterally with regard to the bilateral shoulder prostheses and surrounding osseous structures. IMPRESSION: 1. There is asymmetric intensity uptake surrounding the left shoulder prostheses with no corresponding marrow displacement or increased uptake on tagged WBC study. Findings may be postsurgical but loosening should also be in the differential diagnosis. MTDD
== END | disposition home or self-care (01) ==
LOC: RADNMMAIN 09:55
PROVIDERS: ATTEND Orthopaedic Surgery
DX: Z96.612 Presence of left artificial shoulder joint (principal)
CPT/HCPCS: 78102; A9541

== ENCOUNTER → 2023-05-31 | Outpatient (CLI) | payer OTHER ==
[2023-05-31 20:26] LABS: Total Protein,CSF 44 mg/dL (12-60)
[2023-05-31 22:09] LABS: Appearance,CSF Clear; CSF Tube Number 4; Nucleated Cells, CSF 1 u/L (0-5); Red Blood Cell,CSF 0 u/L (0-10)
== END | disposition home or self-care (01) ==
LOC: LABWHC1 07:52
PROVIDERS: ATTEND Psychiatry & Neurology Neurology
DX: R90.82 White matter disease, unspecified (principal)
CPT/HCPCS: 36415; 82040; 82042; 82784; 83916; 84157; 88108; 89050

== ENCOUNTER → 2023-08-25 | Outpatient (CLI) | payer OTHER ==
[2023-08-25 16:40] LABS: Basophils # (A) 0.05 X 10*3/uL (0.00-0.10); Basophils % (A) 0.8 %; Eosinophils # (A) 0.55 X 10*3/uL (0.04-0.35); Eosinophils % (A) 8.5 %; HCT 39.3 % (37.2-46.3); HGB 12.3 g/dL (12.0-15.0); Lymphocytes % (A) 26.2 %; MCH 29.5 pg (27.0-32.0); MCHC 31.3 g/dL (32.0-37.0); MCV 94.2 FL (80.0-97.0); Mean Platelet Volume 10.1 FL (9.5-12.2); Monocytes # (A) 0.37 X 10*3/uL (0.20-1.00); Monocytes % (A) 5.7 %; NRBC Per 100 WBC 0 X 10*3/uL (0.00-0.01); Neutrophils # (A) 3.78 X 10*3/uL (1.80-7.70); Neutrophils % (A) 58.3 %; Platelet Count 386 X 10*3/uL (140-440); RBC 4.17 X 10*6/uL (4.10-5.20); RDW 14.3 % (11.5-14.5); WBC 6.48 X 10*3/uL (4.50-10.00)
[2023-08-25 17:14] LABS: ALT 20 U/L (8-44); AST 20 U/L (13-35); Albumin 3.9 g/dL (3.8-4.9); Albumin/Globulin Ratio 1.77 Ratio (1.60-3.17); Alkaline Phosphatase 82 U/L (41-126); Blood Urea Nitrogen 13.2 mg/dL (9.0-27.0); Calcium 9.4 mg/dL (8.7-10.3); Carbon Dioxide 29.6 mmol/L (21.6-31.8); Chloride 106 mmol/L (96-109); Chol/HDL Ratio 4.12 Ratio; Globulin 2.2 g/dL (1.6-3.3); Glucose 112 mg/dL (70-110); LDL Cholesterol,Calculated 138.9 mg/dL (0.0-131.0); Potassium 4.2 mmol/L (3.5-5.5); Sodium 147 mmol/L (135-145); Total Bilirubin 0.4 mg/dL (0.3-1.2); Total Protein 6.1 g/dL (6.2-8.2)
== END | disposition home or self-care (01) ==
LOC: LABWHC1 09:50
PROVIDERS: ATTEND Family Medicine
DX: E78.5 Hyperlipidemia, unspecified (principal)
CPT/HCPCS: 36415; 80053; 80061; 83036; 84443; 85025

== ENCOUNTER → 2023-10-24 | Outpatient (CLI) | payer OTHER ==
[2023-10-24 20:35] LABS: Basophils # (A) 0.06 X 10*3/uL (0.00-0.10); Basophils % (A) 0.9 %; Eosinophils # (A) 0.39 X 10*3/uL (0.04-0.35); Eosinophils % (A) 5.9 %; HCT 40.3 % (37.2-46.3); HGB 12.3 g/dL (12.0-15.0); Lymphocytes # (A) 2.02 X 10*3/uL (0.90-5.00); Lymphocytes % (A) 30.4 %; MCH 28.4 pg (27.0-32.0); MCHC 30.5 g/dL (32.0-37.0); MCV 93.1 FL (80.0-97.0); Mean Platelet Volume 10.7 FL (9.5-12.2); Monocytes # (A) 0.58 X 10*3/uL (0.20-1.00); Monocytes % (A) 8.7 %; NRBC Per 100 WBC 0 X 10*3/uL (0.00-0.01); Neutrophils # (A) 3.59 X 10*3/uL (1.80-7.70); Neutrophils % (A) 53.9 %; Platelet Count 380 X 10*3/uL (140-440); RBC 4.33 X 10*6/uL (4.10-5.20); RDW 14.2 % (11.5-14.5); WBC 6.65 X 10*3/uL (4.50-10.00)
[2023-10-24 21:18] LABS: BUN/Creat Ratio 20.78 Ratio (12.00-20.00); Blood Urea Nitrogen 18.7 mg/dL (9.0-27.0); Chloride 107 mmol/L (96-109); Glucose 113 mg/dL (70-110); Potassium 4.2 mmol/L (3.5-5.5); Sodium 146 mmol/L (135-145)
[2023-10-24 21:19] LABS: Calcium 9.4 mg/dL (8.7-10.3)
== END | disposition home or self-care (01) ==
LOC: LABPAT 16:12
PROVIDERS: ATTEND Orthopaedic Surgery Hand Surgery
DX: Z01.812 Encounter for preprocedural laboratory examination (principal); M65.4 Radial styloid tenosynovitis [de Quervain]
CPT/HCPCS: 80048; 85025

== ENCOUNTER → 2023-10-24 | Outpatient (CLI) | payer OTHER ==
--- NOTE | 2023-11-03 19:21 | MR ---
EXAMINATION TYPE: MR foot LT wo con DATE OF EXAM: 10/24/2023 COMPARISON: Old radiograph 08/11/2021 HISTORY: 53-year-old female M25.572, Left ankle pain and swelling x few weeks, Hx of artificial ankle 7-8 yrs ago TECHNIQUE: Multiplanar, multisequence images of the left foot were obtained without IV contrast. FINDINGS: There is extensive metal hardware artifact relating to the tibiotalar joint prosthesis. There is minimal thickening of the Achilles tendon suggesting mild tendinosis without tear. Tiny plan dietary aid spur. The origin of the plantar fascia is intact. Generalized subcutaneous soft tissue swelling is demonstrated. There is mild degenerative change of the first MTP joint with a small joint effusion. No acute or hea ling fracture or suspicious bone marrow placement allowing for the extensive metal artifact obscuring the ankle and portions of the hindfoot. Some focal osteoarthritic change is noted at the navicular medial cuneiform joint. Hammertoes. Lisfranc ligament is visualized and intact. IMPRESSION: 1. Extensive metal artifact relating to the patient's tibiotalar joint prosthesis obscuring the ankle and portions of the hindfoot, significantly limiting the evaluation. 2. Generalized subcutaneous soft tissue swelling throughout. 3. Hammertoes, mild first MTP joint OA with small joint effusion, and moderate osteoarthritic change at the navicular-medial cuneiform joint.
== END | disposition home or self-care (01) ==
LOC: RADMRIMAIN 16:30
PROVIDERS: ATTEND Family Medicine
DX: M19.072 Primary osteoarthritis, left ankle and foot (principal); M25.475 Effusion, left foot

== ENCOUNTER 2023-11-16 06:53 | Day surgery (SDC) | payer OTHER ==
--- NOTE | 2023-11-15 09:54 | P.HPOR ---
History of Present Illness H&P Date: 11/15/23 Subjective: This is a 53 year old female that presents today for follow up evaluation regarding right wrist/base of the thumb pain. She is 1.5 years out from a right thumb CMC arthroplasty. She has pain at the radial portion of the wrist that has been worsening over the past several months. She denies any new injury or inciting event. She underwent a steroid injection 1 month prior and experienced minimal relief. Physical Examination: RUE: AIN/PIN/Radial/Ulnar/Median motor intact. Radial/Ulnar/Median SILT. 2+/4 Radial/Ulnar pulses palpated. 5/5 APB, 5/5 FDI. Positive Finkelsteins, negative CMC grind, negative Durkan's compression. Thumb stable to axial load. Impression: 1.) Right DeQuervains tenosynovitis 2.) Right SLAC wrist arthritis 3.) Right DRUJ arthritis 4.) Right distal radius malunion Plan: Diagnosis and treatment options were discussed with the patient. She did not respond to her steroid injection and remains symptomatic at the first dorsal compartment. She would like to proceed with a right first dorsal compartment release. Risks and benefits of surgery including bleeding, infection, damage to surrounding tissue, need for further surgery, residual numbness were discussed and the patient wished to go forward with surgery. The patient was agreeable with this plan. CC: Jasiel Meléndez M.D. -Sabino Nguyen DO Orthopedic Hand/Upper Extremity Surgeon Past Medical History Past Medical History: Hypertension Additional Past Medical History / Comment(s): kidney stones, MIGRAINE HEADACHES, NEUROPATHY History of Any Multi-Drug Resistant Organisms: None Reported Past Surgical History: Appendectomy, Bariatric Surgery, Cholecystectomy, Hyste rectomy, Joint Replacement, Orthopedic Surgery, Tonsillectomy Additional Past Surgical History / Comment(s): sinus surgery,left knee replacement, Right knee been replaced twice, LEFT ANKLE SURGERY, RIGHT HEEL SURGERY , RIGHT ROTATOR CUFF SURGERY X2, D&C, LAP BAND SURGERY, REMOVAL OF LAP BAND, GASTRIC SLEEVE, LT SHOULDER SX X2, bilat. shoulder arthroplasty (2022) Past Anesthesia/Blood Transfusion Reactions: No Reported Reaction Additional Past Anesthesia/Blood Transfusion Reaction / Comment(s): "woke up with right knee replacement" - states general not spinal Smoking Status: Never smoker - Past Family History Mother Family Medical History: Cancer Additional Family Medical History / Comment(s): LIVER CANCER. Father Family Medical History: Cancer Additional Family Medical History / Comment(s): COLON CANCER. Medications and Allergies Home Medications Medication Instructions Recorded Confirmed Type Hydrocodone/Acetaminophen [Santa Claus 1 tab PO QID PRN 04/04/15 11/14/23 History 10-325] Metoprolol Tartrate [Lopressor] 50 mg PO BID 04/04/15 11/14/23 History amLODIPine [Norvasc] 10 mg PO HS 04/04/15 11/14/23 History lisinopriL [Zestril] 40 mg PO HS 04/04/15 11/14/23 History Gabapentin [Neurontin] 100 mg PO QAM 03/12/16 11/14/23 History DULoxetine HCL [Cymbalta] 60 mg PO BID 11/09/19 11/14/23 History Solifenacin Succinate [Vesicare] 10 mg PO HS 05/11/21 11/14/23 History Naproxen 500 mg PO BID PRN 11/04/21 11/14/23 History Omeprazole 20 mg PO QAM 03/24/22 11/14/23 History Gabapentin [Neurontin] 400 mg PO HS 05/31/22 11/14/23 History Cetirizine HCl [Zyrtec] 10 mg PO DAILY 11/14/23 11/14/23 History Multivitamins, Thera [Multivitamin 1 tab PO DAILY 11/14/23 11/14/23 History (formulary)] bisacodyL [Dulcolax] 5 mg PO DAILY 11/14/23 11/14/23 History Allergies Allergy/AdvReac Type Severity Reaction Status Date / Time No Known Allergies Allergy Verified 11/14/23 12:33 Physical Examination Osteopathic Statement: *. No significant issues noted on an osteopathic structural exam other than those noted in the History and Physical/Consult.
[~2023-11-16 06:53] MED LIST changes: -DEXAMETHASONE SOD PHOSPHATE 4 MG/ML 1 ML VIAL IV ONE; -HYDROmorphone 0.5 MG/0.5 ML SYRINGE IVP PRN; -MIDAZOLAM 2 MG/2 ML VIAL IV PRN; -ONDANSETRON 4 MG/2 ML VIAL IVP ONE; +ceFAZolin 3 GM in SODIUM CHLORIDE 0.9% 100 ML IVPB PRN
[2023-11-16] MEDS ORDERED: HYDROmorphone 0.5 MG/0.5 ML SYRINGE IVP PRN (07:00)
[2023-11-16] MEDS: LACTATED RINGERS 1,000 ML IV ONE (07:15)
[2023-11-16] MEDS: ONDANSETRON 4 MG/2 ML VIAL IVP ONE (07:16)
[2023-11-16] MEDS ORDERED: LIDOCAINE 1% INJ 10MG/ML (20 ML MDV) ONE (08:04)
[2023-11-16] MEDS ORDERED: fentaNYL (PF) 50 MCG/ML 2 ML AMP ONE (08:04)
[2023-11-16] MEDS ORDERED: MIDAZOLAM 2 MG/2 ML VIAL ONE (08:04)
[2023-11-16] MEDS ORDERED: PROPOFOL 10 MG/ML 20 ML VIAL IV ONE (08:04)
[2023-11-16 08:08] VITALS: TEMP 96.9
[2023-11-16] MEDS: LIDOCAINE 1% INJ 10MG/ML (20 ML MDV) SQ ONE (08:11)
[2023-11-16] MEDS: BUPIVACAINE (PF) 0.5% 30 ML VIAL SQ ONE (08:11)
--- NOTE | 2023-11-16 08:39 | P.OP ---
Date of Procedure: 11/16/23 Preoperative Diagnosis: Right DeQuervains tenosynovitis Postoperative Diagnosis: Right DeQuervains tenosynovitis Procedure(s) Performed: Right first dorsal compartment release Anesthesia: MAC Surgeon: Sabino Nguyen Lens Coating Technician #1: Gonzalo Gabriel Estimated Blood Loss (ml): 0 Pathology: none sent Condition: stable Disposition: PACU Description of Procedure: This is a 53 year old female who presents today for a right first dorsal compartment release after having failed conservative treatment. Risks and benefits of surgery were discussed with the patient including bleeding, damage to surrounding tissue, infection, need for further surgery as well as risks of anesthesia including pulmonary embolism and even and the patient wished to proceed with surgical intervention. The patients was seen in the pre-operative area by myself. Consent and H&P were completed and updated. The correct extremity was marked in the pre-operative area by myself and all other questions were answered. Operative Narrative: The patient was brought to the operating room by the department of anesthesia. They remained on the portable stretcher and a rolling hand table was brought to the side of the operative extremity. The patient was then drifted off to sleep by the department of anesthesia. A nonsterile tourniquet was then applied to the operative extremity and the right upper extremity was then prepped and draped in normal sterile fashion. Pre-operative time out was performed indicating the correct patient, procedure and laterality. All in the room agreed. MAC anesthesia was utilized and a 50:50 mixture of 1% Lidocaine and 0.5% bupivacaine was injected into the subcutaneous tissues of the radial wrist skin, 10ccs total. Pre-operative antibiotics were given prior to skin incision. The operative extremity was the exsanguinated with an esmarch bandage and the tourniquet was inflated to 250mmHg. 15 blade scalpel was used to make a horizontal skin incision centered over the first dorsal compartment of the right wrist. Blunt dissection was taken down to the proximal edge of the first dorsal compartment while taking care to identify and protect branches of the superficial radial sensory nerve. The first dorsal compartment was released in its entirety from proximal to distal. APL and EPB tendons were identified and both tendons were identified in a single compartment with no accessory compartment visualized. Skin closure was performed with 4-0 Monocryl suture and steri strips. Sterile soft dressing was applied consisting of 4x4's cast padding and an jodee wrap. The patient was then woken by the department of anesthesia and transferred to PACU in stable condition. Gonzalo HANCOCK was present to assist in retraction and protection of nerves and manipulation of the hand. Sabino Nguyen D.O. Orthopedic Hand/Upper Extremity Surgeon
[2023-11-16 08:59] VITALS: RESP 18
[2023-11-16 09:51] VITALS: BP 147/79; PULSE 63
== END 2023-11-16 09:48 | disposition home or self-care (01) ==
LOC: OR 06:53
PROVIDERS: ATTEND Orthopaedic Surgery Hand Surgery
DX: M65.4 Radial styloid tenosynovitis [de Quervain] (principal); M19.011 Primary osteoarthritis, right shoulder; I10 Essential (primary) hypertension; F41.9 Anxiety disorder, unspecified; F32.A Depression, unspecified; G43.909 Migraine, unspecified, not intractable, without status migrainosus; Z79.899 Other long term (current) drug therapy
CPT/HCPCS: 25000; J2250; J2405; J2001; J3010; J2704; J0665

== ENCOUNTER 2023-12-29 21:39 | Emergency (ER) | payer OTHER ==
[2023-12-29 21:44] VITALS: TEMP 98.4
--- NOTE | 2023-12-29 22:00 | ED ---
Chest Pain HPI - General Source: patient Mode of arrival: ambulatory Limitations: no limitations <Vielka Knox - Last Filed: 12/29/23 21:59> <Win Schaefer - Last Filed: 01/22/24 13:04> - General Chief Complaint: Chest Pain Stated Complaint: Chest Pain/Tightness Time Seen by Provider: 12/29/23 22:00 - History of Present Illness Initial Comments: Quick note: 53-year-old female presenting with chief complaint of abdominal and chest pain. Patient is having sharp epigastric pain on and off for over a week. She admits to nausea and shortness of breath. Pain seems to be worse with exertion. She also admits to right-sided flank pain, history of kidney stones and believes that she currently has a stone (Vielka Knox) - Related Data Home Medications Medication Instructions Recorded Confirmed Hydrocodone/Acetaminophen [[place] 1 tab PO QID PRN 04/04/15 11/16/23 10-325] Metoprolol Tartrate [Lopressor] 50 mg PO BID 04/04/15 11/16/23 amLODIPine [Norvasc] 10 mg PO HS 04/04/15 11/16/23 lisinopriL [Zestril] 40 mg PO HS 04/04/15 11/14/23 Gabapentin [Neurontin] 100 mg PO QAM 03/12/16 11/16/23 DULoxetine HCL [Cymbalta] 60 mg PO BID 11/09/19 11/16/23 Solifenacin Succinate [Vesicare] 10 mg PO HS 05/11/21 11/16/23 Naproxen 500 mg PO BID PRN 11/04/21 11/14/23 Omeprazole 20 mg PO QAM 03/24/22 11/16/23 Gabapentin [Neurontin] 400 mg PO HS 05/31/22 11/16/23 Cetirizine HCl [Zyrtec] 10 mg PO DAILY 11/14/23 11/14/23 Multivitamins, Thera [Multivitamin 1 tab PO DAILY 11/14/23 11/16/23 (formulary)] bisacodyL [Dulcolax] 5 mg PO DAILY 11/14/23 11/14/23 Previous Rx's Medication Instructions Recorded Cephalexin [Keflex] 500 mg PO Q6HR #28 cap 12/30/23 Allergies Allergy/AdvReac Type Severity Reaction Status Date / Time No Known Allergies Allergy Verified 12/29/23 21:44 Review of Systems ROS Other: All systems not noted in ROS Statement are negative. <Vielka Knox - Last Filed: 12/29/23 21:59> ROS Other: All systems not noted in ROS Statement are negative. <OliveWin - Last Filed: 01/22/24 13:04> ROS Statement: Those systems with pertinent positive or pertinent negative responses have been documented in the HPI. EKG Findings - EKG Results: EKG: interpreted by ERMD, sinus rhythm (Rate 78 bpm), normal axis, normal ST/T <OliveWin - Last Filed: 01/22/24 13:04> Past Medical History Past Medical History: Hypertension Additional Past Medical History / Comment(s): kidney stones, MIGRAINE HEADACHES, NEUROPATHY, History of Any Multi-Drug Resistant Organisms: None Reported Past Surgical History: Bariatric Surgery, Joint Replacement Additional Past Surgical History / Comment(s): left knee replacement, Right knee been replaced twice, LEFT ANKLE SURGERY, RIGHT HEEL SURGERY , RIGHT ROTATOR CUFF SURGERY X2, D&C, LAP BAND SURGERY, REMOVAL OF LAP BAND, GASTRIC SLEEVE, LT SHOULDER SX X2, Past Anesthesia/Blood Transfusion Reactions: No Reported Reaction Past Psychological History: Anxiety, Depression Smoking Status: Never smoker Past Alcohol Use History: None Reported Past Drug Use History: None Reported - Past Family History Mother Family Medical History: Cancer Additional Family Medical History / Comment(s): LIVER CANCER. Father Family Medical History: Cancer Additional Family Medical History / Comment(s): COLON CANCER. <Vielka Knox - Last Filed: 12/29/23 21:59> General Exam Limitations: no limitations <Vielka Knox - Last Filed: 12/29/23 21:59> Limitations: no limitations General appearance: alert, in no apparent distress Head exam: Present: atraumatic, normocephalic Eye exam: Present: normal appearance. Absent: scleral icterus, conjunctival injection Neck exam: Present: normal inspection Respiratory exam: Present: normal lung sounds bilaterally. Absent: respiratory distress, wheezes, rales, rhonchi, stridor, accessory muscle use Cardiovascular Exam: Present: regular rate, normal rhythm, normal heart sounds. Absent: systolic murmur, diastolic murmur, rubs, gallop GI/Abdominal exam: Present: soft. Absent: distended, tenderness, guarding, rebound, rigid, mass Extremities exam: Present: normal inspection, normal capillary refill. Absent: pedal edema, calf tenderness Back exam: Present: normal inspection. Absent: CVA tenderness (R), CVA tenderness (L) Neurological exam: Present: alert Skin exam: Present: warm, dry, intact, normal color. Absent: rash <Win Schaefer - Last Filed: 01/22/24 13:04> - General Exam Comments Initial Comments: Visual Physical Exam Vital signs reviewed General: Well-appearing, nontoxic, no acute distress. Head: Normocephalic, atraumatic Eyes: PERRLA, EOMI ENT: Airway patent Chest: Nonlabored breathing Skin: No visual rash, normal skin tone Neuro: Alert and oriented 3 Musculoskeletal: No gross abnormalities (Vielka Knox) Course Vital Signs 12/29/23 12/30/23 12/30/23 21:41 03:54 06:26 Temperature 98.4 F Pulse Rate 84 83 78 Respiratory 20 18 18 Rate Blood Pressure 159/82 126/72 123/63 O2 Sat by Pulse 98 96 96 Oximetry Chest Pain MDM <Vielka Knox - Last Filed: 12/29/23 21:59> <Win Schaefer - Last Filed: 01/22/24 13:04> - MDM I performed the quick note portion of this visit, electronically signed Vielka Knox PA-C (Vielka Knox) Plan patient had duplex Doppler of the left lower extremity which I interpreted as negative for acute DVT. The patient had CT scan of the chest which I interpreted as negative for acute pulmonary embolism, no pneumothorax. Was pt. sent in by a medical professional or institution ([facility]ARIS[facility] Terrazas, HEALTH CARE ASSISTANT, urgent care, hospital, or prison...) When possible be specific @ -[No] Did you speak to anyone other than the patient for history (EMS, parent, family, police, friend...)? What history was obtained from this source @ -[No] Did you review nursing and triage notes (agree or disagree)? Why? @ -[I reviewed and agree with nursing and triage notes] Were old charts reviewed (outside hosp., previous admission, EMS record, old EKG, old radiological studies, urgent care reports/EKG's, prison records)? Report findings @ -[No old charts were reviewed] Differential Diagnosis (chest pain, altered mental status, abdominal pain women, abdominal pain men, vaginal bleeding, weakness, fever, dyspnea, syncope, headache, dizziness, GI bleed, back pain, seizure, CVA, palpatations, mental health, musculoskeletal)? @ -[Differential Chest Pain: Stable Angina, Unstable Angina, STEMI, NSTEMI Aortic Dissection, Pneumothorax, Musculoskeletal, Esophageal Spasm GERD, Cholecystitis, Pancreatitis, Zoster, this is not meant to be an all-inclusive list. EKG interpreted by me (3pts min.). @ -[As above] X-rays interpreted by me (1pt min.). @ -[None done] CT interpreted by me (1pt min.). @ -[None done] U/S interpreted by me (1pt. min.). @ -[None done] What testing was considered but not performed or refused? (CT, X-rays, U/S, labs)? Why? @ -[None] What meds were considered but not given or refused? Why? @ -[None] Did you discuss the management of the patient with other professionals (professionals i.e. , PA, HEALTH CARE ASSISTANT, lab, RT, psych nurse, social contact worker, supervisor respiratory, teacher, human resource officer, insurance case manager)? Give summary @ -[No] Was smoking cessation discussed for >3mins.? @ -[No] Was critical care preformed (if so, how long)? @ -[No] Were there social determinants of health that impacted care today? How? (Homelessness, low income, unemployed, alcoholism, drug addiction, transportation, low edu. Level, literacy, decrease access to med. care, half-way, rehab)? @ -[No] Was there de-escalation of care discussed even if they declined (Discuss DNR or withdrawal of care, Hospice)? DNR status @ -[No] What co-morbidities impacted this encounter? (DM, HTN, Smoking, COPD, CAD, Cancer, CVA, ARF, Chemo, Hep., AIDS, mental health diagnosis, sleep apnea, mo rbid obesity)? @ -Morbid obesity Was patient admitted / discharged? Hospital course, mention meds given and route, prescriptions, significant lab abnormalities, going to OR and other pertinent info. @ -[hospital course] Undiagnosed new problem with uncertain prognosis? @ -[No] Drug Therapy requiring intensive monitoring for toxicity (Heparin, Nitro, Insulin, Cardizem)? @ -[No] Were any procedures done? @ -[No] Diagnosis/symptom? @ - Acute chest pain Urinary tract infection Acute, or Chronic, or Acute on Chronic? @ -[Acute Uncomplicated (without systemic symptoms) or Complicated (systemic symptoms)? @ -[Uncomplicated Side effects of treatment? @ -[No] Exacerbation, Progression, or Severe Exacerbation? @ -[No] Poses a threat to life or bodily function? How? (Chest pain, [place], [place], pneumonia, PE, COPD, DKA, ARF, appy, cholecystitis, CVA, Diverticulitis, Homicidal, Suicidal, threat to staff... and all critical care pts) @ -[No] (Win Schaefer) Disposition <Vielka Knox - Last Filed: 12/29/23 21:59> Is patient prescribed a controlled substance at d/c from ED?: No <Win Schaefer - Last Filed: 01/22/24 13:04> Clinical Impression: Chest pain, UTI (urinary tract infection) Disposition: HOME SELF-CARE Condition: Good Instructions (If sedation given, give patient instructions): Chest Pain (ED), Urinary Tract Infection in Women (ED) Prescriptions: Cephalexin [Keflex] 500 mg PO Q6HR #28 cap Referrals: Jasiel Meléndez MD [Primary Care Provider] - 1-2 days
[2023-12-29 22:11] LABS: Basophils % (A) 1 %; Eosinophils # (A) 0.4 k/uL (0-0.7); Eosinophils % (A) 5 %; HCT 38.2 % (34.0-46.0); HGB 11.9 gm/dL (11.4-16.0); Hypochromasia Slight; Lymphocytes # (A) 2.6 k/uL (1.0-4.8); Lymphocytes % (A) 33 %; MCH 27.6 pg (25.0-35.0); MCHC 31.1 g/dL (31.0-37.0); MCV 88.8 fL (80.0-100.0); Mean Platelet Volume 7.9; Monocytes # (A) 0.4 k/uL (0-1.0); Monocytes % (A) 5 %; Neutrophils # (A) 4.2 k/uL (1.3-7.7); Neutrophils % (A) 54 %; Platelet Count 353 k/uL (150-450); RDW 14.1 % (11.5-15.5); WBC 7.8 k/uL (3.8-10.6)
[2023-12-29 22:21] LABS: INR 0.8 (<1.2); Partial Thromboplastin Time 22.7 sec (22.0-30.0); Prothrombin Time 9.6 sec (10.0-12.5)
[2023-12-29 22:25] LABS: ALT 17 U/L (4-34); AST 20 U/L (14-36); African American GFR (CKD) >90 (>60 ml/min/1.73 sqM); Albumin 3.8 g/dL (3.5-5.0); Alkaline Phosphatase 80 U/L (38-126); Anion Gap 4 mmol/L; Blood Urea Nitrogen 19 mg/dL (7-17); Carbon Dioxide 27 mmol/L (22-30); Chloride 108 mmol/L (98-107); Glucose 93 mg/dL (74-99); Lipase 124 U/L (23-300); Magnesium 2.1 mg/dL (1.6-2.3); Non-African American GFR(CKD) >90 (>60 ml/min/1.73 sqM); Potassium 3.8 mmol/L (3.5-5.1); Sodium 139 mmol/L (137-145); Total Bilirubin 0.4 mg/dL (0.2-1.3); Total Protein 6.1 g/dL (6.3-8.2)
[2023-12-29 22:34] LABS: NT-Pro-B-Type Natriuretic Pept 26 pg/mL
[2023-12-30] MEDS: HYDROmorphone 1 MG/ML 1 ML SYRINGE IM STA (00:45)
[2023-12-30 01:10] LABS: Amorphous Sediment,Urine Occasional /hpf; Appearance,Urine Cloudy (Clear); Bacteria,Urine Few /hpf; Bilirubin,Urine Negative (Negative); Blood,Urine Negative (Negative); Calcium Oxalate Crystals,Urine Many /hpf; Color,Urine Yellow; Glucose,Urine (UA) Negative (Negative); Ketones,Urine Negative (Negative); Leukocyte Esterase,Urine Moderate (Negative); Mucus,Urine Many /hpf; Nitrite,Urine Negative (Negative); Protein,Urine 1+ (Negative); RBC,Urine 2 /hpf (0-5); Specific Gravity,Urine 1.028 (1.001-1.035); Squamous Epithelial Cell,Urine 5 /hpf (0-4); WBC,Urine 43 /hpf (0-5)
[2023-12-30] MEDS: HYDROmorphone 1 MG/ML 1 ML SYRINGE IVP STA ×2 (02:32→06:32)
--- NOTE | 2023-12-30 03:14 | US ---
EXAM: US Duplex Left Lower Extremity Veins CLINICAL HISTORY: ITS.REASON US Reason: pain, possible DVT TECHNIQUE: Real-time duplex ultrasound scan of the left lower extremity veins integrating B-mode two-dimensional vascular structure, Doppler spectral analysis, color flow Doppler imaging and compression. COMPARISON: None. FINDINGS: Deep veins: Unremarkable. No DVT in the visualized common femoral, femoral, proximal deep femoral or popliteal veins. The veins demonstrate normal color flow, are normally compressible, with normal phasic flow and/or augmentation response. Superficial veins: Unremarkable. No thrombus in the visualized great saphenous vein. Soft tissues: No acute findings. No popliteal cyst.. IMPRESSION: Negative for DVT. .
--- NOTE | 2023-12-30 03:41 | CT ---
EXAM: CT Angiography Chest With Intravenous Contrast CLINICAL HISTORY: ITS.REASON CT Reason: pain, possible PE TECHNIQUE: Axial computed tomographic angiography images of the chest with intravenous contrast. CTDI is 59.9 mGy and DLP is 875.5 mGy-cm. This CT exam was performed using one or more of the following dose reduction techniques: automated exposure control, adjustment of the mA and/or kV according to patient size, and/or use of iterative reconstruction technique. MIP reconstructed images were created and reviewed. Coronal and sagittal reformatted images were created and reviewed. COMPARISON: Chest x-ray: 08/10/2019 FINDINGS: Limited exam due to suboptimal IV contrast bolus timing and also by motion/metallic beam hardening artifacts. Pulmonary arteries: Normal caliber. No pulmonary embolism to the level of proximal segmental branches. Distally evaluation is suboptimal due to technical factors.. Aorta: 4.3 cm aneurysmal dilatation of the ascending aorta/proximal aortic arch. No aortic dissection. Lungs: Central airways are patent. Bilateral bronchial wall thickening and mild dilatation/right basilar mild bronchiolectasis. Posteriorly basilar linear interstitial markings/atelectasis. No mass. No consolidation. Pleural space: Unremarkable. No significant effusion. No pneumothorax. An elevated right hemidiaphragm. Heart: Mild/moderate cardiomegaly. Coronary arterial atherosclerosis. No significant pericardial effusion. No evidence of RV dysfunction. Bones/joints: No acute fracture. No dislocation. Soft tissues: Unremarkable. Lymph nodes: Unremarkable. No enlarged lymph nodes. Other findings: Diffuse hepatic steatosis. Surgically absent gallbladder. Post cholecystectomy ductal ectasia. A 2 cm splenic cyst. Prior gastric bariatric surgery with a small/moderate sized hiatal hernia. Bilateral total shoulder replacement. Degenerative spondylitic changes IMPRESSION: No pulmonary embolism to the level of proximal segmental branches. Distally evaluation is suboptimal due to technical factors and artifacts. Mild aneurysm of the ascending aorta. Mild/moderate cardiomegaly. Additional findings as described above .
[2023-12-30 03:56] VITALS: RESP 18
[2023-12-30 06:31] VITALS: BP 123/63; PULSE 78
== END 2023-12-30 06:36 | disposition home or self-care (01) ==
LOC: EC 21:39
DX: R07.89 Other chest pain (principal); N39.0 Urinary tract infection, site not specified; E66.01 Morbid (severe) obesity due to excess calories; Z68.42 Body mass index [BMI] 45.0-49.9, adult
CPT/HCPCS: 99285 ×2; 96365 ×2; 96375 ×2; 96376 ×2; 96372 ×2; 36415 ×2; 93005; 85379; 83880; 80053; 83690; 83735; 84484; 85025; 85610; 85730; 81001; 87086; 93971; 71275; J0696; J1170; Q9967

== ENCOUNTER → 2023-12-30 | Outpatient (CLI) | payer OTHER ==
--- NOTE | 2024-01-03 03:01 | CT ---
EXAMINATION TYPE: CT sinus wo con CT DLP: 518.4 mGycm, Automated exposure control for dose reduction was used. DATE OF EXAM: 12/30/2023 2:46 PM COMPARISON: . CLINICAL INDICATION:Female, 53 years old with history of J32.0 CHRONIC MAXILLARY SINUSITIS; , Chronic sinusitis TECHNIQUE: Multiple thin axial images were obtained through the paranasal sinuses without the use of IV contrast. Additional coronal and sagittal reformatted images were submitted for evaluation. Contrast used: none Oral contrast used: none FINDINGS: Frontal sinuses: Normally developed and aerated. Frontal Recess: Clear Maxillary Sinuses: Appear normally developed and aerated. Maxillary Infundibula(OMC): The bilateral OMCs appear widened and patent, likely on a postoperative b asis. It seems some surgical involvement of the ethmoid air cells has been performed., . Ethmoid sinuses: Normally developed and aerated. Ethmoidal notch: Protected and abutting the lateral lamina. Sphenoid sinuses: Normally developed and aerated. There is complete sellar sphenoid sinus pneumatizat ion without evidence of dehiscence. No dehiscence of carotid canal. No evidence of optic nerve dehis cence within the sphenoid sinus. Sphenoethmoidal recesses: Clear. Nasal septum: Within normal limits.. Nasal Turbinates: Within normal limits. Mastoid air cells & middle ears: The air cells are clear. The middle ears are grossly unremarkable. Modified Soft tissues & Brain: Partially seen without gross abnormality. Globes are intact. Other: Cribriform plate demonstrates symmetric Keros classification type 2 cribriform plate. No evidence of bony dehiscence of skull base. Lamina papyracea is intact without evidence of remote orbital fracture or orbital prolapse into the e thmoid sinus. IMPRESSION: * Probable postoperative changes involving the maxillary sinuses, with widely patent OMCs. * No significant paranasal sinus fluid accumulation.
== END | disposition home or self-care (01) ==
LOC: RADCTMAIN 14:33
PROVIDERS: ATTEND Otolaryngology Sleep Medicine
DX: J32.0 Chronic maxillary sinusitis (principal)
CPT/HCPCS: 70486

== ENCOUNTER → 2024-03-21 | Outpatient (CLI) | payer OTHER ==
[2024-03-21 15:26] LABS: Basophils # (A) 0.06 X 10*3/uL (0.00-0.10); Basophils % (A) 0.9 %; Eosinophils # (A) 0.34 X 10*3/uL (0.04-0.35); Eosinophils % (A) 5.1 %; HCT 35.8 % (37.2-46.3); HGB 10.8 g/dL (12.0-15.0); Lymphocytes # (A) 1.92 X 10*3/uL (0.90-5.00); MCH 25.6 pg (27.0-32.0); MCHC 30.2 g/dL (32.0-37.0); MCV 84.8 FL (80.0-97.0); Mean Platelet Volume 10.3 FL (9.5-12.2); Monocytes # (A) 0.45 X 10*3/uL (0.20-1.00); Monocytes % (A) 6.8 %; NRBC Per 100 WBC 0 X 10*3/uL (0.00-0.01); Neutrophils % (A) 57.6 %; Platelet Count 372 X 10*3/uL (140-440); RBC 4.22 X 10*6/uL (4.10-5.20); RDW 14.8 % (11.5-14.5); WBC 6.61 X 10*3/uL (4.50-10.00)
[2024-03-21 16:06] LABS: ALT 14 U/L (8-44); AST 12 U/L (13-35); Albumin 3.9 g/dL (3.8-4.9); Albumin/Globulin Ratio 1.86 Ratio (1.60-3.17); Alkaline Phosphatase 77 U/L (41-126); Amylase 23 U/L (23-121); Blood Urea Nitrogen 15.4 mg/dL (9.0-27.0); Carbon Dioxide 26.7 mmol/L (21.6-31.8); Chloride 108 mmol/L (96-109); Chol/HDL Ratio 2.66 Ratio; Globulin 2.1 g/dL (1.6-3.3); Glucose 106 mg/dL (70-110); LDL Cholesterol,Calculated 64.6 mg/dL (0.0-131.0); Lipase 26 U/L (14-63); Potassium 4.2 mmol/L (3.5-5.5); Sodium 144 mmol/L (135-145); Total Bilirubin 0.3 mg/dL (0.3-1.2)
[2024-03-21 16:13] LABS: NT-Pro-B-Type Natriuretic Pept 66 pg/mL (0-125)
== END | disposition home or self-care (01) ==
LOC: LABWHC1 08:30
PROVIDERS: ATTEND Student in an Organized Health Care Education/Training Program
DX: E11.22 Type 2 diabetes mellitus with diabetic chronic kidney disease (principal); I13.0 Hypertensive heart and chronic kidney disease with heart failure and stage 1 through stage 4 chronic kidney disease, or unspecified chronic kidney disease; I50.9 Heart failure, unspecified; N18.9 Chronic kidney disease, unspecified; D63.1 Anemia in chronic kidney disease; N39.0 Urinary tract infection, site not specified; E78.5 Hyperlipidemia, unspecified; R06.02 Shortness of breath; R10.9 Unspecified abdominal pain
CPT/HCPCS: 36415; 80053; 80061; 82150; 83036; 83690; 83880; 84443; 85025; 87086

== ENCOUNTER 2024-09-26 18:58 | Emergency (ER) | payer OTHER ==
--- NOTE | 2024-09-26 19:52 | ED ---
General Adult HPI - General Source: patient, RN notes reviewed Mode of arrival: ambulatory Limitations: no limitations <Kacey Merchant - Last Filed: 09/26/24 19:51> - General Source: patient, RN notes reviewed <Ute Tripp - Last Filed: 09/26/24 23:05> - General Chief complaint: Urogenital Stated complaint: r flank pain Time Seen by Provider: 09/26/24 19:12 - History of Present Illness Initial comments: Quick [id number] female presenting to the emergency department for complaint of right flank pain with radiation to the mid abdomen that started Tuesday night. She endorses nausea. Denies hematuria, dysuria, fevers or chills. Does have a history of kidney stones. (Kacey Merchant) 54-year-old female presenting to the emergency department for chief complaint of right flank pain x 4 days. States Tuesday night she began to experience a constant pain in the right flank that radiates to the mid abdomen. States she has a history of both herniated disc and kidney stones. Denies hematuria, dysuria, urinary frequency, chills, fever, vomiting. Denies injury or trauma. No radiation to the legs. Denies bowel or bladder incontinence or saddle anesthesia. Denies numbness or tingling in the bilateral lower extremities. (Ute Tripp) - Related Data Home Medications Medication Instructions Recorded Confirmed Hydrocodone/Acetaminophen [[place] 1 tab PO QID PRN 04/04/15 11/16/23 10-325] Metoprolol Tartrate [Lopressor] 50 mg PO BID 04/04/15 11/16/23 amLODIPine [Norvasc] 10 mg PO HS 04/04/15 11/16/23 lisinopriL [Zestril] 40 mg PO HS 04/04/15 11/14/23 Gabapentin [Neurontin] 100 mg PO QAM 03/12/16 11/16/23 DULoxetine HCL [Cymbalta] 60 mg PO BID 11/09/19 11/16/23 Solifenacin Succinate [Vesicare] 10 mg PO HS 05/11/21 11/16/23 Naproxen 500 mg PO BID PRN 11/04/21 11/14/23 Omeprazole 20 mg PO QAM 03/24/22 11/16/23 Gabapentin [Neurontin] 400 mg PO HS 05/31/22 11/16/23 Cetirizine HCl [Zyrtec] 10 mg PO DAILY 11/14/23 11/14/23 Multivitamins, Thera [Multivitamin 1 tab PO DAILY 11/14/23 11/16/23 (formulary)] bisacodyL [Dulcolax] 5 mg PO DAILY 11/14/23 11/14/23 Previous Rx's Medication Instructions Recorded Cephalexin [Keflex] 500 mg PO Q6HR #28 cap 12/30/23 Lidocaine 4% Patch 1 patch TOPICAL Q12H PRN 7 Days #7 09/26/24 patch Allergies Allergy/AdvReac Type Severity Reaction Status Date / Time No Known Allergies Allergy Verified 09/26/24 19:23 Review of Systems ROS Other: All systems not noted in ROS Statement are negative. <Kacey Merchant - Last Filed: 09/26/24 19:51> ROS Other: All systems not noted in ROS Statement are negative. <Ute Tripp - Last Filed: 09/26/24 23:05> ROS Statement: Those systems with pertinent positive or pertinent negative responses have been documented in the HPI. Past Medical History Past Medical History: Hypertension Additional Past Medical History / Comment(s): kidney stones, MIGRAINE HEADACHES, NEUROPATHY, History of Any Multi-Drug Resistant Organisms: None Reported Past Surgical History: Bariatric Surgery, Joint Replacement Additional Past Surgical History / Comment(s): left knee replacement, Right knee been replaced twice, LEFT ANKLE SURGERY, RIGHT HEEL SURGERY , RIGHT ROTATOR CUFF SURGERY X2, D&C, LAP BAND SURGERY, REMOVAL OF LAP BAND, GASTRIC SLEEVE, LT SHOULDER SX X2, Past Anesthesia/Blood Transfusion Reactions: No Reported Reaction Past Psychological History: Anxiety, Depression Smoking Status: Never smoker Past Alcohol Use History: None Reported Past Drug Use History: None Reported - Past Family History Mother Family Medical History: Cancer Additional Family Medical History / Comment(s): LIVER CANCER. Father Family Medical History: Cancer Additional Family Medical History / Comment(s): COLON CANCER. <Kacey Merchant - Last Filed: 09/26/24 19:51> General Exam Limitations: no limitations <Kacey Merchant - Last Filed: 09/26/24 19:51> General appearance: alert, in no apparent distress Head exam: Present: atraumatic, normocephalic, normal inspection Eye exam: Present: normal appearance, PERRL, EOMI. Absent: scleral icterus, conjunctival injection, periorbital swelling GI/Abdominal exam: Present: soft, normal bowel sounds. Absent: distended, tenderness, guarding, rebound, rigid Back exam: Present: normal inspection, full ROM, tenderness (Point tenderness to the lumbar spine and right paraspinal area), paraspinal tenderness, vertebral tenderness, other (Full strength and range of motion of bilateral lower extremities, no saddle anesthesia, full sensation and DP pulses bilaterally). Absent: CVA tenderness (R), CVA tenderness (L) Neurological exam: Present: alert, oriented X3 Psychiatric exam: Present: normal affect, normal mood Skin exam: Present: warm, dry, intact, normal color. Absent: rash <Ute Tripp - Last Filed: 09/26/24 23:05> - General Exam Comments Initial Comments: Visual Physical Exam Vital signs reviewed General: Well-appearing, nontoxic, no acute distress. Head: Normocephalic, atraumatic Eyes: PERRLA, EOMI ENT: Airway patent Chest: Nonlabored breathing Skin: No visual rash, normal skin tone Neuro: Alert and oriented 3 Musculoskeletal: No gross abnormalities (Kacey Merchant) Course Vital Signs 09/26/24 19:20 Temperature 97.9 F Pulse Rate 67 Respiratory 17 Rate Blood Pressure 168/94 O2 Sat by Pulse 100 Oximetry Medical Decision Making <Kacey Merchant - Last Filed: 09/26/24 19:51> - Lab Data Result diagrams: 09/26/24 21:03 09/26/24 21:03 <Ute Tripp - Last Filed: 09/26/24 23:05> - Medical Decision Making I completed the quick note portion of this chart signed Kacey Merchant PA-C (Kacey Merchant) Was pt. sent in by a medical professional or institution (KARISSA Terrazas, [employer] TECHNICIAN, urgent care, hospital, or shelter...) When possible be specific @ -No Did you speak to anyone other than the patient for history (EMS, parent, family, police, friend...)? What history was obtained from this source @ -No Did you review nursing and triage notes (agree or disagree)? Why? @ -I reviewed and agree with nursing and triage notes Were old charts reviewed (outside hosp., previous admission, EMS record, old EKG, old radiological studies, urgent care reports/EKG's, shelter records)? Report findings @ -No old charts were reviewed Differential Diagnosis (chest pain, altered mental status, abdominal pain women, abdominal pain men, vaginal bleeding, weakness, fever, dyspnea, syncope, headache, dizziness, GI bleed, back pain, seizure, CVA, palpatations, mental health, musculoskeletal)? @ -Differential Abdominal Pain Women: Appendicitis, Cholecystitis, diverticulosis, ischemic bowel, pancreatitis, hepatitis, UTI, gastroenteritis, AAA, incarcerated hernia, bowel obstruction, constipation, inflammatory bowel, hepatitis, peptic ulcer disease, splenic infarction, perforated viscus, vulvitis, ovarian torsion, PID, kidney stone, placenta abruption, this is not meant to be an all-inclusive list EKG interpreted by me (3pts min.). @ -None X-rays interpreted by me (1pt min.). @ -None done CT interpreted by me (1pt min.). @ -CT abdomen pelvis reveals no evidence for acute abdominal obstructive process, no obstructive uropathy, nonobstructive bilateral renal calculi U/S interpreted by me (1pt. min.). @ -None done What testing was considered but not performed or refused? (CT, X-rays, U/S, labs)? Why? @ -None What meds were considered but not given or refused? Why? @ -None Did you discuss the management of the patient with other professionals (professionals i.e. , PA, [employer] TECHNICIAN, lab, RT, psych nurse, director social welfare, global sales director, teacher, officer lieutenant, disease case manager rn)? Give summary @ -No Was smoking cessation discussed for >3mins.? @ -No Was critical care preformed (if so, how long)? @ -No Were there social determinants of health that impacted care today? How? (Homelessness, low income, unemployed, alcoholism, drug addiction, transportation, low edu. Level, literacy, decrease access to med. care, nursing home, rehab)? @ -No Was there de-escalation of care discussed even if they declined (Discuss DNR or withdrawal of care, Hospice)? DNR status @ -No What co-morbidities impacted this encounter? (DM, HTN, Smoking, COPD, CAD, Cancer, CVA, ARF, Chemo, Hep., AIDS, mental health diagnosis, sleep apnea, morbid obesity)? @ -None Was patient admitted / discharged? Hospital course, mention meds given and route, prescriptions, significant lab abnormalities, going to OR and other pertinent info. @ -Discharge. 34-year-old female with right flank pain x 4 days. No urinary complaints or known injury. Neurovascularly intact to the bilateral lower extremities. There is some reproducible tenderness in the right lower back. Patient was provided with IV Dilaudid, Norflex, and topical lidocaine patches. Lab work largely unremarkable. Urinalysis reveals trace leukocytes otherwise no acute process. CT abdomen pelvis reveals no evidence for acute abdominal obstructive process, no obstructive uropathy, nonobstructive bilateral renal calculi. Results discussed with patient. I highly suspect symptoms are musculoskeletal in nature. Provided outpatient prescription for lidocaine patches. Advised close follow-up with PCP. Appropriate return precautions discussed. Case was discussed with the ED attending Dr. Sandhu. Undiagnosed new problem with uncertain prognosis? @ -No Drug Therapy requiring intensive monitoring for toxicity (Heparin, Nitro, Insulin, Cardizem)? @ -No Were any procedures done? @ -No Diagnosis/symptom? @ -Low back strain Acute, or Chronic, or Acute on Chronic? @ -Acute Uncomplicated (without systemic symptoms) or Complicated (systemic symptoms)? @ -Uncomplicated Side effects of treatment? @ -No Exacerbation, Progression, or Severe Exacerbation? @ -No Poses a threat to life or bodily function? How? (Chest pain, [place], [place], pneumonia, PE, COPD, DKA, ARF, appy, cholecystitis, CVA, Diverticulitis, Homicidal, Suicidal, threat to staff... and all critical care pts) @ -No (Ute Tripp) - Lab Data Lab Results 09/26/24 09/26/24 09/26/24 Range/Units 20:01 21:03 21:03 WBC 8.1 (3.8-10.6) k/uL RBC 4.11 (3.80-5.40) m/uL Hgb 10.3 L (11.4-16.0) gm/dL Hct 33.7 L (34.0-46.0) % MCV 82.0 (80.0-100.0) fL MCH 25.0 (25.0-35.0) pg MCHC 30.5 L (31.0-37.0) g/dL RDW 15.2 (11.5-15.5) % Plt Count 359 (150-450) k/uL MPV 7.8 Neutrophils % 57 % Lymphocytes % 32 % Monocytes % 4 % Eosinophils % 4 % Basophils % 0 % Neutrophils # 4.6 (1.3-7.7) k/uL Lymphocytes # 2.6 (1.0-4.8) k/uL Monocytes # 0.3 (0-1.0) k/uL Eosinophils # 0.3 (0-0.7) k/uL Basophils # 0.0 (0-0.2) k/uL Hypochromasia Marked Sodium 140 (137-145) mmol/L Potassium 3.8 (3.5-5.1) mmol/L Chloride 104 (98-107) mmol/L Carbon Dioxide 29 (22-30) mmol/L Anion Gap 7 mmol/L BUN 17 (7-17) mg/dL Creatinine 0.62 (0.52-1.04) mg/dL Est GFR (CKD-EPI)AfAm >90 (>60 ml/min/1.73 sqM) Est GFR (CKD-EPI)NonAf >90 (>60 ml/min/1.73 sqM) Glucose 92 (74-99) mg/dL Calcium 9.3 (8.4-10.2) mg/dL Total Bilirubin 0.4 (0.2-1.3) mg/dL AST 20 (14-36) U/L ALT 14 (4-34) U/L Alkaline Phosphatase 81 (38-126) U/L Total Protein 6.3 (6.3-8.2) g/dL Albumin 3.7 (3.5-5.0) g/dL Urine Color Light Yellow Urine Appearance Clear (Clear) Urine pH 6.0 (5.0-8.0) Ur Specific [place] 1.012 (1.001-1.035) Urine Protein Negative (Negative) Urine Glucose (UA) Negative (Negative) Urine Ketones Negative (Negative) Urine Blood Negative (Negative) Urine Nitrite Negative (Negative) Urine Bilirubin Negative (Negative) Urine Urobilinogen <2.0 (<2.0) mg/dL Ur Leukocyte Esterase Trace H (Negative) Urine RBC 1 (0-5) /hpf Urine WBC 3 (0-5) /hpf Ur Squamous Epith Cells 1 (0-4) /hpf Urine Bacteria Rare H (None) /hpf Hyaline Casts 1 (0-2) /lpf Urine Mucus Moderate H (None) /hpf Disposition <Kacey Merchant - Last Filed: 09/26/24 19:51> Is patient prescribed a controlled substance at d/c from ED?: No Time of Disposition: 23:05 <Ute Tripp - Last Filed: 09/26/24 23:05> Clinical Impression: Low back strain Disposition: HOME SELF-CARE Condition: Stable Instructions (If sedation given, give patient instructions): Low Back Strain (ED) Additional Instructions: Use lidocaine patches as needed for back pain. Follow-up with your PCP as discussed. Please return to the Emergency Department if symptoms worsen or any other concerns. Prescriptions: Lidocaine 4% Patch 1 patch TOPICAL Q12H PRN 7 Days #7 patch PRN Reason: Pain Referrals: Jasiel Meléndez MD [Primary Care Provider] - 1-2 days
[2024-09-26 20:09] LABS: Appearance,Urine Clear (Clear); Bacteria,Urine Rare /hpf; Bilirubin,Urine Negative (Negative); Blood,Urine Negative (Negative); Color,Urine Light Yellow; Glucose,Urine (UA) Negative (Negative); Hyaline Casts,Urine 1 /lpf (0-2); Ketones,Urine Negative (Negative); Leukocyte Esterase,Urine Trace (Negative); Mucus,Urine Moderate /hpf; Nitrite,Urine Negative (Negative); Protein,Urine Negative (Negative); RBC,Urine 1 /hpf (0-5); Specific Gravity,Urine 1.012 (1.001-1.035); Squamous Epithelial Cell,Urine 1 /hpf (0-4); Urobilinogen,Urine <2.0 mg/dL (<2.0); WBC,Urine 3 /hpf (0-5)
--- NOTE | 2024-09-26 20:46 | CT ---
EXAMINATION TYPE: CT abdomen pelvis wo con CT DLP: 1430 mGycm, Automated exposure control for dose reduction was used. DATE OF EXAM: 09/26/2024 8:14 PM COMPARISON: CT abdomen pelvis 11/09/2019, 07/21/2016, 03/12/2016 CLINICAL INDICATION:Female, 54 years old with history of R flank pain, hx kidney stones; R flank pain , hx kidney stones. TECHNIQUE: Standard CT of the abdomen and pelvis without IV or oral contrast. Lack of IV or oral co ntrast limits evaluation of solid and hollow organ viscera. Coronal and sagittal reformats were perfo rmed. FINDINGS: LOWER CHEST: The visualized lungs are clear. Elevation the right hemidiaphragm. ABDOMEN LIVER: No significant finding. GALLBLADDER AND BILE DUCTS: The gallbladder is surgically absent. No biliary duct dilatation. PANCREAS: Unremarkable noncontrast appearance. SPLEEN: Stable 1.5 cm cystic lesion with peripheral calcification dated back to 2019 and considered b enign ADRENAL GLANDS: Unremarkable noncontrast appearance.. KIDNEYS AND URETERS: No evidence of hydronephrosis. Nonobstructive renal lower pole 2 mm calculus. Ap proximately 4 nonobstructive left renal lower pole calculi with largest measuring up to 2 mm. No uret eral calculus. No perinephric fat stranding. PELVIS stable right inferior hepatic lobe 1 cm cyst. BLADDER: Unremarkable noncontrast appearance. REPRODUCTIVE: The uterus is surgically absent. ABDOMEN & PELVIS STOMACH AND BOWEL: Surgical changes from gastric sleeve with small hiatal hernia.Postsurgical changes from appendectomy. No focal bowel wall thickening or surrounding inflammatory changes. No evidence o f bowel obstruction. PERITONEUM: No evidence of pneumoperitoneum or free fluid. VASCULATURE: No evidence of aortic aneurysm. A few pelvic phleboliths. MUSCULOSKELETAL: No acute osseous abnormalities. Mild S-shaped scoliotic curvature of the visualized thoracolumbar spine. Moderate multilevel degenerative disc disease and facet arthropathy. LYMPH NODES: No gross evidence for lymphadenopathy. SOFT TISSUE/ABDOMINAL WALL: Few benign calcifications within the anterior abdominal wall subcutaneous tissues. IMPRESSION: 1. No CT evidence for acute abdominal study process within limitations of a noncontrast exam. No babar dence for obstructive uropathy. 2. Nonobstructive bilateral renal calculi. 3. Postsurgical changes of the bowel. [facility], , 09/26/2024 8:44 PM
[2024-09-26] MEDS: HYDROmorphone 1 MG/ML 1 ML SYRINGE IVP STA (21:20)
[2024-09-26] MEDS: ORPHENADRINE 30 MG/ML 2 ML VIAL IVP STA (21:24)
[2024-09-26] MEDS: LIDOCAINE 4% PATCH TOPICAL ONE (21:24)
[2024-09-26 21:37] LABS: ALT 14 U/L (4-34); AST 20 U/L (14-36); African American GFR (CKD) >90 (>60 ml/min/1.73 sqM); Albumin 3.7 g/dL (3.5-5.0); Alkaline Phosphatase 81 U/L (38-126); Anion Gap 7 mmol/L; Blood Urea Nitrogen 17 mg/dL (7-17); Calcium 9.3 mg/dL (8.4-10.2); Carbon Dioxide 29 mmol/L (22-30); Chloride 104 mmol/L (98-107); Glucose 92 mg/dL (74-99); Non-African American GFR(CKD) >90 (>60 ml/min/1.73 sqM); Potassium 3.8 mmol/L (3.5-5.1); Sodium 140 mmol/L (137-145); Total Bilirubin 0.4 mg/dL (0.2-1.3); Total Protein 6.3 g/dL (6.3-8.2)
[2024-09-26 21:39] LABS: Basophils % (A) 0 %; Eosinophils # (A) 0.3 k/uL (0-0.7); Eosinophils % (A) 4 %; HCT 33.7 % (34.0-46.0); HGB 10.3 gm/dL (11.4-16.0); Hypochromasia Marked; Lymphocytes # (A) 2.6 k/uL (1.0-4.8); Lymphocytes % (A) 32 %; MCHC 30.5 g/dL (31.0-37.0); Mean Platelet Volume 7.8; Monocytes # (A) 0.3 k/uL (0-1.0); Monocytes % (A) 4 %; Neutrophils # (A) 4.6 k/uL (1.3-7.7); Neutrophils % (A) 57 %; Platelet Count 359 k/uL (150-450); RBC 4.11 m/uL (3.80-5.40); RDW 15.2 % (11.5-15.5); WBC 8.1 k/uL (3.8-10.6)
[2024-09-26] MEDS: HYDROmorphone 0.5 MG/0.5 ML SYRINGE IVP STA (22:32)
[2024-09-26 23:41] VITALS: BP 129/82; PULSE 65; RESP 18; TEMP 98
== END 2024-09-26 23:24 | disposition home or self-care (01) ==
LOC: EC 18:58
DX: S39.012A Strain of muscle, fascia and tendon of lower back, initial encounter (principal); Z87.442 Personal history of urinary calculi
CPT/HCPCS: 36415; 80053; 85025; 81001; 74176; 99284; 96374; 96375; 96376; J2360; J1171 ×2

== ENCOUNTER → 2024-09-26 | Outpatient (CLI) | payer OTHER ==
[2024-09-26 15:10] LABS: HCT 35.3 % (37.2-46.3); HGB 10.4 g/dL (12.0-15.0); MCH 24.5 pg (27.0-32.0); MCHC 29.5 g/dL (32.0-37.0); MCV 83.1 FL (80.0-97.0); Mean Platelet Volume 10.8 FL (9.5-12.2); NRBC Per 100 WBC 0 X 10*3/uL (0.00-0.01); Platelet Count 409 X 10*3/uL (140-440); RBC 4.25 X 10*6/uL (4.10-5.20); RDW 15.5 % (11.5-14.5); WBC 6.83 X 10*3/uL (4.50-10.00)
[2024-09-26 15:11] LABS: Basophils # (A) 0.05 X 10*3/uL (0.00-0.10); Basophils % (A) 0.7 %; Eosinophils # (A) 0.32 X 10*3/uL (0.04-0.35); Eosinophils % (A) 4.7 %; Lymphocytes # (A) 1.92 X 10*3/uL (0.90-5.00); Lymphocytes % (A) 28.1 %; Monocytes # (A) 0.41 X 10*3/uL (0.20-1.00); Neutrophils % (A) 60.1 %
[2024-09-26 17:20] LABS: ALT 14 U/L (8-44); AST 17 U/L (13-35); Albumin 3.8 g/dL (3.8-4.9); Albumin/Globulin Ratio 1.73 Ratio (1.60-3.17); Alkaline Phosphatase 84 U/L (41-126); Calcium 8.9 mg/dL (8.7-10.3); Carbon Dioxide 27.1 mmol/L (21.6-31.8); Chloride 108 mmol/L (96-109); Chol/HDL Ratio 2.52 Ratio; Globulin 2.2 g/dL (1.6-3.3); Glucose 112 mg/dL (70-110); Sodium 145 mmol/L (135-145); Total Bilirubin 0.3 mg/dL (0.3-1.2); VLDL Calculation 18.54 mg/dL (5.00-40.00)
== END | disposition home or self-care (01) ==
LOC: LABWHC1 09:31
PROVIDERS: ATTEND Family Medicine
DX: E55.9 Vitamin D deficiency, unspecified (principal); E78.5 Hyperlipidemia, unspecified; R73.03 Prediabetes
CPT/HCPCS: 36415; 80053; 80061; 82306; 83036; 84443; 85025

== ENCOUNTER → 2024-11-15 | Outpatient (CLI) | payer OTHER ==
--- NOTE | 2024-11-15 15:58 | MM ---
Reason for Exam: Screening (asymptomatic). Last mammogram was performed 1 year(s) and 11 month(s) ago. Patient History: Menarche at age 15. First Full-Term at age 22. Left ovary removed at age 30. Right ovary removed at age 30. Hysterectomy at age 30. Postmenopausal. Estrogen, starting at age 30 for 16 years, 7 months. Benign Excisional Biopsy on the left side. Risk Values: Shonda 5 year model risk: 1.1%. NCI Lifetime model risk: 7.9%. Prior Study Comparison: 03/29/2019 Bilateral Screening Mammogram, [facility]. 05/12/2020 Bilateral Screening Mammogram, [facility]. 01/05/2023 Bilateral MG 3D screening mammo w/cad, [facility]. Tissue Density: There are scattered areas of fibroglandular density. Findings: Analyzed By CAD. There are small benign appearing round calcifications bilaterally redemonstrated. Benign-appearing bilateral axillary lymph nodes are again seen. There is no suspicious group of microcalcifications or new suspicious mass in either breast. Overall Assessment: Benign, BI-RAD 2 Management: Screening Mammogram of both breasts in 1 year. . Patient should continue monthly self-breast exams. A clinical breast exam by your physician is recommended on an annual basis. This exam should not preclude additional follow-up of suspicious palpable abnormalities. Note on Shonda scores and lifetime risk: 1. A Shonda score greater than 3% is considered moderate risk. If this is the case, consider specialist referral to assess eligibility for a risk reducing agent. 2. If overall lifetime risk for the development of breast cancer is 20% or higher, the patient may qualify for future screening with alternating mammogram and breast MRI. [facility], , 11/15/2024 3:55 PM. Electronically signed and approved by: Hossein Galan M.D.
== END | disposition home or self-care (01) ==
LOC: RADMAMWWP 15:28
PROVIDERS: ATTEND Family Medicine
DX: Z12.31 Encounter for screening mammogram for malignant neoplasm of breast (principal); R92.323 Mammographic fibroglandular density, bilateral breasts; Z78.0 Asymptomatic menopausal state
CPT/HCPCS: 77063; 77067

== ENCOUNTER 2025-01-01 08:35 | Day surgery (SDC) | payer OTHER ==
[~2025-01-01 08:35] MED LIST changes: -LACTATED RINGERS 1,000 ML IV SCH; -ceFAZolin 3 GM in SODIUM CHLORIDE 0.9% 100 ML IVPB PRN
[2025-01-01 09:31] VITALS: TEMP 97.5
[2025-01-01] MEDS: LACTATED RINGERS 1,000 ML IV ONE (09:43)
[2025-01-01] MEDS: LACTATED RINGERS 1,000 ML IV SCH (09:43)
[2025-01-01] MEDS ORDERED: PROPOFOL 10 MG/ML 20 ML VIAL IV ONE (09:53)
[2025-01-01] MEDS ORDERED: LIDOCAINE 2% (PF) 20 MG/ML 5 ML VIAL ONE (09:53)
--- NOTE | 2025-01-01 10:07 | P.GSHP ---
History of Present Illness H&P Date: 01/01/25 Chief Complaint: Colon cancer screening 54-year-old female here for colonoscopy. Patient with family history of colon cancer in his parents. No bowel complaints. Unsure when the last colonoscopy was Past Medical History Past Medical History: Hypertension, Seizure Disorder Additional Past Medical History / Comment(s): kidney stones, MIGRAINE HEADACHES, NEUROPATHY, epilepsy - absence seizures since 2022, most recent seizure October 2024 History of Any Multi-Drug Resistant Organisms: None Reported Past Surgical History: Bariatric Surgery, Hysterectomy, Joint Replacement Additional Past Surgical History / Comment(s): Lt. TKA, Rt TKA x 2, LEFT ANKLE SURGERY, RIGHT HEEL SURGERY , RIGHT ROTATOR CUFF SURGERY X2, D&C, LAP BAND SURGERY, REMOVAL OF LAP BAND, GASTRIC SLEEVE, LT SHOULDER ARTHROSCOPIC SURGERY X2, Bilat. shoulder replacements Past Anesthesia/Blood Transfusion Reactions: No Reported Reaction Smoking Status: Never smoker - Past Family History Mother Family Medical History: Cancer Additional Family Medical History / Comment(s): LIVER CANCER. Father Family Medical History: Cancer Additional Family Medical History / Comment(s): COLON CANCER. Medications and Allergies Home Medications Medication Instructions Recorded Confirmed Type Hydrocodone/Acetaminophen [[place]ense 1 tab PO QID PRN 04/04/15 01/01/25 History 10-325] Metoprolol Tartrate [Lopressor] 50 mg PO BID 04/04/15 01/01/25 History amLODIPine [Norvasc] 10 mg PO HS 04/04/15 01/01/25 History lisinopriL [Zestril] 40 mg PO HS 04/04/15 01/01/25 History Gabapentin [Neurontin] 100 mg PO QAM 03/12/16 01/01/25 History DULoxetine HCL [Cymbalta] 60 mg PO BID 11/09/19 01/01/25 History Solifenacin Succinate [Vesicare] 10 mg PO HS 05/11/21 01/01/25 History Naproxen 500 mg PO BID PRN 11/04/21 01/01/25 History Omeprazole 20 mg PO QAM 03/24/22 01/01/25 History Gabapentin [Neurontin] 400 mg PO HS 05/31/22 01/01/25 History Cetirizine HCl [Zyrtec] 10 mg PO DAILY 11/14/23 01/01/25 History bisacodyL [Dulcolax] 5 mg PO DAILY 11/14/23 01/01/25 History Amoxicillin/Potassium Clav 1 tab PO Q12H 12/31/24 01/01/25 History [Amox-Clav 875-125 mg Tablet] levETIRAcetam [Keppra] 750 mg PO BID 12/31/24 01/01/25 History Allergies Allergy/AdvReac Type Severity Reaction Status Date / Time No Known Allergies Allergy Verified 01/01/25 09:23 Surgical - Exam Vital Signs Temp Pulse Resp BP Pulse Ox 97.5 F L 61 18 136/71 97 01/01/25 09:29 01/01/25 09:29 01/01/25 09:29 01/01/25 09:29 01/01/25 09:29 Physical exam: General: Well-developed, well-nourished HEENT: Normocephalic, sclerae nonicteric Abdomen: Nontender, nondistended Extremities: No edema Neuro: Alert and oriented Assessment and Plan (1) Colon cancer screening Narrative/Plan: Will proceed with colonoscopy at this time. Current Visit: Yes Status: Acute Code(s): Z12.11 - ENCOUNTER FOR SCREENING FOR MALIGNANT NEOPLASM OF COLON SNOMED Code(s): 005043373
--- NOTE | 2025-01-01 10:13 | P.PCN ---
Date of Procedure: 01/01/25 Procedure(s) Performed: PREOPERATIVE DIAGNOSIS: Colon cancer screening POSTOPERATIVE DIAGNOSIS: Poor prep PROCEDURE: Colonoscopy aborted ANESTHESIA: MAC SURGEON: Ventura Sosa M.D. SPECIMENS: None ENDOSCOPIC PROCEDURE: The patient was placed on the endoscopy table in the left decubitus position. The Olympus colonoscope was inserted into the anus and passed under direct visualization to the mid sigmoid colon. The patient had retained semisolid stool. We were not able to visualize the mucosa. The scope was withdrawn and the procedure was aborted. The patient was taken to the recovery room in stable condition per anesthesia guidelines. RECOMMENDATIONS: Patient will require repeat prep and repeat colonoscopy.
[2025-01-01 10:52] VITALS: BP 115/63; PULSE 63; RESP 18
== END 2025-01-01 11:18 | disposition home or self-care (01) ==
LOC: ORWHC2ENDO 08:35
PROVIDERS: ATTEND Surgery
DX: Z12.11 Encounter for screening for malignant neoplasm of colon (principal); Z53.8 Procedure and treatment not carried out for other reasons; I10 Essential (primary) hypertension; F41.9 Anxiety disorder, unspecified; F32.A Depression, unspecified; G43.909 Migraine, unspecified, not intractable, without status migrainosus; G62.9 Polyneuropathy, unspecified; G40.909 Epilepsy, unspecified, not intractable, without status epilepticus; Z80.0 Family history of malignant neoplasm of digestive organs; Z79.899 Other long term (current) drug therapy; Z87.442 Personal history of urinary calculi; Z90.710 Acquired absence of both cervix and uterus; Z96.653 Presence of artificial knee joint, bilateral; Z98.890 Other specified postprocedural states; Z96.611 Presence of right artificial shoulder joint; Z96.612 Presence of left artificial shoulder joint
CPT/HCPCS: 45378; J2704; J2003

== ENCOUNTER 2025-01-10 07:47 | Observation (INO) | payer OTHER ==
[2025-01-10 07:56] LABS: Glucose,Whole Blood 345 mg/dL (70-110)
[2025-01-10 08:13] LABS: HCT 47.7 % (37.2-46.3); HGB 13.6 g/dL (12.0-15.0); MCH 22.9 pg (27.0-32.0); MCHC 28.5 g/dL (32.0-37.0); MCV 80.4 fL (80.0-97.0); Mean Platelet Volume 10.3 fL (9.5-12.2); Platelet Count 589 10*3/uL (140-440); RBC 5.93 10*6/uL (4.10-5.20); RDW 16.8 % (11.5-14.5); WBC 10.54 10*3/uL (4.50-10.00)
--- NOTE | 2025-01-10 08:14 | ED ---
General Adult HPI - General Chief complaint: Seizure Stated complaint: Unresponsive Time Seen by Provider: 01/10/25 07:52 Source: EMS Mode of arrival: EMS Limitations: no limitations - History of Present Illness Initial comments: Dictation was produced using [employer] dictation software. please excuse any grammatical, word or spelling errors. Chief Complaint: 54-year-old female with mental status History of Present Illness: Patient is a 54-year-old female presents emergency department altered mental status. Patient is brought in from home by EMS. Roseline corey initially called EMS for shortness of breath. En route to the emergency department patient's mentation began to decline. Patient allegedly has a history of seizure. EMS was told by patient that she concerned she might of had a seizure recently. No seizure-like activity observed by EMS en route. Patient lethargic and complaining of abdominal pain. Patient is a poor historian The ROS documented in this emergency department record has been reviewed and confirmed by me. Those systems with pertinent positive or negative responses have been documented in the HPI. All other systems are other negative and/or noncontributory. - Related Data Home Medications Medication Instructions Recorded Confirmed Hydrocodone/Acetaminophen [[place] 1 tab PO QID PRN 04/04/15 01/01/25 10-325] Metoprolol Tartrate [Lopressor] 50 mg PO BID 04/04/15 01/01/25 amLODIPine [Norvasc] 10 mg PO HS 04/04/15 01/01/25 lisinopriL [Zestril] 40 mg PO HS 04/04/15 01/01/25 Gabapentin [Neurontin] 100 mg PO QAM 03/12/16 01/01/25 DULoxetine HCL [Cymbalta] 60 mg PO BID 11/09/19 01/01/25 Solifenacin Succinate [Vesicare] 10 mg PO HS 05/11/21 01/01/25 Naproxen 500 mg PO BID PRN 11/04/21 01/01/25 Omeprazole 20 mg PO QAM 03/24/22 01/01/25 Gabapentin [Neurontin] 400 mg PO HS 05/31/22 01/01/25 Cetirizine HCl [Zyrtec] 10 mg PO DAILY 11/14/23 01/01/25 bisacodyL [Dulcolax] 5 mg PO DAILY 11/14/23 01/01/25 Amoxicillin/Potassium Clav 1 tab PO Q12H 12/31/24 01/01/25 [Amox-Clav 875-125 mg Tablet] levETIRAcetam [Keppra] 750 mg PO BID 12/31/24 01/01/25 Allergies Allergy/AdvReac Type Severity Reaction Status Date / Time No Known Allergies Allergy Verified 01/01/25 09:23 Review of Systems ROS Statement: Those systems with pertinent positive or pertinent negative responses have been documented in the HPI. ROS Other: All systems not noted in ROS Statement are negative. Past Medical History Past Medical History: Hypertension, Seizure Disorder Additional Past Medical History / Comment(s): kidney stones, MIGRAINE HEADACHES, NEUROPATHY, epilepsy - absence seizures since 2022, most recent seizure October 2024 History of Any Multi-Drug Resistant Organisms: None Reported Past Surgical History: Bariatric Surgery, Hysterectomy, Joint Replacement Additional Past Surgical History / Comment(s): Lt. TKA, Rt TKA x 2, LEFT ANKLE SURGERY, RIGHT HEEL SURGERY , RIGHT ROTATOR CUFF SURGERY X2, D&C, LAP BAND SURGERY, REMOVAL OF LAP BAND, GASTRIC SLEEVE, LT SHOULDER ARTHROSCOPIC SURGERY X2, Bilat. shoulder replacements Past Anesthesia/Blood Transfusion Reactions: No Reported Reaction Past Psychological History: Anxiety, Depression Smoking Status: Never smoker Past Alcohol Use History: Occasional Past Drug Use History: None Reported - Past Family History Mother Family Medical History: Cancer Additional Family Medical History / Comment(s): LIVER CANCER. Father Family Medical History: Cancer Additional Family Medical History / Comment(s): COLON CANCER. General Exam - General Exam Comments Initial Comments: PHYSICAL EXAM: General Impression: Lethargic, somnolent, arousable, mydriasis HEENT: Normocephalic atraumatic, extra-ocular movements intact, pupils equal and reactive to light bilaterally, mucous membranes moist. Cardiovascular: Heart regular rate and rhythm Chest: Able to complete full sentences, no retractions, no tachypnea Abdomen: abdomen soft, non-tender, non-distended, no organomegaly Musculoskeletal: Pulses present and equal in all extremities, no peripheral edema Motor: no focal deficits noted Neurological: CN II-XII grossly intact, no focal motor or sensory deficits noted Skin: Intact with no visualized rashes Limitations: no limitations Course Vital Signs 01/10/25 01/10/25 01/10/25 07:48 08:06 10:00 Temperature 96.8 F L Pulse Rate 92 73 Respiratory 17 18 Rate Blood Pressure 76/50 85/47 85/46 O2 Sat by Pulse 98 98 Oximetry 01/10/25 10:45 Temperature Pulse Rate Respiratory Rate Blood Pressure 103/57 O2 Sat by Pulse Oximetry - Reevaluation(s) Reevaluation #1: 01/10/25 10:50 Patient had a witnessed what son described as seizure episode. States that her seizures are what he describes subclinical diagnosed at [facility]. She follows up with neurologist locally and neurologist at [facility]. She takes Keppra. Sister at the bedside states that she has not missed any doses. Had an episode here in the emergency department that lasted for approximately 1 to 2 minutes. Patient does appear to be postictal at the bedside. Son states that she does not have obvious tonic-clonic aggressive appearing seizures. Given that there was suspicion that she had a seizure earlier today along with episode here in the ER clinical presentation consistent with status epilepticus. Do not have 24-hour EEG here in our facility. Reevaluation #2: 01/10/25 11:[address] Lew at [facility] ER states that they are not accepting transfers at this time due to over occupancy. EKG Findings - EKG Comments: EKG Findings:: My EKG interpretation: Ventricular rate 91, sinus rhythm, RI 164, QRS 104, QTc 408. No RI prolongation, no QTC prolongation, no ST or T-wave changes noted. Overall, this EKG is unremarkable Medical Decision Making - Medical Decision Making Was pt. sent in by a medical professional or institution (, PA, ORGAN GRINDER, urgent care, hospital, or shelter...) When possible be specific @ -No Did you speak to anyone other than the patient for history (EMS, parent, family, police, friend...)? What history was obtained from this source @ -No Did you review nursing and triage notes (agree or disagree)? Why? @ -I reviewed and agree with nursing and triage notes Were old charts reviewed (outside hosp., previous admission, EMS record, old EKG, old radiological studies, urgent care reports/EKG's, shelter records)? Report findings @ -No old charts were reviewed Differential Diagnosis (chest pain, altered mental status, abdominal pain women, abdominal pain men, vaginal bleeding, musculoskeletal, weakness, fever, dyspnea, syncope, headache, dizziness, GI bleed, back pain, seizure, CVA, palpat ations, mental health)? @ -Differential Seizure: Recurrent seizure disorder, febrile seizure, alcohol withdrawal, stimulants, meningitis, encephalitis, intercranial hemorrhage, intracranial tumor, stroke, eclampsia, thyrotoxicosis, hypocalcemia, hyponatremia, hypernatremia, hypomagnesemia, psychogenic, this is not meant to be an all-inclusive list. EKG interpreted by me (3pts min.). @ -See above X-rays interpreted by me (1pt min.). @ - CT interpreted by me (1pt min.). @ -CT abdomen/pelvis shows no acute process. Brain CT shows no acute processes U/S interpreted by me (1pt. min.). @ -None done What testing was considered but not performed or refused? (CT, X-rays, U/S, labs)? Why? @ -None What meds were considered but not given or refused? Why? @ -None Was smoking cessation discussed for >3mins.? @ -No Were there social determinants of health that impacted care today? How? (Suze elessness, low income, unemployed, alcoholism, drug addiction, transportation, low edu. Level, literacy, decrease access to med. care, alf, rehab)? @ -No Was there de-escalation of care discussed even if they declined (Discuss DNR or withdrawal of care, Hospice)? DNR status @ -No What co-morbidities impacted this encounter? (DM, HTN, Smoking, COPD, CAD, Cancer, CVA, ARF, Chemo, Hep., AIDS, mental health diagnosis, sleep apnea, morbid obesity)? @ -Seizure disorder Was patient admitted / discharged? Hospital course, mention meds given and route, prescriptions, significant lab abnormalities, going to OR and other pertinent info. @ -34-year-old female presents emergency department for altered mental status. EMS supervise history states initial call was for shortness of breath. Family at the bedside states that they think she had a seizure at home. Patient altered at the bedside. She has a history of seizure. Vital signs shows hypotension of 76/50. Patient blood pressure responding to fluids. Blood pressure improved after 2 L of fluid to 103/57. Laboratory evaluation obtained. CBC unremarkable. Metabolic panel shows lactic acidosis 10.8. Suspect that this is consistent with seizure. Urinalysis negative. Tox labs negative. Repeat lactic is 5.8. Initially patient was to be transferred to [facility] however [place] declined due to occupancy issues. Case discussed with our neurologist Dr. Covarrubias requested EEG performed. He reviewed EEG and no signs of status epilepticus. He did state that patient is amenable for admission to our facility. Case discussed with hospitalist for admission Did you discuss the management of the patient with other professionals (professionals i.e. , PA, ORGAN GRINDER, lab, RT, psych nurse, social work assistant, work order clerk, teacher, event security officer, case advocate)? Give summary @ -See above Was critical care preformed (if so, how long)? @ -Yes, 33 minutes for management of hypertension Undiagnosed new problem with uncertain prognosis? @ -No Drug Therapy requiring intensive monitoring for toxicity (Heparin, Nitro, Insulin, Cardizem)? @ -No Were any procedures done? @ -No Diagnosis/symptom? Acute, or Chronic, or Acute on Chronic? Uncomplicated (without systemic symptoms) or Complicated (systemic symptoms)? @ -Dehydration accompanied by hypotension, seizure Side effects of treatment? @ -No Exacerbation, Progression, or Severe Exacerbation? @ -No Poses a threat to life or bodily function? How? (Chest pain, USA, ND, pneumonia, PE, COPD, DKA, ARF, appy, cholecystitis, CVA, Diverticulitis, Homicidal, Suicidal, threat to staff... and all critical care pts) @ -yes - Lab Data Result diagrams: 01/10/25 07:53 01/10/25 07:53 Lab Results 01/10/25 01/10/25 01/10/25 Range/Units 07:53 07:53 07:53 WBC 10.54 H (4.50-10.00) 10*3/uL RBC 5.93 H (4.10-5.20) 10*6/uL Hgb 13.6 (12.0-15.0) g/dL Hct 47.7 H (37.2-46.3) % MCV 80.4 (80.0-97.0) fL MCH 22.9 L (27.0-32.0) pg MCHC 28.5 L (32.0-37.0) g/dL Plt Count 589 H (140-440) 10*3/uL MPV 10.3 (9.5-12.2) fL Immature Gran % (Auto) 1.0 % Neutrophils % [employer] Neutrophils % (Manual) 31 % Lymphocytes % [employer] Lymphocytes % (Manual) 59 % Monocytes % [employer] Monocytes % (Manual) 6 % Eosinophils % [employer] Eosinophils % (Manual) 3 % Basophils % [employer] Basophils % (Manual) 1 % Immature Gran # 0.11 H (0.00-0.04) 10*3/uL Neutrophils # [employer]ER Neutrophils # (Manual) 3.27 (1.3-7.7) k/uL Lymphocytes # [employer] Lymphocytes # (Manual) 6.22 H (1.0-4.8) k/uL Monocytes # [employer]ER Monocytes # (Manual) 0.63 (0-1.0) k/uL Eosinophils # [employer] Eosinophils # (Manual) 0.32 (0-0.7) k/uL Basophils # [employer]ER Basophils # (Manual) 0.11 (0-0.2) k/uL Nucleated RBCs 0 (0-0) /100 WBC Manual Slide Review Performed RBC Morphology Normal PT 10.4 (10.0-12.5) sec INR 0.9 (<1.2) APTT 19.8 L (22.0-30.0) sec Sodium (137-145) mmol/L Potassium (3.5-5.1) mmol/L Chloride (98-107) mmol/L Carbon Dioxide (22-30) mmol/L Anion Gap mmol/L BUN (7-17) mg/dL Creatinine (0.52-1.04) mg/dL Est GFR (CKD-EPI)AfAm (>60 ml/min/1.73 sqM) Est GFR (CKD-EPI)NonAf (>60 ml/min/1.73 sqM) Glucose (74-99) mg/dL POC Glucose (mg/dL) (70-110) mg/dL POC Glu Functional Skills Tutor ID Lactic Ac Sepsis Rflx Plasma Lactic Acid Hugo (0.7-2.0) mmol/L Calcium (8.4-10.2) mg/dL Magnesium (1.6-2.3) mg/dL Total Bilirubin (0.2-1.3) mg/dL AST (14-36) U/L ALT (4-34) U/L Alkaline Phosphatase (38-126) U/L Troponin I (0.000-0.034) ng/mL Total Protein (6.3-8.2) g/dL Albumin (3.5-5.0) g/dL Urine Color Colorless Urine Appearance Clear (Clear) Urine pH 6.0 (5.0-8.0) Ur Specific Christoval 1.012 (1.001-1.035) Urine Protein Negative (Negative) Urine Glucose (UA) Negative (Negative) Urine Ketones Negative (Negative) Urine Blood Negative (Negative) Urine Nitrite Negative (Negative) Urine Bilirubin Negative (Negative) Urine Urobilinogen <2.0 (<2.0) mg/dL Ur Leukocyte Esterase Negative (Negative) Salicylates mg/dL Urine Opiates Screen Detected H (NotDetected) Ur Oxycodone Screen Not Detected (NotDetected) Urine Methadone Screen Not Detected (NotDetected) Acetaminophen ug/mL Ur Barbiturates Screen Not Detected (NotDetected) U Tricyclic Antidepress Not Detected (NotDetected) Ur Phencyclidine Scrn Not Detected (NotDetected) Ur Amphetamines Screen Not Detected (NotDetected) U Methamphetamines Scrn Not Detected (NotDetected) U Benzodiazepines Scrn Not Detected (NotDetected) Urine Cocaine Screen Not Detected (NotDetected) U Marijuana (THC) Screen Not Detected (NotDetected) 01/10/25 01/10/25 01/10/25 Range/Units 07:53 07:53 07:53 WBC (4.50-10.00) 10*3/uL RBC (4.10-5.20) 10*6/uL Hgb (12.0-15.0) g/dL Hct (37.2-46.3) % MCV (80.0-97.0) fL MCH (27.0-32.0) pg MCHC (32.0-37.0) g/dL Plt Count (140-440) 10*3/uL MPV (9.5-12.2) fL Immature Gran % (Auto) % Neutrophils % Neutrophils % (Manual) % Lymphocytes % Lymphocytes % (Manual) % Monocytes % Monocytes % (Manual) % Eosinophils % Eosinophils % (Manual) % Basophils % Basophils % (Manual) % Immature Gran # (0.00-0.04) 10*3/uL Neutrophils # Neutrophils # (Manual) (1.3-7.7) k/uL Lymphocytes # Lymphocytes # (Manual) (1.0-4.8) k/uL Monocytes # Monocytes # (Manual) (0-1.0) k/uL Eosinophils # Eosinophils # (Manual) (0-0.7) k/uL Basophils # Basophils # (Manual) (0-0.2) k/uL Nucleated RBCs (0-0) /100 WBC Manual Slide Review RBC Morphology PT (10.0-12.5) sec INR (<1.2) APTT (22.0-30.0) sec Sodium 140 (137-145) mmol/L Potassium 4.4 (3.5-5.1) mmol/L Chloride 108 H (98-107) mmol/L Carbon Dioxide 11 L (22-30) mmol/L Anion Gap 21 mmol/L BUN 25 H (7-17) mg/dL Creatinine 0.96 (0.52-1.04) mg/dL Est GFR (CKD-EPI)AfAm 77 (>60 ml/min/1.73 sqM) Est GFR (CKD-EPI)NonAf 67 (>60 ml/min/1.73 sqM) Glucose 340 H (74-99) mg/dL POC Glucose (mg/dL) (70-110) mg/dL POC Glu Functional Skills Tutor ID Lactic Ac Sepsis Rflx Plasma Lactic Acid Hugo 10.8 H* (0.7-2.0) mmol/L Calcium 9.2 (8.4-10.2) mg/dL Magnesium 2.5 H (1.6-2.3) mg/dL Total Bilirubin 0.6 (0.2-1.3) mg/dL AST 43 H (14-36) U/L ALT 20 (4-34) U/L Alkaline Phosphatase 85 (38-126) U/L Troponin I <0.012 (0.000-0.034) ng/mL Total Protein 6.0 L (6.3-8.2) g/dL Albumin 3.5 (3.5-5.0) g/dL Urine Color Urine Appearance (Clear) Urine pH (5.0-8.0) Ur Specific Christoval (1.001-1.035) Urine Protein (Negative) Urine Glucose (UA) (Negative) Urine Ketones (Negative) Urine Blood (Negative) Urine Nitrite (Negative) Urine Bilirubin (Negative) Urine Urobilinogen (<2.0) mg/dL Ur Leukocyte Esterase (Negative) Salicylates <1.0 mg/dL Urine Opiates Screen (NotDetected) Ur Oxycodone Screen (NotDetected) Urine Methadone Screen (NotDetected) Acetaminophen <10.0 ug/mL Ur Barbiturates Screen (NotDetected) U Tricyclic Antidepress (NotDetected) Ur Phencyclidine Scrn (NotDetected) Ur Amphetamines Screen (NotDetected) U Methamphetamines Scrn (NotDetected) U Benzodiazepines Scrn (NotDetected) Urine Cocaine Screen (NotDetected) U Marijuana (THC) Screen (NotDetected) 01/10/25 01/10/25 01/10/25 Range/Units 07:55 08:40 10:27 WBC (4.50-10.00) 10*3/uL RBC (4.10-5.20) 10*6/uL Hgb (12.0-15.0) g/dL Hct (37.2-46.3) % MCV (80.0-97.0) fL MCH (27.0-32.0) pg MCHC (32.0-37.0) g/dL Plt Count (140-440) 10*3/uL MPV (9.5-12.2) fL Immature Gran % (Auto) % Neutrophils % Neutrophils % (Manual) % Lymphocytes % Lymphocytes % (Manual) % Monocytes % Monocytes % (Manual) % Eosinophils % Eosinophils % (Manual) % Basophils % Basophils % (Manual) % Immature Gran # (0.00-0.04) 10*3/uL Neutrophils # Neutrophils # (Manual) (1.3-7.7) k/uL Lymphocytes # Lymphocytes # (Manual) (1.0-4.8) k/uL Monocytes # Monocytes # (Manual) (0-1.0) k/uL Eosinophils # Eosinophils # (Manual) (0-0.7) k/uL Basophils # Basophils # (Manual) (0-0.2) k/uL Nucleated RBCs (0-0) /100 WBC Manual Slide Review RBC Morphology PT (10.0-12.5) sec INR (<1.2) APTT (22.0-30.0) sec Sodium (137-145) mmol/L Potassium (3.5-5.1) mmol/L Chloride (98-107) mmol/L Carbon Dioxide (22-30) mmol/L Anion Gap mmol/L BUN (7-17) mg/dL Creatinine (0.52-1.04) mg/dL Est GFR (CKD-EPI)AfAm (>60 ml/min/1.73 sqM) Est GFR (CKD-EPI)NonAf (>60 ml/min/1.73 sqM) Glucose (74-99) mg/dL POC Glucose (mg/dL) 345 H (70-110) mg/dL POC Glu Functional Skills Tutor ID Altimnemesio Villegas Lactic Ac Sepsis Rflx Y Plasma Lactic Acid Hugo 5.8 H* (0.7-2.0) mmol/L Calcium (8.4-10.2) mg/dL Magnesium (1.6-2.3) mg/dL Total Bilirubin (0.2-1.3) mg/dL AST (14-36) U/L ALT (4-34) U/L Alkaline Phosphatase (38-126) U/L Troponin I (0.000-0.034) ng/mL Total Protein (6.3-8.2) g/dL Albumin (3.5-5.0) g/dL Urine Color Urine Appearance (Clear) Urine pH (5.0-8.0) Ur Specific Christoval (1.001-1.035) Urine Protein (Negative) Urine Glucose (UA) (Negative) Urine Ketones (Negative) Urine Blood (Negative) Urine Nitrite (Negative) Urine Bilirubin (Negative) Urine Urobilinogen (<2.0) mg/dL Ur Leukocyte Esterase (Negative) Salicylates mg/dL Urine Opiates Screen (NotDetected) Ur Oxycodone Screen (NotDetected) Urine Methadone Screen (NotDetected) Acetaminophen ug/mL Ur Barbiturates Screen (NotDetected) U Tricyclic Antidepress (NotDetected) Ur Phencyclidine Scrn (NotDetected) Ur Amphetamines Screen (NotDetected) U Methamphetamines Scrn (NotDetected) U Benzodiazepines Scrn (NotDetected) Urine Cocaine Screen (NotDetected) U Marijuana (THC) Screen (NotDetected) Disposition Clinical Impression: Hypotension Disposition: ADMITTED IP TO THIS HOSP Condition: Fair Referrals: Jasiel Meléndez MD [Primary Care Provider] - 1-2 days Decision Time: 12:23
[2025-01-10] MEDS: SODIUM CHLORIDE 0.9% 1,000 ML IV STA ×2 (08:16→10:26)
[2025-01-10 08:28] LABS: Appearance,Urine Clear (Clear); Bilirubin,Urine Negative (Negative); Blood,Urine Negative (Negative); Color,Urine Colorless; Glucose,Urine (UA) Negative (Negative); Ketones,Urine Negative (Negative); Leukocyte Esterase,Urine Negative (Negative); Nitrite,Urine Negative (Negative); Protein,Urine Negative (Negative); Specific Gravity,Urine 1.012 (1.001-1.035); Urobilinogen,Urine <2.0 mg/dL (<2.0)
[2025-01-10 08:31] LABS: ALT 20 U/L (4-34); Acetaminophen <10.0 ug/mL; African American GFR (CKD) 77 (>60 ml/min/1.73 sqM); Albumin 3.5 g/dL (3.5-5.0); Anion Gap 21 mmol/L; Blood Urea Nitrogen 25 mg/dL (7-17); Calcium 9.2 mg/dL (8.4-10.2); Carbon Dioxide 11 mmol/L (22-30); Chloride 108 mmol/L (98-107); Glucose 340 mg/dL (74-99); Non-African American GFR(CKD) 67 (>60 ml/min/1.73 sqM); Salicylate <1.0 mg/dL; Sodium 140 mmol/L (137-145); Total Bilirubin 0.6 mg/dL (0.2-1.3)
[2025-01-10 08:36] LABS: AST 43 U/L (14-36); Alkaline Phosphatase 85 U/L (38-126); Magnesium 2.5 mg/dL (1.6-2.3); Potassium 4.4 mmol/L (3.5-5.1)
[2025-01-10 08:37] LABS: INR 0.9 (<1.2)
[2025-01-10 08:38] LABS: Prothrombin Time 10.4 sec (10.0-12.5)
[2025-01-10 08:54] LABS: Amphetamine Screen,Urine Not Detected (NotDetected); Barbiturate Screen,Urine Not Detected (NotDetected); Benzodiazepines Screen,Urine Not Detected (NotDetected); Cocaine Screen,Urine Not Detected (NotDetected); Methadone Screen, Urine Not Detected (NotDetected); Opiate Screen,Urine Detected (NotDetected); Oxycodone Screen, Urine Not Detected (NotDetected); Phencyclidine Screen,Urine Not Detected (NotDetected); Tricyclic Antidepressant,Urine Not Detected (NotDetected); Urn Cannabinoid Scrn Not Detected (NotDetected)
[2025-01-10 09:05] LABS: Partial Thromboplastin Time 19.8 sec (22.0-30.0)
--- NOTE | 2025-01-10 09:27 | CT ---
EXAMINATION TYPE: CT brain wo con DATE OF EXAM: 01/10/2025 9:05 AM COMPARISON: None. CLINICAL INDICATION: Female, 54 years old with history of ams, confusion, Seizure, found unresponsive in basement. Abdominal tenderness. TECHNIQUE: Examination was done in axial plane without intravenous contrast. Coronal and sagittal r econstructions performed. CT DLP: 1112.4 mGycm, Automated exposure control for dose reduction was used. FINDINGS: There is no evidence of acute intracranial hemorrhage, acute ischemic changes, mass, mass-effect, or extra-axial fluid collection. There is no effacement of cerebral sulci or basal subarachnoid cister ns. There is no hydrocephalus. There is no midline shift. Singh-white matter distinction is preserv ed. Partially empty sella. While there is 6 mm of cerebellar tonsillar ectopia, no beaklike configuration to the tonsils. Leftward nasal septal deviation. Trace air-fluid level left maxillary sinus. There may be previous fe ss. Mastoid air cells are well pneumatized. Orbits and globes are intact. IMPRESSION: 1. 6 mm of cerebellar tonsillar ectopia unclear clinical significance. There is no vamsi tonsillar be aking which is generally seen with Chiari I malformation. Correlate for any chronic symptoms. 2. Small air-fluid level left maxillary sinus may reflect acute sinusitis. 3. Otherwise, no acute intracranial abnormality seen. [facility], , 01/10/2025 9:25 AM
--- NOTE | 2025-01-10 09:37 | CT ---
EXAMINATION TYPE: CT abdomen pelvis w con DATE OF EXAM: 01/10/2025 9:06 AM COMPARISON: 09/26/2024 CLINICAL INDICATION: Female, 54 years old with history of abdominal pain; Seizure, found unresponsive in basement. Abdominal tenderness. TECHNIQUE: CT of the abdomen and pelvis after administration of IV contrast. Delayed images through t he kidneys and sagittal and coronal reformats were created on a separate workstation. Contrast used:100 ml mL of Isovue 300 with IV Contrast, Oral contrast used: without Oral Contrast CT DLP: 3192.3 mGycm, Automated exposure control for dose reduction was used. FINDINGS: Heart mildly enlarged. LAD coronary artery calcifications are present. Prominent hazy densities in th e lower lungs likely atelectasis. Additional patchy groundglass changes lung bases. Postsurgical change of sleeve gastrectomy. There appears to be a small hiatal hernia and fluid within the distal esophagus. There is large body habitus causing artifacts and limiting detailed assessment . There may be some mild fold thickening at the antrum of the stomach, axial image 35. 8mm inferior right liver lobe cyst. Calcified granuloma central left liver lobe. Bile duct dilated at 9 mm. There also appears to be mild prominence to the intrahepatic biliary syste m. Cholecystectomy clips. Portal venous system is patent. Adrenal glands, right kidney, and pancreas within normal limits. There is a 1.4 cm cyst lower pole left kidney. A couple punctate 2 mm stones lower pole left kidney. Otherwise, symmetric uptake of contrast both ki dneys but no excretion on the delayed phase. Correlate with kidney function to exclude acute kidney i njury. Left abdominal jejunal fold thickening and scattered fluid-filled small bowel loops throughout. No ab normal dilatation is seen. Possible trace free fluid right lower quadrant. No free air. Additional prominent mixed fatty and liquid stool throughout the colon. Surgical material related to prior appendectomy. No pericolonic inflammatory changes. No mesenteric or retroperitoneal adenopathy. Bladder is collapsed. Cortez catheter looped within the collapsed bladder. Tiny pelvic phleboliths. Ut erus surgically absent. Possible visualization of the right ovary. Left ovary not clearly seen. No pe lvic adenopathy. Bones: Mild degenerative changes of hips. Severe spondylitic change throughout the lumbar spine and m oderate to severe degenerative disc disease lower thoracic spine. IMPRESSION: 1. Patient status post sleeve gastrectomy but with a small hiatal hernia and fluid in the distal eso phagus suggesting gastroesophageal reflux. 2. Mild fold thickening of the antrum of stomach, scattered left-sided jejunal fold thickening, and p rominent fluid-filled small bowel loops throughout. Liquid stool is also present. Correlate for gastr oenteritis. 3. There seems to be trace free fluid at the right lower quadrant. Possibly reactive to the above gas troenteritis. Patient status post appendectomy. 4. Some patchy groundglass changes in lower lungs could relate to hazy atelectasis. Correlate to excl ude any symptoms of aspiration or early pneumonitis. [facility], , 01/10/2025 9:35 AM
[2025-01-10 09:53] LABS: Basophils # (M) 0.11 k/uL (0-0.2); Eosinophils # (M) 0.32 k/uL (0-0.7); Lymphocytes # (M) 6.22 k/uL (1.0-4.8); Monocytes # (M) 0.63 k/uL (0-1.0); Neutrophils # (M) 3.27 k/uL (1.3-7.7); Neutrophils % (M) 31 %; Nucleated Red Blood Cells 0 /100 WBC (0-0); RBC Morphology Normal; Total Cells Counted 100
[2025-01-10] MEDS ORDERED: VANCOMYCIN IV PER PHARMACY 1 EACH MISC MISCELLANE PRN (10:48)
[2025-01-10] MEDS: levETIRAcetam IV 500 MG/5 ML VIAL IVP STA (11:15)
[2025-01-10] MEDS: CEFEPIME 2 GM in SODIUM CHLORIDE 0.9% 100 ML IVPB STA (11:16)
[2025-01-10] MEDS ORDERED: NALOXONE 0.4 MG/ML 1 ML VIAL IV PRN (12:18)
[2025-01-10] MEDS: VANCOMYCIN 2,000 MG in SODIUM CHLORIDE 0.9% 500 ML 500 ML IVPB STA (12:36)
[2025-01-10] MEDS: SODIUM CHLORIDE 0.9% 1,000 ML IV SCH (12:37)
--- NOTE | 2025-01-10 13:18 | XR ---
EXAMINATION TYPE: XR chest 1V portable DATE OF EXAM: 01/10/2025 12:52 PM COMPARISON: 08/10/2019 CLINICAL INDICATION: Female, 54 years old with history of hypotension, TECHNIQUE: XR chest 1V portable view(s) obtained. FINDINGS: The heart size is normal. The pulmonary vasculature is normal. The lungs are clear. IMPRESSION: 1. No acute pulmonary process. [facility], , 01/10/2025 1:16 PM
--- NOTE | 2025-01-10 15:15 | P.CNNES ---
History of Present Illness Consult date: 01/10/25 Requesting physician: Alexsander Nugent Reason for Consult: Seizure History of Present Illness: Patient is a 54-year-old right-handed female, who has been diagnosed with epilepsy at [facility], came to the hospital by ambulance today at 7:47 AM with breakthrough seizure. Patient's sister and older son were present by the bedside. They were able to provide history. Patient has longstanding history of "spells". They used to follow with [place] [facility] for the last 4 years, but was diagnosed with epilepsy 2 years ago at [facility] after she underwent some testing. She has been on Keppra, and most recently her dose is 750 mg twice daily. Patient's sister mentions that she used to have seizures almost daily before she was put on Keppra and since then she has been having it about once a week. She does not drive. She takes medication regularly, does not miss the dose. Her seizure consist of rapid blinking and tremoring of her hands lasting for about couple minutes. She is postictal and wants to sleep for 3 hours, although the tiredness may last for 1 to 2 days. They mentioned that patient's last seizure was on last 01/06/2025. Prior to that was on 12/29/2024. Patient states that she remembers having a seizure in March 2024 and then she was seizure-free until October 2024 and since then she had about 5-6 more seizures. Patient usually wakes up late, although she may wake up middle of the night to go to the bathroom. This morning she went to the bathroom and then called her 4-year-old adopted child that she was feeling sick to get her sister down. Her sister came down at 6:32 AM in the bathroom and she was having her spell of seizure. This consist of rapid blinking and hand tremoring that lasted for 2 minutes. She said that she could not feel her legs and her words started slurring. She was not answering to questions. Just before 7 EMS arrived and she had another seizure in the ER. Each seizure lasted for about 2 minutes. As per EMS flowsheet when they arrived, patient was lethargic and weak. Family stated that they found the patient in bathroom and she is unable to get up from the toilet. Patient was alert but very slow to respond. She was pale and diaphoretic. Patient stated that she may have had a seizure but is unsure. Family was helping hold her on the toilet as she has no strength at all. She was becoming more lethargic patient responses were getting slower. She was placed on oxygen as her O2 was in upper 70s. Her blood glucose was 356. Patient's vitals at the scene was blood pressure 172/121, pulse rate 78, respir ation 14, saturation 84%. Her vitals were blood pressure was low 76/50, repeat was 85/47 and then 85/46. Pulse rate 92 temperature 96.8. Blood test showed WBC 10.54 hemoglobin 13.6, platelets 589. PT PTT normal, electrolytes normal, BUN 25 creatinine 0.96. Lactate was 10.8. AST 43, ALT 20. Troponin negative. UA is negative, urine drug screen positive for opiate. EKG showed sinus rhythm. CT head revealed 6 mm of cerebellar tonsillar ectopia unclear clinical significance. There is no vamsi tonsillar beaking which is generally seen with Chiari I malformation. Correlate for any chronic symptoms. Small air-fluid level left maxillary sinus, may reflect acute sinusitis. I personally reviewed CT head, agree with the findings. Chest x-ray showed no acute pulmonary process. CT of abdomen pelvis revealed patient status post sleeve gastrectomy but with small hiatal hernia. Some GERD. Mild fold thickening of the antrum of stomach, scattered left-sided jejunal fold thickening and prominent fluid-filled small bowel loops throughout. Correlate for gastroenteritis. There seems to be trace free fluid at the right lower quadrant. Patient's sister mentions that patient has been more forgetful lately, and is getting worse. She writes down everything otherwise she forgets. She has taken her medications last night. She did undergo colonoscopy last week. Patient denies history of tobacco, alcohol use or marijuana. She does have history of diabetes, but is in remission since she underwent bariatric surgery and lost weight. She has hypertension. Review of Systems All pertinent positive and negative review of systems mentioned in the HPI. Otherwise unremarkable. Past Medical History Past Medical History: Hypertension, Seizure Disorder Additional Past Medical History / Comment(s): kidney stones, MIGRAINE HEADACHES, NEUROPATHY, epilepsy - absence seizures since 2022, most recent seizure October 2024 History of Any Multi-Drug Resistant Organisms: None Reported Past Surgical History: Bariatric Surgery, Hysterectomy, Joint Replacement Additional Past Surgical History / Comment(s): Lt. TKA, Rt TKA x 2, LEFT ANKLE SURGERY, RIGHT HEEL SURGERY , RIGHT ROTATOR CUFF SURGERY X2, D&C, LAP BAND SURGERY, REMOVAL OF LAP BAND, GASTRIC SLEEVE, LT SHOULDER ARTHROSCOPIC SURGERY X2, Bilat. shoulder replacements Past Anesthesia/Blood Transfusion Reactions: No Reported Reaction Past Psychological History: Anxiety, Depression Smoking Status: Never smoker Past Alcohol Use History: Occasional Past Drug Use History: None Reported - Past Family History Mother Family Medical History: Cancer Additional Family Medical History / Comment(s): LIVER CANCER. Father Family Medical History: Cancer Additional Family Medical History / Comment(s): COLON CANCER. Medications and Allergies Home Medications Medication Instructions Recorded Confirmed Type Hydrocodone/Acetaminophen [[place] 1 tab PO QID PRN 04/04/15 01/10/25 History 10-325] Metoprolol Tartrate [Lopressor] 50 mg PO BID 04/04/15 01/10/25 History amLODIPine [Norvasc] 10 mg PO HS 04/04/15 01/10/25 History lisinopriL [Zestril] 40 mg PO HS 04/04/15 01/10/25 History Gabapentin [Neurontin] 100 mg PO DAILY 03/12/16 01/10/25 History DULoxetine HCL [Cymbalta] 60 mg PO BID 11/09/19 01/10/25 History Naproxen 500 mg PO BID PRN 11/04/21 01/10/25 History Omeprazole 20 mg PO DAILY 03/24/22 01/10/25 History Gabapentin [Neurontin] 400 mg PO HS 05/31/22 01/10/25 History Cetirizine HCl [Zyrtec] 10 mg PO DAILY 11/14/23 01/10/25 History bisacodyL [Dulcolax] 5 mg PO DAILY 11/14/23 01/10/25 History Solifenacin Succinate [Vesicare] 10 mg PO HS 01/10/25 01/10/25 History levETIRAcetam [Keppra] 750 mg PO BID 01/10/25 01/10/25 History Allergies Allergy/AdvReac Type Severity Reaction Status Date / Time No Known Allergies Allergy Verified 01/10/25 14:23 Physical Examination - Vital Signs Vital Signs: Vital Signs Temp Pulse Resp BP Pulse Ox 01/10/25 12:38 68 17 93/55 98 01/10/25 10:45 103/57 01/10/25 10:00 73 18 85/46 98 01/10/25 08:06 85/47 01/10/25 07:48 96.8 F L 92 17 76/50 98 Intake and Output 01/09/25 01/10/25 01/10/25 22:59 06:59 14:59 Other: Weight 124.738 kg Patient is a middle-aged female, who appears slightly groggy, slightly postictal. Patient does become alert awake oriented to time place and person. She knows it is December 2024 and that she is in [facility]. Speech and language functions are normal. Patient can name and repeat very well. No aphasia or dysarthria. Attention, concentration and fund of knowledge is adequate. On cranial nerve examination, pupils are equal, round and reacting to light, visual bobo are full on confrontation, with no neglect on double simultaneous stimulation. Extraocular muscles are intact with no nystagmus. Face is symmetric, tongue protrudes to the midline. Palatal elevation and sensation normal, hearing and shoulder shrug normal, facial sensation normal. Patient is edentulous. On muscle strength testing, there is no pronator drift and the strength is normal in arms and legs distally and proximally. Deltoids not checked because of her previous surgery. Patient does have evidence of previous bilateral knee surgeries. Deep tendon reflexes are symmetric 1+ at the biceps and brachioradialis, absent at the knees from previous surgery and plantars downgoing. Sensory to touch is equal with no neglect on double simultaneous stimulation. Cerebellar function showed no ataxia for [id number] testing. No dysdiadochokinesia. No ataxia for [id number] testing on either side. Tone and bulk of muscles normal. Gait deferred.. On general examination, there is no carotid bruit or murmur, S1-S2 audible. Chest is clear on consultation. Abdomen is soft nontender. No organomegaly, bowel sounds present. Peripheral pulses are present. No peripheral edema. Results - Laboratory Findings CBC and BMP: 01/10/25 07:53 01/10/25 07:53 Abnormal Lab Findings: Abnormal Labs 01/10/25 01/10/25 01/10/25 07:53 07:53 07:53 WBC 10.54 H RBC 5.93 H Hct 47.7 H MCH 22.9 L MCHC 28.5 L Plt Count 589 H Immature Gran # 0.11 H Lymphocytes # (Manual) 6.22 H APTT 19.8 L Chloride Carbon Dioxide BUN Glucose POC Glucose (mg/dL) Plasma Lactic Acid Hugo Magnesium AST Total Protein Urine Opiates Screen Detected H 01/10/25 01/10/25 01/10/25 07:53 07:53 07:55 WBC RBC Hct MCH MCHC Plt Count Immature Gran # Lymphocytes # (Manual) APTT Chloride 108 H Carbon Dioxide 11 L BUN 25 H Glucose 340 H POC Glucose (mg/dL) 345 H Plasma Lactic Acid Hugo 10.8 H* Magnesium 2.5 H AST 43 H Total Protein 6.0 L Urine Opiates Screen 01/10/25 10:27 WBC RBC Hct MCH MCHC Plt Count Immature Gran # Lymphocytes # (Manual) APTT Chloride Carbon Dioxide BUN Glucose POC Glucose (mg/dL) Plasma Lactic Acid Hugo 5.8 H* Magnesium AST Total Protein Urine Opiates Screen Assessment and Plan Assessment: * Breakthrough seizure in the patient diagnosed with epilepsy at [facility]. * Transient hypotension, unclear cause. * Obesity * Diabetes, in remission * Hypertension * History of bariatric surgery Plan: * EEG was performed today, which was abnormal due to presence of mixed frequencies suggestive of mild encephalopathy or medication effect. No epileptiform activity was seen. No electrographic seizure was recorded. * Patient has been on Keppra 750 mg twice daily. We will increase the dose to 1000 mg twice daily. * Recommend patient follow-up with her neurologist outpatient. * We will observe overnight. If remains stable, can be potentially discharge in the morning. * Patient is aware of [place] state law of no driving unless seizure-free for 6 months, climbing ladders, operating dangerous machinery or unsupervised swimming. * Thank you for the consult. Time with Patient: Greater than 30
[2025-01-10 15:17] LABS: VBG PH 7.31 (7.31-7.41)
--- NOTE | 2025-01-10 17:10 | P.HPIM ---
History of Present Illness H&P Date: 01/10/25 History of present illness: 54-year-old female with past medical history significant for seizure disorder, follows at [facility] was brought to the ED ER for altered mental status after breakthrough seizure. Patient sister and older son present at the bedside. Patient currently lethargic and confused. Family reported that patient has long history of spells, patient was following at [place] [facility] for the last 4 years, was diagnosed with epilepsy 2 years ago at [facility], mo ent has been on Keppra, most recently her dose was 7 to 15 mg twice daily. Patient sister reported that patient used to have seizures almost daily before she was put on Keppra and since then she would have 1 seizure about a week, patient does not drive. Patient has been compliant with medications. Patient seizure consist of rapid blinking and tremoring of her hands lasting for couple of minutes. Patient is usually lethargic after seizures, remains sleepy, tiredness may last for 1 to 2 days. Family reported last seizure on 01/06/2025. Patient is afebrile, heart rate 68, respiratory 17, blood pressure 93/55, saturating 98% on 3 L. WBCs 10.5 hemoglobin 13.6 platelet 589. INR 0.9. VBG showed pH 7.31 [id number] HCO3 17. Sodium 140 potassium 4.4 chloride 108 CO2 11 BUN 25 creatinine 0.96. Lactate initially was 10.8, trended down to 2.3. UA unremarkable. Urine drug screen detected opiates. CT abdomen pelvis showed status post sleeve gastrectomy, changes suggestive of GERD and gastroenteritis, reactive right lower quadrant trace free fluid, patchy groundglass changes in lower lungs likely is a atelectasis. CT head negative for any acute process, showed 6 mm cerebellar tonsillar ectopia unclear clinical significance. Assessment and plan: Seizure disorder: Breakthrough seizure: Patient has history of epilepsy, diagnosed at [facility] 2 years ago, currently on Keppra 750 mg twice daily, presented with lethargy and altered mental status after breakthrough seizures. EEG performed in the ED showed mild encephalopathy, no epileptiform activity. No electrographic seizure was recorded. Neurology consultedincrease Keppra to 1000 mg twice daily Seizure precautions Neurology recommended to observe overnight, potentially discharge in the morning. Lactic acidosis: Secondary to above No sign or symptom of infection, doubt sepsis Continue IV fluids. Diabetes: In remission Hypertension History of bariatric surgery DVT prophylaxis Subcutaneous heparin Monitor vital signs and labs Labs and medication were reviewed. Continue same treatment. Further recommendations as per clinical course of the patient PHYSICAL EXAMINATION: GENERAL: The patient is A&O x3, NAD HEENT: EOMI, Sclerae anicteric, Moist Mucous membranes Neck: Supple, Non tender, No JVD PULMONARY: Equal breath souds B/L, No wheezing, No crackles. CARDIOVASCULAR: S1, S2 present. No murmurs, rubs, or gallops. ABDOMEN: Soft, nontender, nondistended, normoactive bowel sounds. No guarding or rebound tenderness. MUSCULOSKELETAL: No edema, No cyanosis. No clubbing. Normal ROM. Intact peripheral pulses. NEUROLOGICAL: CN 2-12 grossly intact. No FND REVIEW OF SYSTEMS: CONSTITUTIONAL: Complains of fatigue and sleepiness. HEENT: No recent visual problems or hearing problems. Denied any sore throat. CARDIOVASCULAR: No chest pain, orthopnea, PND, no palpitations, no syncope. PULMONARY: No shortness of breath, no cough, no hemoptysis. GASTROINTESTINAL: No diarrhea, no nausea, no vomiting, no abdominal pain. NEUROLOGICAL: No headaches, no weakness, no numbness. HEMATOLOGICAL: Denies any bleeding or petechiae. GENITOURINARY: Denies any burning micturition, frequency, or urgency. MUSCULOSKELETAL/RHEUMATOLOGICAL: Denies any joint pain, swelling, or any muscle pain. ENDOCRINE: Denies any polyuria or polydipsia. The rest of the 14-point review of systems is negative. Dictation was produced using [employer] dictation software. please excuse any grammatical, word or spelling errors. Past Medical History Past Medical History: Hypertension, Seizure Disorder Additional Past Medical History / Comment(s): kidney stones, MIGRAINE HEADACHES, NEUROPATHY, epilepsy - absence seizures since 2022, most recent seizure October 2024 History of Any Multi-Drug Resistant Organisms: None Reported Past Surgical History: Bariatric Surgery, Hysterectomy, Joint Replacement Additional Past Surgical History / Comment(s): Lt. TKA, Rt TKA x 2, LEFT ANKLE SURGERY, RIGHT HEEL SURGERY , RIGHT ROTATOR CUFF SURGERY X2, D&C, LAP BAND SURGERY, REMOVAL OF LAP BAND, GASTRIC SLEEVE, LT SHOULDER ARTHROSCOPIC SURGERY X2, Bilat. shoulder replacements Past Anesthesia/Blood Transfusion Reactions: No Reported Reaction Past Psychological History: Anxiety, Depression Smoking Status: Never smoker Past Alcohol Use History: Occasional Past Drug Use History: None Reported - Past Family History Mother Family Medical History: Cancer Additional Family Medical History / Comment(s): LIVER CANCER. Father Family Medical History: Cancer Additional Family Medical History / Comment(s): COLON CANCER. Medications and Allergies Home Medications Medication Instructions Recorded Confirmed Type Hydrocodone/Acetaminophen [[place] 1 tab PO QID PRN 04/04/15 01/10/25 History 10-325] Metoprolol Tartrate [Lopressor] 50 mg PO BID 04/04/15 01/10/25 History amLODIPine [Norvasc] 10 mg PO HS 04/04/15 01/10/25 History lisinopriL [Zestril] 40 mg PO HS 04/04/15 01/10/25 History Gabapentin [Neurontin] 100 mg PO DAILY 03/12/16 01/10/25 History DULoxetine HCL [Cymbalta] 60 mg PO BID 11/09/19 01/10/25 History Naproxen 500 mg PO BID PRN 11/04/21 01/10/25 History Omeprazole 20 mg PO DAILY 03/24/22 01/10/25 History Gabapentin [Neurontin] 400 mg PO HS 05/31/22 01/10/25 History Cetirizine HCl [Zyrtec] 10 mg PO DAILY 11/14/23 01/10/25 History bisacodyL [Dulcolax] 5 mg PO DAILY 11/14/23 01/10/25 History Solifenacin Succinate [Vesicare] 10 mg PO HS 01/10/25 01/10/25 History levETIRAcetam [Keppra] 750 mg PO BID 01/10/25 01/10/25 History Allergies Allergy/AdvReac Type Severity Reaction Status Date / Time No Known Allergies Allergy Verified 01/10/25 14:23 Physical Exam Vitals: Vital Signs Temp Pulse Resp BP Pulse Ox 01/10/25 12:38 68 17 93/55 98 01/10/25 10:45 103/57 01/10/25 10:00 73 18 85/46 98 01/10/25 08:06 85/47 01/10/25 07:48 96.8 F L 92 17 76/50 98 Intake and Output 06/26/25 06/26/25 06/26/25 06:59 14:59 22:59 Other: Weight 124.738 kg Results CBC & Chem 7: 01/10/25 07:53 01/10/25 07:53 Labs: Abnormal Lab Results - Last 24 Hours (Table) 01/10/25 01/10/25 01/10/25 Range/Units 07:53 07:53 07:53 WBC 10.54 H (4.50-10.00) 10*3/uL RBC 5.93 H (4.10-5.20) 10*6/uL Hct 47.7 H (37.2-46.3) % MCH 22.9 L (27.0-32.0) pg MCHC 28.5 L (32.0-37.0) g/dL Plt Count 589 H (140-440) 10*3/uL Immature Gran # 0.11 H (0.00-0.04) 10*3/uL Lymphocytes # (Manual) 6.22 H (1.0-4.8) k/uL APTT 19.8 L (22.0-30.0) sec VBG pCO2 (37-51) mmHg VBG HCO3 (24-28) mmol/L Chloride (98-107) mmol/L Carbon Dioxide (22-30) mmol/L BUN (7-17) mg/dL Glucose (74-99) mg/dL POC Glucose (mg/dL) (70-110) mg/dL Plasma Lactic Acid Hugo (0.7-2.0) mmol/L Magnesium (1.6-2.3) mg/dL AST (14-36) U/L Total Protein (6.3-8.2) g/dL Urine Opiates Screen Detected H (NotDetected) 01/10/25 01/10/25 01/10/25 Range/Units 07:53 07:53 07:55 WBC (4.50-10.00) 10*3/uL RBC (4.10-5.20) 10*6/uL Hct (37.2-46.3) % MCH (27.0-32.0) pg MCHC (32.0-37.0) g/dL Plt Count (140-440) 10*3/uL Immature Gran # (0.00-0.04) 10*3/uL Lymphocytes # (Manual) (1.0-4.8) k/uL APTT (22.0-30.0) sec VBG pCO2 (37-51) mmHg VBG HCO3 (24-28) mmol/L Chloride 108 H (98-107) mmol/L Carbon Dioxide 11 L (22-30) mmol/L BUN 25 H (7-17) mg/dL Glucose 340 H (74-99) mg/dL POC Glucose (mg/dL) 345 H (70-110) mg/dL Plasma Lactic Acid Hugo 10.8 H* (0.7-2.0) mmol/L Magnesium 2.5 H (1.6-2.3) mg/dL AST 43 H (14-36) U/L Total Protein 6.0 L (6.3-8.2) g/dL Urine Opiates Screen (NotDetected) 01/10/25 01/10/25 01/10/25 Range/Units 10:27 15:01 15:01 WBC (4.50-10.00) 10*3/uL RBC (4.10-5.20) 10*6/uL Hct (37.2-46.3) % MCH (27.0-32.0) pg MCHC (32.0-37.0) g/dL Plt Count (140-440) 10*3/uL Immature Gran # (0.00-0.04) 10*3/uL Lymphocytes # (Manual) (1.0-4.8) k/uL APTT (22.0-30.0) sec VBG pCO2 35 L (37-51) mmHg VBG HCO3 17 L (24-28) mmol/L Chloride (98-107) mmol/L Carbon Dioxide (22-30) mmol/L BUN (7-17) mg/dL Glucose (74-99) mg/dL POC Glucose (mg/dL) (70-110) mg/dL Plasma Lactic Acid Hugo 5.8 H* 2.3 H* (0.7-2.0) mmol/L Magnesium (1.6-2.3) mg/dL AST (14-36) U/L Total Protein (6.3-8.2) g/dL Urine Opiates Screen (NotDetected)
[2025-01-10] MEDS: TROSPIUM CHLORIDE 20 MG TABLET PO SCH (20:22)
[2025-01-10] MEDS: DULoxetine HCL 60 MG CAPSULE.DR PO SCH (20:22)
[2025-01-10] MEDS: GABAPENTIN 400 MG CAP PO SCH (20:22)
[2025-01-10] MEDS: METOPROLOL TARTRATE 50 MG TAB PO SCH (20:22)
[2025-01-10] MEDS: levETIRAcetam IV 500 MG/5 ML VIAL IVP SCH (20:23)
[2025-01-10] MEDS: HYDROcodone/APAP 10-325MG 1 EACH TAB PO PRN (22:17)
[2025-01-10] MEDS: HEPARIN SODIUM,PORCINE 5,000 UNIT/ML 1 ML VIAL SQ SCH (22:31)
--- NOTE | 2025-01-10 23:12 | EEG ---
ELECTROENCEPHALOGRAM REPORT PREAMBLE: This is a 54-year-old female came to the hospital with altered mental status. The patient has history of seizure disorder. EEG FINDINGS: This is a 21-channel digital EEG recorded with video component, utilizing 10/20 international system with referential and bipolar montages. Background consists of moderately well-developed and regulated, mixed frequencies of low amplitude 6-7 hertz theta, intermixed with some alpha and some fast frequency beta activity seen in bihemispheric region. Background is posterior dominant and seems to be very minimally reactive to eye opening or closing. Photic driving response was not seen. Some drowsiness was seen with presence of symmetric theta frequency rhythm. Deeper stages of sleep were not seen. No focal or generalized epileptiform activity was seen. IMPRESSION: This is an abnormal EEG due to presence of mixed frequencies activity seen in bihemispheric region. This is suggestive of mild generalized cerebral dysfunction as can be seen with encephalopathy or medication effect. No epileptiform activity was seen. No electrographic seizure was recorded. MMODL / IJN: [id number] / [facility] CENTERAmado
[2025-01-11] MEDS: VANCOMYCIN 2,000 MG in SODIUM CHLORIDE 0.9% 500 ML 500 ML IVPB SCH (05:39)
[2025-01-11] MEDS: bisacodyL 5 MG TABLET.DR PO SCH (08:35)
[2025-01-11] MEDS: PANTOPRAZOLE 40 MG TABLET PO SCH (08:35)
[2025-01-11] MEDS: GABAPENTIN 100 MG CAP PO SCH (08:35)
[2025-01-11 10:34] LABS: Basophils # (A) 0.05 10*3/uL (0.00-0.10); Basophils % (A) 0.3 %; Eosinophils # (A) 0.11 10*3/uL (0.04-0.35); Eosinophils % (A) 0.8 %; HCT 31.3 % (37.2-46.3); Lymphocytes # (A) 1.78 10*3/uL (0.90-5.00); Lymphocytes % (A) 12.3 %; MCH 23.3 pg (27.0-32.0); MCHC 29.7 g/dL (32.0-37.0); MCV 78.3 fL (80.0-97.0); Mean Platelet Volume 9.9 fL (9.5-12.2); Monocytes # (A) 0.58 10*3/uL (0.20-1.00); Neutrophils # (A) 11.83 10*3/uL (1.80-7.70); Neutrophils % (A) 82.1 %; Platelet Count 358 10*3/uL (140-440); RDW 16.7 % (11.5-14.5); WBC 14.42 10*3/uL (4.50-10.00)
[2025-01-11 10:45] LABS: HGB 9.3 g/dL (12.0-15.0)
[2025-01-11 10:46] LABS: ALT 51 U/L (4-34); AST 52 U/L (14-36); African American GFR (CKD) >90 (>60 ml/min/1.73 sqM); Albumin 2.7 g/dL (3.5-5.0); Alkaline Phosphatase 74 U/L (38-126); Anion Gap 6 mmol/L; Blood Urea Nitrogen 25 mg/dL (7-17); Calcium 7.8 mg/dL (8.4-10.2); Carbon Dioxide 17 mmol/L (22-30); Chloride 116 mmol/L (98-107); Glucose 119 mg/dL (74-99); Non-African American GFR(CKD) >90 (>60 ml/min/1.73 sqM); Potassium 4.2 mmol/L (3.5-5.1); Sodium 139 mmol/L (137-145); Total Bilirubin 0.5 mg/dL (0.2-1.3); Total Protein 4.8 g/dL (6.3-8.2)
--- NOTE | 2025-01-11 12:08 | P.PN ---
Subjective Progress Note Date: 01/11/25 54-year-old female with past medical history significant for seizure disorder, follows at [facility] was brought to the ED ER for altered mental status after breakthrough seizure. Patient sister and older son present at the bedside. Patient currently lethargic and confused. Family reported that patient has long history of spells, patient was following at [facility] for the last 4 years, was diagnosed with epilepsy 2 years ago at [facility], patient has been on Keppra, most recently her dose was 7 to 15 mg twice daily. Patient sister reported that patient used to have seizures almost daily before she was put on Keppra and since then she would have 1 seizure about a week, pat ient does not drive. Patient has been compliant with medications. Patient seizure consist of rapid blinking and tremoring of her hands lasting for couple of minutes. Patient is usually lethargic after seizures, remains sleepy, tiredness may last for 1 to 2 days. Family reported last seizure on 01/06/2025. Patient is afebrile, heart rate 68, respiratory 17, blood pressure 93/55, saturating 98% on 3 L. WBCs 10.5 hemoglobin 13.6 platelet 589. INR 0.9. VBG showed pH 7.31 [id number] HCO3 17. Sodium 140 potassium 4.4 chloride 108 CO2 11 BUN 25 creatinine 0.96. Lactate initially was 10.8, trended down to 2.3. UA unremarkable. Urine drug screen detected opiates. CT abdomen pelvis showed status post sleeve gastrectomy, changes suggestive of GERD and gastroenteritis, reactive right lower quadrant trace free fluid, patchy groundglass changes in lower lungs likely is a atelectasis. CT head negative for any acute process, showed 6 mm cerebellar tonsillar ectopia unclear clinical significance. 01/11. Patient seen and examined. No further episodes of seizures. Labs reviewed showed WBC 14.42, hemoglobin 9.3, sodium 139, testing 4.2, BUN 25, creatinine 0.72 AST 52, ALT 51. Complaining of lethargy. States she feels weak today REVIEW OF SYSTEMS: CONSTITUTIONAL: No fever, no malaise,. CARDIOVASCULAR: No chest pain, no palpitations, no syncope. PULMONARY: No shortness of breath, no cough, GASTROINTESTINAL: No diarrhea, no nausea, no vomiting, no abdominal pain. NEUROLOGICAL: No headaches, no weakness, PHYSICAL EXAMINATION: GENERAL: The patient is alert and oriented x3, ill looking HEENT: Pupils are round and equally reacting to light. EOMI. No scleral icterus. No conjunctival pallor. Normocephalic, atraumatic. No pharyngeal erythema. No thyromegaly. CARDIOVASCULAR: S1 and S2 present. No murmurs, rubs, or gallops. PULMONARY: Chest is clear to auscultation, no wheezing or crackles. ABDOMEN: Soft, nontender, nondistended, normoactive bowel sounds. No palpable organomegaly. MUSCULOSKELETAL: No joint swelling or deformity. EXTREMITIES: No cyanosis, clubbing, or pedal edema. NEUROLOGICAL: Gross neurological examination did not reveal any focal deficits. SKIN: No rashes. Assessment and plan Seizure disorder: Breakthrough seizure: Patient has history of epilepsy, diagnosed at [facility] 2 years ago, currently on Keppra 750 mg twice daily, presented with lethargy and altered mental status after breakthrough seizures. EEG performed in the ED showed mild encephalopathy, no epileptiform activity. No electrographic seizure was recorded. Neurology consultedincrease Keppra to 1000 mg twice daily Seizure precautions Neurology following Lactic acidosis: Secondary to above No sign or symptom of infection, doubt sepsis DC fluids Diabetes: In remission Hypertension History of bariatric surgery Labs and medication were reviewed.. Continue same treatment. Continue with symptomatic treatment. Resume home medication. Monitor labs and vitals. DVT and GI prophylaxis. Further recommendations as per clinical course of the patient Dictation was produced using [employer] dictation software. please excuse any grammatical, word or spelling errors. Objective - Vital Signs Vital signs: Vital Signs Temp 96.8 F L 01/10/25 07:48 Pulse 127 H 01/11/25 11:00 Resp 16 01/11/25 11:00 BP 127/60 01/11/25 11:00 Pulse Ox 94 L 01/11/25 11:00 FiO2 Intake & Output 01/10/25 01/11/25 01/11/25 18:59 06:59 18:59 Output Total 800 Balance -800 Weight 124.738 kg Output: Urine 800 - Labs CBC & Chem 7: 01/11/25 10:12 01/11/25 10:12 Labs: Abnormal Lab Results - Last 24 Hours (Table) 01/10/25 01/10/25 01/10/25 Range/Units 15:01 15:01 18:21 WBC (4.50-10.00) 10*3/uL RBC (4.10-5.20) 10*6/uL Hgb (12.0-15.0) g/dL Hct (37.2-46.3) % MCV (80.0-97.0) fL MCH (27.0-32.0) pg MCHC (32.0-37.0) g/dL Immature Gran # (0.00-0.04) 10*3/uL Neutrophils # (1.80-7.70) 10*3/uL VBG pCO2 35 L (37-51) mmHg VBG HCO3 17 L (24-28) mmol/L Chloride (98-107) mmol/L Carbon Dioxide (22-30) mmol/L BUN (7-17) mg/dL Glucose (74-99) mg/dL Plasma Lactic Acid Hugo 2.3 H* 2.5 H* (0.7-2.0) mmol/L Calcium (8.4-10.2) mg/dL AST (14-36) U/L ALT (4-34) U/L Total Protein (6.3-8.2) g/dL Albumin (3.5-5.0) g/dL 01/11/25 01/11/25 Range/Units 10:12 10:12 WBC 14.42 H (4.50-10.00) 10*3/uL RBC 4.00 L (4.10-5.20) 10*6/uL Hgb 9.3 L D (12.0-15.0) g/dL Hct 31.3 L (37.2-46.3) % MCV 78.3 L (80.0-97.0) fL MCH 23.3 L (27.0-32.0) pg MCHC 29.7 L (32.0-37.0) g/dL Immature Gran # 0.07 H (0.00-0.04) 10*3/uL Neutrophils # 11.83 H (1.80-7.70) 10*3/uL VBG pCO2 (37-51) mmHg VBG HCO3 (24-28) mmol/L Chloride 116 H (98-107) mmol/L Carbon Dioxide 17 L (22-30) mmol/L BUN 25 H (7-17) mg/dL Glucose 119 H (74-99) mg/dL Plasma Lactic Acid Hugo (0.7-2.0) mmol/L Calcium 7.8 L (8.4-10.2) mg/dL AST 52 H (14-36) U/L ALT 51 H (4-34) U/L Total Protein 4.8 L (6.3-8.2) g/dL Albumin 2.7 L (3.5-5.0) g/dL
[2025-01-11 16:13] VITALS: RESP 16
--- NOTE | 2025-01-11 18:18 | P.PN ---
Subjective Progress Note Date: 01/11/25 Patient was seen for follow-up. Laying in the bed. No further seizures reported. She still feels "fuzzy head" from recent seizure, but otherwise unremarkable. Objective - Vital Signs Vital signs: Vital Signs Temp 98.2 F 01/11/25 15:38 Pulse 87 01/11/25 15:38 Resp 16 01/11/25 15:38 BP 113/72 01/11/25 15:38 Pulse Ox 97 01/11/25 15:38 FiO2 Intake & Output 01/10/25 01/11/25 01/11/25 18:59 06:59 18:59 Intake Total 128 Output Total 2175 Balance -2046 Weight 124.738 kg 124.738 kg Intake: IV 10 Invasive Line 1 10 Oral 118 Output: Urine 2175 Other: Voiding Method Indwelling Catheter - Exam Patient is alert and awake fully oriented. Speech and language functions are normal. Strength is normal. - Labs CBC & Chem 7: 01/11/25 10:12 01/11/25 10:12 Labs: Abnormal Lab Results - Last 24 Hours (Table) 01/10/25 01/11/25 01/11/25 Range/Units 18:21 10:12 10:12 WBC 14.42 H (4.50-10.00) 10*3/uL RBC 4.00 L (4.10-5.20) 10*6/uL Hgb 9.3 L D (12.0-15.0) g/dL Hct 31.3 L (37.2-46.3) % MCV 78.3 L (80.0-97.0) fL MCH 23.3 L (27.0-32.0) pg MCHC 29.7 L (32.0-37.0) g/dL Immature Gran # 0.07 H (0.00-0.04) 10*3/uL Neutrophils # 11.83 H (1.80-7.70) 10*3/uL Chloride 116 H (98-107) mmol/L Carbon Dioxide 17 L (22-30) mmol/L BUN 25 H (7-17) mg/dL Glucose 119 H (74-99) mg/dL Plasma Lactic Acid Hugo 2.5 H* (0.7-2.0) mmol/L Calcium 7.8 L (8.4-10.2) mg/dL AST 52 H (14-36) U/L ALT 51 H (4-34) U/L Total Protein 4.8 L (6.3-8.2) g/dL Albumin 2.7 L (3.5-5.0) g/dL Assessment and Plan Assessment: * Breakthrough seizure in the patient diagnosed with epilepsy at [facility]. * Transient hypotension, unclear cause. * Obesity * Diabetes, in remission * Hypertension * History of bariatric surgery Plan: * EEG was abnormal due to presence of mixed frequencies suggestive of mild encephalopathy or medication effect. No epileptiform activity was seen. No electrographic seizure was recorded. * Patient has been on Keppra 750 mg twice daily. We will increase the dose to 1000 mg twice daily. Patient tolerating higher dose of Keppra well. * Recommend patient follow-up with her neurologist outpatient. * Patient is aware of [place] state law of no driving unless seizure-free for 6 months, climbing ladders, operating dangerous machinery or unsupervised swimming. * Neurologically clear for discharge.
--- NOTE | 2025-01-12 12:11 | P.DS ---
Providers Date of admission: 01/10/25 12:20 Expected date of discharge: 01/12/25 Attending physician: Vanesa Solares Consults: 01/10/25 12:18 Consult Physician Routine Consulting Provider: Henrik Covarrubias Consult Reason/Comments: seizure Do you want consulting provider notified?: Already Contacted Primary care physician: Jasiel Meléndez Hospital Course: Discharge diagnoses; Seizure disorder: Breakthrough seizure: Patient has history of epilepsy, diagnosed at [facility] 2 years ago, currently on Keppra 750 mg twice daily, presented with lethargy and altered mental status after breakthrough seizures. EEG performed in the ED showed mild encephalopathy, no epileptiform activity. No electrographic seizure was recorded. Neurology consultedincrease Keppra to 1000 mg twice daily Hospital course; 54-year-old female with past medical history significant for seizure disorder, follows at [facility] was brought to the ED ER for altered mental status after breakthrough seizure. Patient sister and older son present at the bedside. Patient currently lethargic and confused. Family reported that patient has long history of spells, patient was following at [facility] for the last 4 years, was diagnosed with epilepsy 2 years ago at [facility], patient has been on Keppra, most recently her dose was 7 to 15 mg twice daily. Patient sister reported that patient used to have seizures almost daily before she was put on Keppra and since then she would have 1 seizure about a week, patient does not drive. Patient has been compliant with medications. Patient seizure consist of rapid blinking and tremoring of her hands lasting for couple of minutes. Patient is usually lethargic after seizures, remains sleepy, tiredness may last for 1 to 2 days. Family reported last seizure on 01/06/2025. Patient is afebrile, heart rate 68, respiratory 17, blood pressure 93/55, saturating 98% on 3 L. WBCs 10.5 hemoglobin 13.6 platelet 589. INR 0.9. VBG showed pH 7.31 [id number] HCO3 17. Sodium 140 potassium 4.4 chloride 108 CO2 11 BUN 25 creatinine 0.96. Lactate initially was 10.8, trended down to 2.3. UA unremarkable. Urine drug screen detected opiates. CT abdomen pelvis showed status post sleeve gastrectomy, changes suggestive of GERD and gastroenteritis, reactive right lower quadrant trace free fluid, patchy groundglass changes in lower lungs likely is a atelectasis. CT head negative for any acute process, showed 6 mm cerebellar tonsillar ectopia unclear clinical significance. 01/11. Patient seen and examined. No further episodes of seizures. Labs reviewed showed WBC 14.42, hemoglobin 9.3, sodium 139, testing 4.2, BUN 25, creatinine 0.72 AST 52, ALT 51. Complaining of lethargy. States she feels weak today 01/12. Patient seen and examined. No further episode of seizures. Neurology cleared the patient for discharge. Being discharged on increasing dose of Keppra of 1000 mg twice a day PHYSICAL EXAMINATION: GENERAL: The patient is alert and oriented x3, not in any acute distress. Well developed, well nourished. HEENT: Pupils are round and equally reacting to light. EOMI. No scleral icterus. No conjunctival pallor. Normocephalic, atraumatic. No pharyngeal erythema. No thyromegaly. CARDIOVASCULAR: S1 and S2 present. No murmurs, rubs, or gallops. PULMONARY: Chest is clear to auscultation, no wheezing or crackles. ABDOMEN: Soft, nontender, nondistended, normoactive bowel sounds. No palpable organomegaly. MUSCULOSKELETAL: No joint swelling or deformity. EXTREMITIES: No cyanosis, clubbing, or pedal edema. NEUROLOGICAL: Gross neurological examination did not reveal any focal deficits. SKIN: No rashes. Dictation was produced using [email or web address] dictation software. please excuse any grammatical, word or spelling errors. Patient Condition at Discharge: Fair Plan - Discharge Summary New Discharge Prescriptions: New levETIRAcetam [Keppra] 1,000 mg PO Q12HR 30 Days #60 tab Continue amLODIPine [Norvasc] 10 mg PO HS Hydrocodone/Acetaminophen [[place] 10-325] 1 tab PO QID PRN PRN Reason: Pain Metoprolol Tartrate [Lopressor] 50 mg PO BID lisinopriL [Zestril] 40 mg PO HS Gabapentin [Neurontin] 100 mg PO DAILY DULoxetine HCL [Cymbalta] 60 mg PO BID Omeprazole 20 mg PO DAILY Cetirizine HCl [Zyrtec] 10 mg PO DAILY bisacodyL [Dulcolax] 5 mg PO DAILY Solifenacin Succinate [Vesicare] 10 mg PO HS Gabapentin [Neurontin] 400 mg PO HS Discontinued Naproxen 500 mg PO BID PRN PRN Reason: Pain levETIRAcetam [Keppra] 750 mg PO BID Discharge Medication List Hydrocodone/Acetaminophen [[place] 10-325] 1 tab PO QID PRN 04/04/15 [History] Metoprolol Tartrate [Lopressor] 50 mg PO BID 04/04/15 [History] amLODIPine [Norvasc] 10 mg PO HS 04/04/15 [History] lisinopriL [Zestril] 40 mg PO HS 04/04/15 [History] Gabapentin [Neurontin] 100 mg PO DAILY 03/12/16 [History] DULoxetine HCL [Cymbalta] 60 mg PO BID 11/09/19 [History] Omeprazole 20 mg PO DAILY 03/24/22 [History] Gabapentin [Neurontin] 400 mg PO HS 05/31/22 [History] Cetirizine HCl [Zyrtec] 10 mg PO DAILY 11/14/23 [History] bisacodyL [Dulcolax] 5 mg PO DAILY 11/14/23 [History] Solifenacin Succinate [Vesicare] 10 mg PO HS 01/10/25 [History] levETIRAcetam [Keppra] 1,000 mg PO Q12HR 30 Days #60 tab 01/12/25 [Rx] Follow up Appointment(s)/Referral(s): Jasiel Meléndez MD [Primary Care Provider] - 1-2 days Discharge Disposition: HOME SELF-CARE
[2025-01-12 13:03] VITALS: BP 131/75; PULSE 82; TEMP 98.7
== END 2025-01-12 15:33 | disposition home or self-care (01) ==
LOC: EC 07:47 → 3SCARD 12:20
PROVIDERS: ADMIT Hospitalist; ATTEND Hospitalist
DX: G40.909 Epilepsy, unspecified, not intractable, without status epilepticus (principal); I95.9 Hypotension, unspecified; E87.20 Acidosis, unspecified; I10 Essential (primary) hypertension; F32.A Depression, unspecified; F41.9 Anxiety disorder, unspecified; E11.40 Type 2 diabetes mellitus with diabetic neuropathy, unspecified; E66.9 Obesity, unspecified; Z68.28 Body mass index [BMI] 28.0-28.9, adult; Z98.84 Bariatric surgery status; Z79.899 Other long term (current) drug therapy
CPT/HCPCS: 96376 ×3; 96361 ×3; 96372 ×4; 96365; 96366 ×2; 96367; 96374; 96375; 99291; 36415; 95816; 93005; 80053 ×2; 82803; 83605; 83735; 84484; 85025 ×2; 85610; 85730; 81003; 80306; 80143; 80179; 71045; 70450; 74177; G0378 ×3; J3370 ×2; J1644 ×3; J0692; J1953 ×3; Q9967